=== PATIENT | female | born 1980 | race Caucasian/White ===

== ENCOUNTER → 2020-10-26 08:28 | Outpatient (BNVA) | payer OTHER, MEDICARE, SELFPAY | PROVIDERS: PCP Internal Medicine; Referring Provider Internal Medicine; Visit Provider Surgery ==

== ENCOUNTER 2020-10-31 10:25 | Day surgery (SDC) | payer OTHER, MEDICARE, SELFPAY ==
--- NOTE | 2020-10-29 12:59 | HO.ANESPROP2 ---
Documented by User: Fidelia Landry 10/29/20 13:00 HPI - Anesthesia Eval Consult details Narrative: 40yo F for Excision of Pilonidal Cyst Multiple Med Allergies PMFSH Active Problems Active Problems: All Active Problems (Updated 10/08/20 @ 10:05 by Rene Larsen MD) Pilonidal cyst (Acute) Obesity (Acute) Cyst near tailbone (Acute) Past Medical History Medical History Cyst near tailbone Obesity Obsessive compulsive disorder Overflow stress urinary incontinence in female Posttraumatic stress disorder Seizure disorder Family History Family History Father Chronic mental illness PCK (polycystic kidney disease) Hypothyroidism Post traumatic stress disorder (PTSD) Mother Hyperthyroidism Post traumatic stress disorder (PTSD) Surgical History Surgical History History of lithotripsy Social History Social History Alcohol intake: never Patient Tobacco Use Status: Former Tobacco user Tobacco use type: Cigarette Cigarettes Per Day: 3 Years Smoked: 19 Smoked in Last 30 Days: Yes Use of substances other than those prescribed or required for medical reasons: Yes Are you DNR?: No Advance Directives: No Advance Directives Information Provided: Yes Meds Allergies Allergy/AdvReac Type Severity Reaction Status Date / Time buspirone [From BuSpar] Allergy Severe Seizure Verified 10/08/20 09:58 acetaminophen [Vicodin] Allergy Unknown Unknown Verified 03/16/20 08:21 gabapentin Allergy Unknown memory loss Verified 03/16/20 08:21 hydrocodone [Vicodin] Allergy Unknown Unknown Verified 03/16/20 08:21 lactose [LACTOSE] Allergy Unknown unknown Unverified 02/02/20 17:37 tramadol AdvReac Intermediate hallucinati Verified 10/09/20 15:51 ons Home Medications Medication Instructions Recorded Confirmed Last Taken Type clonazepam 0.5 mg tablet 0.5 mg PO TID PRN 03/19/20 10/26/20 10/31/20 08:00 History lamotrigine 25 mg tablet 50 mg PO BID 03/19/20 10/26/20 10/31/20 08:00 History propranolol 20 mg tablet 20 mg PO DAILY 03/19/20 10/26/20 10/31/20 08:00 History vilazodone 40 mg tablet 40 mg PO DAILY 03/19/20 10/26/20 10/31/20 08:00 History lamotrigine 200 mg tablet 200 mg PO BID 03/28/20 10/26/20 10/31/20 08:00 History quetiapine 150 mg tablet,extended 150 mg PO DAILY 10/08/20 10/26/20 Unknown History release 24 hr Exam Exam Date and Time: October 29, 2020 1259 Assessment and Plan Assessment Anesthesia Assessment: Chart Reviewed Documented by User: Tram Lundberg 10/31/20 10:55 PMFSH Past Medical History Medical History Cyst near tailbone Obesity Obsessive compulsive disorder Overflow stress urinary incontinence in female Posttraumatic stress disorder Seizure disorder Family History Family History Father Chronic mental illness PCK (polycystic kidney disease) Hypothyroidism Post traumatic stress disorder (PTSD) Mother Hyperthyroidism Post traumatic stress disorder (PTSD) Surgical History Surgical History History of lithotripsy Social History Social History Alcohol intake: never Patient Tobacco Use Status: Former Tobacco user Tobacco use type: Cigarette Cigarettes Per Day: 3 Years Smoked: 19 Smoked in Last 30 Days: Yes Use of substances other than those prescribed or required for medical reasons: Yes Are you DNR?: No Advance Directives: No Advance Directives Information Provided: Yes Meds Allergies Allergy/AdvReac Type Severity Reaction Status Date / Time buspirone [From BuSpar] Allergy Severe Seizure Verified 10/08/20 09:58 acetaminophen [Vicodin] Allergy Unknown Unknown Verified 03/16/20 08:21 gabapentin Allergy Unknown memory loss Verified 03/16/20 08:21 hydrocodone [Vicodin] Allergy Unknown Unknown Verified 03/16/20 08:21 lactose [LACTOSE] Allergy Unknown unknown Unverified 02/02/20 17:37 tramadol AdvReac Intermediate hallucinati Verified 10/09/20 15:51 ons Home Medications Medication Instructions Recorded Confirmed Last Taken Type clonazepam 0.5 mg tablet 0.5 mg PO TID PRN 03/19/20 10/26/20 10/31/20 08:00 History lamotrigine 25 mg tablet 50 mg PO BID 03/19/20 10/26/20 10/31/20 08:00 History propranolol 20 mg tablet 20 mg PO DAILY 03/19/20 10/26/20 10/31/20 08:00 History vilazodone 40 mg tablet 40 mg PO DAILY 03/19/20 10/26/20 10/31/20 08:00 History lamotrigine 200 mg tablet 200 mg PO BID 03/28/20 10/26/20 10/31/20 08:00 History quetiapine 150 mg tablet,extended 150 mg PO DAILY 10/08/20 10/26/20 Unknown History release 24 hr Exam Airway Mallampati Class: III TM Dist: >3cm Neck ROM: Full
[2020-10-31] VITALS (7 sets, daily range): BP systolic 134–191; BP diastolic 83–109; PULSE 77–94; RESP 16–18; TEMP 36.3–36.7; O2SAT 94–99; BMI 39.4
[2020-10-31 10:49] LABS: UPreg QC Valid YES; Urine Pregnancy NEGATIVE (NEGATIVE)
[2020-10-31] MEDS: Lactated Ringers 1,000 ML 100 ML IVCONT (11:07)
--- NOTE | 2020-10-31 11:28 | MHC.SHP ---
Pre-Procedural Eval Section A The patient is an INPATIENT: No Changes since office visit: Yes Patient answered all questions; No Cold of Flu in the past 2 weeks, No New Medical Problems and No Changes in Medication The History & Physical has been completed within 30 days and I have reviewed it.: Yes Section B Chief Complaint: Pilonidal cyst Allergies: Allergies Allergy/AdvReac Type Severity Reaction Status Date / Time buspirone [From BuSpar] Allergy Severe Seizure Verified 10/08/20 09:58 acetaminophen [Vicodin] Allergy Unknown Unknown Verified 03/16/20 08:21 gabapentin Allergy Unknown memory loss Verified 03/16/20 08:21 hydrocodone [Vicodin] Allergy Unknown Unknown Verified 03/16/20 08:21 lactose [LACTOSE] Allergy Unknown unknown Verified 10/31/20 11:08 tramadol AdvReac Intermediate hallucinati Verified 10/09/20 15:51 ons Plan Diagnosis/Plan: Unchanged I have reviewed the history and physical and performed a pertinent physical examination on my patient. No changes have occurred unless specified.
--- NOTE | 2020-10-31 12:57 | P.OP_ITS ---
Operative Note Operative Note Date of Service: 10/31/20 Narrative: Preoperative diagnosis: Pilonidal cyst Postoperative diagnosis: Same Procedure: Pilonidal cystectomy Surgeon: Lui Panigaua MD Sweeper Operator Highways: No physician Anesthesia: General endotracheal Indications for procedure: 40-year-old female presenting with a persistent draining well cyst for the past 6 months with drainage noted almost daily. Patient denies significant pain, fever, or chills. Operative findings: Small pilonidal cyst located in the upper intergluteal cleft. Specimen: Pilonidal cyst Estimated blood loss: 10 mL Complications: None Procedure details: Patient was brought to the OR placed in a supine position. After administering general anesthesia she was placed in a prone position. Patient's intergluteal cleft was prepped with Betadine and draped in a sterile fashion. A surgical time-out was called the consent confirmed. Patient received preoperative antibiotics and Venodyne boots were in place. Local anesthesia consisting of 0.25% Sensorcaine was then infiltrated circumfer entially around the pilonidal cyst. A curvilinear elliptical incision was then created around the pilonidal cyst include a punctum located slightly below. The incision measured approximately 3 cm in length. Was then carried out through subcutaneous tissue around the cyst wall and down to the presacral fascia. The lesion was then excised and sent to pathology for further examination. Hemostasis was then assured using electrocautery. The wounds were irrigated thoroughly with saline solution and suctioned dry. Skin was then mobilized bilaterally. Deep subcutaneous tissue was then reapprox imated using interrupted 3-0 Polysorb sutures. Dermis was reapproximated using interrupted 3-0 Polysorb sutures. Skin was closed using interrupted 3-0 nylon sutures in a mattress formation. Sterile dressings were then applied. The patient tolerated the procedure well. Sponge, instrument, and needle counts reported as correct. The patient was transferred to PACU in stable condition.
[2020-10-31] MEDS: oxyCODONE HCl Immed Release 5 MG TABLET PO (13:50)
== END 2020-10-31 14:38 | disposition home or self-care (01) ==
PROVIDERS: Nurse Practitioner; PCP Internal Medicine; Visit Provider Surgery
PROC: (CPT 11771; principal; 2020-10-31 12:10)
DX: L05.91 Pilonidal cyst without abscess (principal); Z88.5 Allergy status to narcotic agent; Z88.8 Allergy status to other drugs, medicaments and biological substances
CPT/HCPCS: 11771; 81025; 87071; 87205; 88304; J0690; J1100; J2250; J2405; J3010

== ENCOUNTER → 2020-11-06 10:34 | Outpatient (BNVA) | payer OTHER, MEDICARE, SELFPAY | PROVIDERS: PCP Internal Medicine; Visit Provider Dietitian, Registered | DX: E66.9 Obesity, unspecified (principal); Z68.39 Body mass index [BMI] 39.0-39.9, adult | CPT/HCPCS: 97802 ==

== ENCOUNTER 2020-11-13 15:41 | Outpatient (REF) | payer OTHER, MEDICARE, SELFPAY ==
[2020-11-13 16:54] LABS: Glucose Urine UA NEG (NEG); Leukocyte Esterase Urine NEG (NEG); Nitrite Urine NEG (NEG); Specific Gravity - Urine >= 1.030 (1.005-1.025); Urine Blood NEG (NEG); Urine Ketones 5 MG/DL (NEG); Urine Protein 1+ MG/DL (NEG-TRACE)
[2020-11-13 16:55] LABS: Appearance Urine HAZY; Color Urine YELLOW
[2020-11-13 17:30] LABS: Bacteria Urine 1+ /LPF; Calcium Oxalate Crystals Urine TRACE /LPF; Mucus Urine 1+ /LPF; RBC Urine 0-2 /HPF (0); Squamous Epithelial Cell Urine TRACE /LPF; WBC Urine 0-2 /HPF (0-4)
== END 2020-11-13 15:42 | disposition home or self-care (01) ==
LOC: HO.LAB 15:41
PROVIDERS: PCP Internal Medicine; Referring Provider Internal Medicine; Visit Provider Surgery
DX: L05.91 Pilonidal cyst without abscess (principal)
CPT/HCPCS: 81001; 99212

== ENCOUNTER → 2020-12-20 15:01 | Outpatient (BNVA) | payer OTHER, MEDICARE, SELFPAY | PROVIDERS: PCP Internal Medicine; Visit Provider Surgery | DX: L05.91 Pilonidal cyst without abscess (principal); Z13.9 Encounter for screening, unspecified ==

== ENCOUNTER 2021-01-07 09:31 | Outpatient (REF) | payer OTHER, MEDICARE, SELFPAY ==
[2021-01-07 11:05] LABS: Glucose Urine UA NEG (NEG); Leukocyte Esterase Urine NEG (NEG); Nitrite Urine NEG (NEG); PH 6.5 (5.0-8.0); Specific Gravity - Urine 1.015 (1.005-1.025); Urine Blood NEG (NEG); Urine Ketones NEG (NEG); Urine Protein NEG (NEG-TRACE)
[2021-01-07 11:13] LABS: Appearance Urine CLEAR; Color Urine YELLOW
[2021-01-07 11:30] LABS: Bacteria Urine TRACE /LPF; RBC Urine 0-2 /HPF (0); Squamous Epithelial Cell Urine 1+ /LPF; WBC Urine 0-2 /HPF (0-4)
== END 2021-01-07 09:32 | disposition home or self-care (01) ==
LOC: HO.LAB 09:31
PROVIDERS: PCP Internal Medicine; Visit Provider Internal Medicine
DX: R30.0 Dysuria (principal)
CPT/HCPCS: 81001; 87086

== ENCOUNTER 2021-01-25 10:56 | Outpatient (REF) | payer OTHER, MEDICARE, SELFPAY | END 2021-01-25 10:57 | disposition home or self-care (01) | LOC: HO.LAB 10:56 | PROVIDERS: PCP Internal Medicine; Visit Provider Internal Medicine | DX: Z20.822 Contact with and (suspected) exposure to COVID-19 (principal) | CPT/HCPCS: U0003; U0005 ==

== ENCOUNTER 2021-01-29 13:51 | Outpatient (REF) | payer OTHER, MEDICARE, SELFPAY | END 2021-01-29 13:52 | disposition home or self-care (01) | LOC: HO.LAB 13:51 | PROVIDERS: PCP Internal Medicine; Visit Provider Internal Medicine | DX: Z20.822 Contact with and (suspected) exposure to COVID-19 (principal) | CPT/HCPCS: C9803; U0003; U0005 ==

== ENCOUNTER 2021-04-17 13:07 | Outpatient (REF) | payer OTHER, MEDICARE, SELFPAY ==
[2021-04-17 14:11] LABS: Appearance Urine CLEAR; Color Urine YELLOW; Glucose Urine UA NEG (NEG); Leukocyte Esterase Urine NEG (NEG); Nitrite Urine NEG (NEG); Specific Gravity - Urine 1.015 (1.005-1.025); Urine Blood NEG (NEG); Urine Ketones NEG (NEG); Urine Protein TRACE MG/DL (NEG-TRACE)
== END 2021-04-17 13:08 | disposition home or self-care (01) ==
LOC: HO.LAB 13:07
PROVIDERS: PCP Internal Medicine; Visit Provider Internal Medicine
DX: R30.0 Dysuria (principal)
CPT/HCPCS: 81003

== ENCOUNTER 2021-08-21 11:57 | Outpatient (REF) | payer OTHER, MEDICARE, SELFPAY ==
[2021-08-21 13:13] LABS: Appearance Urine HAZY; Color Urine YELLOW; Glucose Urine UA NEG (NEG); Leukocyte Esterase Urine TRACE (NEG); Nitrite Urine NEG (NEG); UACC Culture Trigger YES; Urine Blood NEG (NEG); Urine Ketones NEG (NEG); Urine Protein TRACE MG/DL (NEG-TRACE)
[2021-08-21 13:25] LABS: Bacteria Urine 2+ /LPF; Squamous Epithelial Cell Urine 2+ /LPF; WBC Urine 30-49 /HPF (0-4)
== END 2021-08-21 11:58 | disposition home or self-care (01) ==
LOC: HO.LAB 11:57
PROVIDERS: PCP Internal Medicine; Visit Provider Internal Medicine
DX: R30.0 Dysuria (principal)
CPT/HCPCS: 81001; 87086

== ENCOUNTER 2022-02-06 13:57 | Outpatient (REF) | payer OTHER, MEDICARE, SELFPAY ==
[2022-02-06 15:17] LABS: Appearance Urine Hazy; Glucose Urine UA Negative (Negative); Leukocyte Esterase Urine Trace (Negative); PH 6.5 (5.0-9.0); Specific Gravity - Urine 1.025 (1.005-1.025); UMIC TRIGGER UACC YES; Urine Blood Large (3+) (Negative); Urine Ketones Trace mg/dL (Negative); Urine Protein 300 (3+) mg/dL (Neg-Trace)
[2022-02-06 15:21] LABS: Color Urine ORANGE; Nitrite Urine Positive (Negative)
[2022-02-06 15:29] LABS: Bacteria Urine 3+ (None Seen); Hyaline Casts Urine 0-2 /LPF (0-2); RBC Urine >20 /HPF (0-2); UACC Culture Trigger YES
== END 2022-02-06 13:58 | disposition home or self-care (01) ==
LOC: HO.LAB 13:57
PROVIDERS: PCP Internal Medicine; Visit Provider Internal Medicine
DX: R30.0 Dysuria (principal)
CPT/HCPCS: 81001; 81003; 87086; 87088; 87186

== ENCOUNTER 2022-04-09 14:44 | Outpatient (REF) | payer OTHER, MEDICARE, SELFPAY ==
--- NOTE | ~2022-04-09 | US_ITS ---
EXAMINATION: US PELVIS CLINICAL INFORMATION: Encounter for other general counseling and advice on contraception. COMPARISON: None TECHNIQUE: Ultrasound of the pelvis was performed using both transabdominal and transvaginal transducers along with Doppler. Transvaginal imaging was performed due to inadequate visualization transabdominally. FINDINGS: Uterus: The uterus is retroverted and retroflexed and measures 8.0 cm in length, 4.4 cm in AP and 5.2 cm in transverse dimensions. The double wall endometrial thickness is 1.5 cm. There is an echogenic polyp within the endometrium measuring 0.9 x 0.7 x 0.8 cm. The uterus is smooth in contour and has normal myometrial echogenicity. There are several hypoechoic lesions seen. 1. Lesion in the right uterus measures 2.1 x 1.8 x 2.3 cm. 2. Lesion in the right uterus measures 0.9 x 0.9 x 1.0 cm. 3. Lesion in the right uterus measuring 1.8 x 1.4 x 1.4 cm. 4. Lesion in the left uterus measures 1.8 x 1.6 x 1.5 cm. 5. Lesion in the left uterus measures 1.9 x 1.5 x 1.6 cm. There is minimal fluid within the cervix with a small, echogenic, nonmobile polyp measuring 0.3 x 0.3 x 0.3 cm. Adnexa: Both ovaries are visualized. There is normal color flow to the adnexa. There is no ovarian torsion. There is no pelvic ascites or fluid collection. Right ovary measures 2.8 x 1.9 x 2.5 cm and volume 7.0 mL. Previously, the right ovary measured 3.2 x 1.6 x 1.6 cm. Left ovary measures 3.6 x 2.7 x 2.5 cm and volume 12.7 mL. There is a simple, anechoic cyst measuring 2.2 x 2.2 x 2.0 cm. US/US pelvic and transvaginal IMPRESSION: 1. Multiple uterine fibroids as described above. 2. Endometrial polyp measuring 0.9 cm. 3. Small cervical polyp measuring 0.3 cm. 4. Simple cyst left ovary. 5. The right ovary is unremarkable. 6. There is no free fluid in the cul-de-sac.
== END 2022-04-09 14:45 | disposition home or self-care (01) ==
LOC: HO.US 14:44
PROVIDERS: Visit Provider Advanced Practice Midwife
DX: L68.0 Hirsutism (principal); N91.2 Amenorrhea, unspecified; Z91.89 Other specified personal risk factors, not elsewhere classified
CPT/HCPCS: 76830; 76856

== ENCOUNTER → 2022-05-21 08:00 | Outpatient (BNVA) | payer OTHER, MEDICARE, SELFPAY | PROVIDERS: PCP Internal Medicine; Visit Provider Obstetrics & Gynecology | DX: Z13.89 Encounter for screening for other disorder (principal) ==

== ENCOUNTER 2022-05-30 12:17 | Day surgery (SDC) | payer OTHER, MEDICARE, SELFPAY ==
[2022-05-26 20:03] VITALS: BMI 39.4
--- NOTE | 2022-05-29 10:08 | HO.ANESPROP2 ---
Documented by User: Fidelia Landry NP 05/29/22 10:09 HPI - Anesthesia Eval Consult details Narrative: 42yo F for D&C Hysteroscopy,possible polypectomy,possible myomectomy PMFSH Active Problems Active Problems: All Active Problems (Updated 05/27/22 @ 08:37 by Annette Frederick RN) Pilonidal cyst (Acute) Dysuria (Acute) Bipolar 2 disorder, major depressive episode (Acute) Acrochordon (Acute) Actinic keratosis (Acute) Breast cancer screening by mammogram (Acute) Nephrolithiasis (Acute) Tobacco abuse (Acute) BCP ( control pills) initiation (Acute) Anovulatory amenorrhea (Acute) At risk for diabetes mellitus (Acute) Hirsutism (Acute) control counseling (Acute) Fibroids (Acute) Endometrial polyp (Acute) Abnormal uterine bleeding (Acute) Uterine myoma (Acute) Endocervical polyp (Acute) Morbid obesity (Acute) Obesity (Acute) Cyst near tailbone (Acute) Past Medical History Medical History Bipolar disorder Cyst near tailbone Morbid obesity Obesity Obsessive compulsive disorder Overflow stress urinary incontinence in female Posttraumatic stress disorder Seizure disorder Family History Family History Father Chronic mental illness PCK (polycystic kidney disease) Hypothyroidism Post traumatic stress disorder (PTSD) Substance use disorder Mother Hyperthyroidism Post traumatic stress disorder (PTSD) Breast CA, Onset Age: 40 Other Mental health disorder Surgical History Surgical History History of lithotripsy History of surgical removal of pilonidal cyst Social History Social History Housing: Apartment Are you a primary transition of care specialist to a significant other at home: No Do you presently have visiting nurse or other home services: No Alcohol intake: never Patient Tobacco Use Status: Current everyday Tobacco user Tobacco use type: Cigarette Cigarette Packs Per Day: 1 Cigarettes Per Day: 20.0 Years Smoked: 15 Smoked in Last 30 Days: Yes e-Cigarette/Vaping Use: Never Used Patient Interested in Nicotine Replacement: Yes Patient Given Instructions on How to Stop Smoking: Yes Date Education Initiated: 05/26/22 Second Hand Smoke Exposure: Yes Use of substances other than those prescribed or required for medical reasons: Yes Substance Use Frequency: Occasionally Have you been hit, kicked, punched, or otherwise hurt by someone within the past year? If so, by whom?: No [facility] Healthcare Practices: [facility] Are you DNR?: No Advance Directives: No Advance Directives Information Provided: Yes Advance Directives on File: No Recently lost weight without trying: No Eating poorly because of decreased appetite: No Nutrition Risks: No Nutritional Risk Patient : No : No Poor oral hygiene: No service: No Current occupational status: employed Cognitive needs: No Hearing needs: No Vision needs: No Meds Allergies Allergy/AdvReac Type Severity Reaction Status Date / Time acetaminophen [Vicodin] Allergy Severe Unknown Verified 05/21/22 08:13 buspirone [From BuSpar] Allergy Severe Seizure Verified 05/21/22 08:13 gabapentin Allergy Unknown memory loss Verified 05/21/22 08:13 hydrocodone [Vicodin] Allergy Unknown Unknown Verified 05/21/22 08:13 lactose [LACTOSE] Allergy Unknown unknown Verified 05/21/22 08:13 tramadol AdvReac Intermediate hallucinati Verified 05/21/22 08:13 ons Home Medications Medication Instructions Recorded Confirmed Last Taken Type melatonin 5 mg tablet 5 mg PO BEDTIME PRN Sleep 02/05/21 05/27/22 Unknown History fluticasone propionate 50 1 spray intranasal DAILY 05/21/22 Unknown History mcg/actuation nasal spray,suspension Exam Exam Date and Time: May 29, 2022 1008 Height,Weight and Vital Signs: Height 5 ft 4 in Weight 104.326 kg Assessment and Plan Assessment Anesthesia Assessment: Chart Reviewed Documented by User: Yessi Dias MD 05/30/22 13:23 [facility] Past Medical History Medical History Bipolar disorder Cyst near tailbone Morbid obesity Obesity Obsessive compulsive disorder Overflow stress urinary incontinence in female Posttraumatic stress disorder Seizure disorder Family History Family History Father Chronic mental illness PCK (polycystic kidney disease) Hypothyroidism Post traumatic stress disorder (PTSD) Substance use disorder Mother Hyperthyroidism Post traumatic stress disorder (PTSD) Breast CA, Onset Age: 40 Other Mental health disorder Surgical History Surgical History History of lithotripsy History of surgical removal of pilonidal cyst History of Problems with Anesthesia: No Social History Social History Housing: Apartment Are you a primary transition of care specialist to a significant other at home: No Do you presently have visiting nurse or other home services: No Alcohol intake: never Patient Tobacco Use Status: Current everyday Tobacco user Tobacco use type: Cigarette Cigarette Packs Per Day: 1 Cigarettes Per Day: 20.0 Years Smoked: 15 Smoked in Last 30 Days: Yes e-Cigarette/Vaping Use: Never Used Patient Interested in Nicotine Replacement: Yes Patient Given Instructions on How to Stop Smoking: Yes Date Education Initiated: 05/26/22 Second Hand Smoke Exposure: Yes Use of substances other than those prescribed or required for medical reasons: Yes Substance Use Frequency: Occasionally Have you been hit, kicked, punched, or otherwise hurt by someone within the past year? If so, by whom?: No [facility] Healthcare Practices: Mandaen Are you DNR?: No Advance Directives: No Advance Directives Information Provided: Yes Advance Directives on File: No Recently lost weight without trying: No Eating poorly because of decreased appetite: No Nutrition Risks: No Nutritional Risk Patient : No : No Poor oral hygiene: No service: No Current occupational status: employed Cognitive needs: No Hearing needs: No Vision needs: No Meds Allergies Allergy/AdvReac Type Severity Reaction Status Date / Time acetaminophen [Vicodin] Allergy Severe Unknown Verified 05/21/22 08:13 buspirone [From BuSpar] Allergy Severe Seizure Verified 05/21/22 08:13 gabapentin Allergy Unknown memory loss Verified 05/21/22 08:13 hydrocodone [Vicodin] Allergy Unknown Unknown Verified 05/21/22 08:13 lactose [LACTOSE] Allergy Unknown unknown Verified 05/21/22 08:13 tramadol AdvReac Intermediate hallucinati Verified 05/21/22 08:13 ons Home Medications Medication Instructions Recorded Confirmed Last Taken Type melatonin 5 mg tablet 5 mg PO BEDTIME PRN Sleep 02/05/21 05/27/22 Unknown History fluticasone propionate 50 1 spray intranasal DAILY 05/21/22 Unknown History mcg/actuation nasal spray,suspension Exam Airway Mallampati Class: II TM Dist: >3cm Neck ROM: Full Loose/Missing/Broken Teeth: No Heart: RRR Lungs: CTA Assessment and Plan Assessment Anesthesia Assessment: Anesthesia Plan Discussed Final Anesthetic Review History of Problems with Anesthesia: No NPO: Yes ASA Class: III Final Preanesthetic Review: Meds/Allgs Chart Reviewed, Consent Obtained/Reviewed and Anes Risks/Benef Reviewed Patient Risk: Intermediate Procedure Risk: Low Anesthetic Plan Anesthetic Plan: GA Disposition: Standard PACU
[2022-05-30] VITALS (7 sets, daily range): BP systolic 137–160; BP diastolic 62–98; PULSE 83–97; RESP 16–18; TEMP 36.1–36.5; O2SAT 95–100; BMI 39.4
[2022-05-30 12:39] LABS: UPreg QC Valid YES; Urine Pregnancy NEGATIVE (NEGATIVE)
--- NOTE | 2022-05-30 12:40 | MHC.SHP ---
Pre-Procedural Eval Section A Date of Service: 05/30/22 The patient is an INPATIENT: No Changes since office visit: No Cold of Flu in the past 2 weeks, No New Medical Problems, No Changes in Medication and No Patient answered all questions The History & Physical has been completed within 30 days and I have reviewed it.: Yes Section B Chief Complaint: Abnormal uterine and vaginal bleeding, unspecified Allergies: Allergies Allergy/AdvReac Type Severity Reaction Status Date / Time acetaminophen [Vicodin] Allergy Severe Unknown Verified 05/21/22 08:13 buspirone [From BuSpar] Allergy Severe Seizure Verified 05/21/22 08:13 gabapentin Allergy Unknown memory loss Verified 05/21/22 08:13 hydrocodone [Vicodin] Allergy Unknown Unknown Verified 05/21/22 08:13 lactose [LACTOSE] Allergy Unknown unknown Verified 05/21/22 08:13 tramadol AdvReac Intermediate hallucinati Verified 05/21/22 08:13 ons Plan Diagnosis/Plan: Unchanged I have reviewed the history and physical and performed a pertinent physical examination on my patient. No changes have occurred unless specified. Time Spent With Patient Time: Total time managing care of this patient today ____ minutes.
--- NOTE | 2022-05-30 14:53 | P.BOP_ITS ---
Brief Operative Note Date of Service: 05/30/22 Pre-op diagnosis: Uterine bleeding, endometrial polyp by ultrasound Post-op diagnosis: same ( endometrial polyp) Procedure: Hysteroscopy D&C, Polypectomy Surgeon: Percy Case MD Anesthesia: GLMA Was an In Tube Conversion Technician used for this Procedure?: No Estimated blood loss (mL): 0 Pathology: other (Endometrial Scrapping. Polyp) Condition: stable Disposition: PACU
--- NOTE | 2022-05-30 14:53 | P.OP_ITS ---
Operative Note Operative Note Date of Service: 05/30/22 Narrative: Preop Diagnosis: abnormal uterine bleeding, Endometrial polyp by US Operation: Diagnostic Hysteroscopy, Dilataion & Curettage and polypectomy Post Op Diagnosis: Endometrial Polyp QBL: Minimal Anesthesia: GLMA Surgeon: Percy Case MD Operations Leader: None Complication: None Pathology: Endometrial Scrapings, Endometrial polyp Procedure: The patient was put in the dorsal lithotomy position, scrubbed, and draped in the usual manner. A sterile speculum was inserted in the patient's vagina. The anterior lip of the cervix was grasped with a single tooth tenaculum. The cervix was dilated up to 5 mm, then the scope was inserted in the patient's uterus. Inspection revealed endometrial polyp. The Myosure Reach device was used; it was introduced through the operative channel and polypectomy done with no complications. The scope was then taken out from the uterine cavity, sharp curettings was carried on with minimal to moderate amount of tissues retrieved. At the end of the procedure, all instruments were taken out of the patient uterine and vaginal cavity. The single tooth tenaculum was removed and homeostasis was assured using pressure,. The patient tolerated the procedure well and was transferred to the PACU in a stable condition.
[2022-05-30] MEDS: oxyCODONE HCl Immed Release 5 MG TABLET PO (15:13)
[2022-05-30] MEDS: Acetaminophen 325 MG TABLET 650 MG PO (15:13)
== END 2022-05-30 15:59 | disposition home or self-care (01) ==
PROVIDERS: PCP Internal Medicine; Visit Provider Obstetrics & Gynecology
PROC: 0UDB8ZZ Extraction of Endometrium, Via Natural or Artificial Opening Endoscopic (ICD-10-PCS; CPT 58558; principal; 2022-05-30 14:20)
DX: N93.9 Abnormal uterine and vaginal bleeding, unspecified (principal); N84.0 Polyp of corpus uteri; N39.3 Stress incontinence (female) (male); N39.490 Overflow incontinence; G40.909 Epilepsy, unspecified, not intractable, without status epilepticus; F43.10 Post-traumatic stress disorder, unspecified; F42.9 Obsessive-compulsive disorder, unspecified; E66.01 Morbid (severe) obesity due to excess calories; Z68.39 Body mass index [BMI] 39.0-39.9, adult; Z79.899 Other long term (current) drug therapy; Z88.8 Allergy status to other drugs, medicaments and biological substances
CPT/HCPCS: 58558; 81025; 88305; J1100; J2250; J2405; J3010

== ENCOUNTER → 2022-06-16 14:06 | Outpatient (BNVA) | payer OTHER, MEDICARE, SELFPAY | PROVIDERS: PCP Internal Medicine; Visit Provider Obstetrics & Gynecology | DX: Z13.89 Encounter for screening for other disorder (principal) ==

== ENCOUNTER 2022-06-23 14:25 | Outpatient (REF) | payer OTHER, MEDICARE, SELFPAY ==
--- NOTE | ~2022-06-23 | XR_ITS ---
EXAMINATION: XR SHOULDER, RIGHT CLINICAL INFORMATION: Pain of 7 years' duration. COMPARISON: None TECHNIQUE: AP external rotation, Grashey, scapular Y, and axillary views of the right shoulder. FINDINGS: Bony alignment and mineralization are normal. The glenohumeral joint is intact and shows very mild peripheral osteophyte formation. The acromioclavicular and coracoclavicular intervals are normal. No fracture or dislocation is seen. A 6 mm osteophyte versus exostosis arises from the distal acromion process. There is mild cortical irregularity of the greater tuberosity of the proximal right humerus. No fracture or dislocation is seen. There is no soft tissue calcification or foreign body. No right pneumothorax is seen. XR/XR shoulder RT min 2V IMPRESSION: 1. A 6 mm osteophyte versus exostosis is seen arising from the distal right acromial process. There are findings consistent with mild right rotator cuff impingement. 2. 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
== END 2022-06-23 14:26 | disposition home or self-care (01) ==
LOC: HO.XRAY 14:25
PROVIDERS: PCP Internal Medicine; Visit Provider Internal Medicine
DX: M25.511 Pain in right shoulder (principal)
CPT/HCPCS: 73030

== ENCOUNTER → 2022-08-19 12:33 | Outpatient (BNVA) | payer OTHER, MEDICARE, SELFPAY | PROVIDERS: PCP Internal Medicine; Visit Provider Physician Assistant | DX: Z13.89 Encounter for screening for other disorder (principal) ==

== ENCOUNTER 2022-09-01 12:38 | Outpatient (REF) | payer OTHER, MEDICARE, MEDICAID, SELFPAY ==
[2022-09-01 14:21] LABS: Appearance Urine Clear; Color Urine Dark Yellow; Glucose Urine UA Negative (Negative); Leukocyte Esterase Urine Negative (Negative); Nitrite Urine Negative (Negative); PH 6.5 (5.0-9.0); Urine Blood Negative (Negative); Urine Ketones Negative (Negative); Urine Protein Trace mg/dL (Neg-Trace)
[2022-09-01 14:41] LABS: Alanine Aminotransferase 30 U/L (0-31); Albumin Level 4.9 g/dL (3.5-5.0); Alkaline Phosphatase 123 U/L (39-117); Anion Gap 15 (12-20); Aspartate Amino Transferase 27 U/L (5-31); Bilirubin Total 0.5 mg/dL (0.0-1.0); Blood Urea Nitrogen 10 mg/dL (9-16); Calcium 9.5 mg/dL (8.4-10.2); Carbon Dioxide 23 mmol/L (22-29); Chloride 106 mmol/L (96-108); Cholesterol 224 mg/dL; Estimated Glomerular Filt Rate > 60; Glucose Random 93 mg/dL (60-115); HDL Cholesterol 33 mg/dL; LDL Cholesterol Calculated 161 mg/dl; Potassium 3.9 mmol/L (3.3-5.1); Sodium 140 mmol/L (135-145); Total Protein 7.7 g/dL (6.5-8.0); Triglycerides 153 mg/dL
[2022-09-01 14:58] LABS: Free T4 (Free Thyroxine) 1.02 ng/dL (0.71-1.85); HCG Quantitative < 2 mIU/mL; TSH reflex Free T4 0.99 uIU/mL (0.32-4.0); Thyroid Stimulating Hormone 0.96 uIU/mL (0.32-4.0); Vitamin D 25-OH Total 23.3 ng/mL (>30)
[2022-09-01 15:13] LABS: Folate 9.7 ng/mL (> or = 4.0); Thyroid Stimulating Hormone 0.95 uIU/mL (0.32-4.0); Vitamin B12 647 pg/mL (200-900)
[2022-09-02 07:17] LABS: DHEA Sulfate 235 mcg/dL (15-205); Follicle Stimulating Hormone 15.5 mIU/mL
[2022-09-02 17:29] LABS: Follicle Stimulating Hormone 16.3 mIU/mL; Lutenizing Hormone 5.7 mIU/mL; Prolactin 8.8 ng/mL
== END 2022-09-01 12:39 | disposition home or self-care (01) ==
LOC: HO.HMGCLDS 12:38
PROVIDERS: Absent Provider Obstetrics & Gynecology; PCP Internal Medicine; Referring Provider Advanced Practice Midwife; Visit Provider Internal Medicine
DX: E66.01 Morbid (severe) obesity due to excess calories (principal); L68.0 Hirsutism; N91.2 Amenorrhea, unspecified; F31.81 Bipolar II disorder; R30.0 Dysuria; N20.0 Calculus of kidney; E55.9 Vitamin D deficiency, unspecified; E78.00 Pure hypercholesterolemia, unspecified; Z30.09 Encounter for other general counseling and advice on contraception; Z91.89 Other specified personal risk factors, not elsewhere classified; Z20.2 Contact with and (suspected) exposure to infections with a predominantly sexual mode of transmission
CPT/HCPCS: 36415; 80053; 80061; 81003; 82306; 82607; 82627; 82746; 83001; 83002; 83498; 84146; 84402; 84403; 84439; 84443; 84702

== ENCOUNTER → 2022-09-11 15:05 | Outpatient (BNVA) | payer OTHER, MEDICARE, MEDICAID, SELFPAY | PROVIDERS: PCP Internal Medicine; Visit Provider Obstetrics & Gynecology | DX: Z13.89 Encounter for screening for other disorder (principal) ==

== ENCOUNTER 2022-10-22 08:45 | Outpatient (REF) | payer OTHER, MEDICARE, MEDICAID, SELFPAY ==
[2022-10-22 11:11] LABS: MANUAL DIFF FLAG NO
[2022-10-22 11:19] LABS: Basophils Absolute Auto 0.1 X10*3/uL (0.0-0.2); Basophils Percent Auto 0.8 % (0-2); Eosinophils Absolute Auto 0.7 X10*3/uL (0.0-0.4); Eosinophils Percent Auto 8.3 % (0-4); Hematocrit 44.5 % (37.0-47.0); Hemoglobin 14.8 g/dl (12.0-16.0); Imm Gran Abs Auto 0.02 X10*3/uL (0.00-0.03); Imm Gran Pct Auto 0.2 % (0.0-0.4); Lymphocytes Absolute Auto 1.9 X10*3/uL (1.2-4.9); Lymphocytes Percent Auto 22.6 % (20-40); Mean Corpuscular HGB Conc 33.3 g/dl (31.0-35.0); Mean Corpuscular Volume 96.3 fL (80.0-98.0); Mean Platelet Volume 10.4 fL (9.4-12.3); Monocytes Absolute Auto 0.4 X10*3/uL (0.1-1.2); Monocytes Percent Auto 5.2 % (2-11); Neutrophils Absolute Auto 5.2 x10*3/uL (2.0-8.3); Neutrophils Percent Auto 62.9 % (45-73); Platelet Count 296 X10*3/uL (160-400); Red Blood Count 4.62 X10*6/uL (4.20-5.50); Red Cell Distribution Width 12.5 % (11.0-16.0); White Blood Count 8.2 X10*3/uL (4.8-10.8)
[2022-10-22 11:49] LABS: Estimated Average Glucose 97 mg/dL
== END 2022-10-22 08:46 | disposition home or self-care (01) ==
LOC: HO.HMGCLDS 08:45
PROVIDERS: Absent Provider Advanced Practice Midwife; PCP Internal Medicine; Visit Provider Internal Medicine
DX: E66.01 Morbid (severe) obesity due to excess calories (principal); L68.0 Hirsutism; N91.2 Amenorrhea, unspecified; F31.81 Bipolar II disorder; Z91.89 Other specified personal risk factors, not elsewhere classified
CPT/HCPCS: 36415; 83036; 85025

== ENCOUNTER 2022-12-16 11:37 | Outpatient (REF) | payer OTHER, MEDICARE, SELFPAY ==
--- NOTE | ~2022-12-16 | XR_ITS ---
EXAMINATION: XR CERVICAL SPINE CLINICAL INFORMATION: Cervical spondylosis without myelopathy COMPARISON: None available. TECHNIQUE: 3 views of cervical spine FINDINGS: Vertebral bodies are well aligned with mild narrowing cough C3-C4, C5-C6 intervertebral disc spaces Limited evaluation of C7-T1. There is no evidence of spondylolysis or listhesis, pedicles are preserved. On odontoid view revealed no abnormal findings. Soft tissues unremarkable. XR/XR cervical spine 3V IMPRESSION: Mild degenerative changes with narrowing of C3-C4, C5-C6.
--- NOTE | ~2022-12-16 | US_ITS ---
EXAMINATION: US PELVIS CLINICAL INFORMATION: months ago. COMPARISON: Pelvic ultrasound 04/09/2022. TECHNIQUE: Ultrasound of the pelvis is performed using both transabdominal and transvaginal transducers along with Doppler. Transvaginal imaging is performed due to inadequate visualization transabdominally. FINDINGS: Uterus: The uterus is retroverted and measures 7.5 x 3.4 x 5.5 cm. The double wall endometrial thickness is 4 mm. There are multiple uterine fibroids without significant change from prior. Adnexa: Both ovaries are visualized. There is normal color flow to the adnexa. There is no ovarian torsion. There is no pelvic ascites or fluid collection. Right ovary measures 2.8 x 1.8 x 2.5 cm. Volume 6.6 mL. The right ovary appears normal. Left ovary measures 4.0 x 3.0 x 2.7 cm. Volume 17.0 mL. 2.6 cm simple cyst in the left ovary which is a follicle, normal finding. No follow-up imaging is recommended. US/US pelvic and transvaginal IMPRESSION: The previously seen endometrial polyp is no longer seen. Fibroid uterus.
== END 2022-12-16 11:38 | disposition home or self-care (01) ==
LOC: HO.US 11:37
PROVIDERS: Absent Provider Nurse Practitioner Family; PCP Internal Medicine; Visit Provider Obstetrics & Gynecology
DX: D21.9 Benign neoplasm of connective and other soft tissue, unspecified (principal); M47.812 Spondylosis without myelopathy or radiculopathy, cervical region; M54.12 Radiculopathy, cervical region; M25.511 Pain in right shoulder
CPT/HCPCS: 72040; 76830; 76856

== ENCOUNTER 2022-12-16 12:52 | Outpatient (AMB) | payer OTHER, SELFPAY ==
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
[2022-12-16 13:07] VITALS: BP 159/75; PULSE 81; O2SAT 99; BMI 37.6
== END 2022-12-16 13:31 | disposition home or self-care (01) ==
PROVIDERS: PCP Internal Medicine; Visit Provider Nurse Practitioner Family
DX: M47.22 Other spondylosis with radiculopathy, cervical region (principal); M25.511 Pain in right shoulder
CPT/HCPCS: 99204

== ENCOUNTER 2022-12-18 16:00 | Outpatient (RCR) | payer OTHER, MEDICARE, SELFPAY ==
--- NOTE | 2022-12-04 16:11 | MHC.PT.EP ---
[facility] [place] Office [place] Office [place] Office [address] [phone] F: [phone] F: [phone] F: [phone] F: [phone] Physical Therapy Plan of Care Date of Evaluation: Date of Surgery: NA Diagnosis: Pain in R shoulder, R radiculopathy cervical region, Assessment: Isabelle is a 42 yo female referred to PT for Pain in R shoulder, R radiculopathy cervical region . On examination signs and symptoms suggestive of supraspinatus tendinopathy and ? AC joint/ labral involvement. Impairments include decrease R shoulder ROM and strength, TTP/Pain/increased tissue tension at upper trap/supraspinatus, pain at AC joint, pain at R inferior scapular border, and pain with some cervical ROM. Functional limitations such as inability to reach over head, difficulty reaching behind back/over head, inability to lift heavy objects, compensating using L UE, walking dog (pulling), sleeping on R side, and reaching across body. PT needed to address aforementioned impairments and functional limitations. PT to include STM, hot/cold pack, shoulder/neck strength/ROM, US, iontophoresis, postural education, pt education, and HEP. Frequency and Duration: The patient will be seen 2x a week for 5 weeks Short Term Goals: In 3 weeks... 1. Pt will be I with all HEP 2. Pt will be able to reach over head with 50% less pain Residential Goals: In 5 weeks... 1. Pt will increase R shoulder strength by 1 MMT point in order to walk dog on leash w/o letting dog pull on leash 2. Pt will increase shoulder ROM w/o pain in order to reach behind back for washing and dressing Treatment Plan: Modalities to reduce pain, spasms and effusion. Manual therapy to restore motion and function. Therapeutic exercise to improve strength and flexibility. Neuromuscular re-education for posture and balance. Therapeutic activities to return to functional activities of daily living. Electronically signed by: Yadi Roach, PT Please sign and return to therapist. Thank you for your referral.
--- NOTE | 2023-01-06 08:45 | MHC.PT.DC ---
[facility] [place] Office [place] Office [place] Office [address] Meena Kaba [address] [phone] F: [phone] F: [phone] F: [phone] F: [phone] Physical Therapy Discharge Report Diagnosis: Pain in R shoulder, R radiculopathy cervical region, Date of Surgery: NA Date of Evaluation: 12/04/22 Date of Discharge: 01/06/23 Treatments to Date: 3 Cancellations to Date: 1 No Shows to Date: 3 Discharge Status: Visit Non-compliance Discharge Summary: Pt has had 3 consecutive no show visit and is now d/c secondary to noncompliance with scheduling policy Electronically signed by: Yadi Roach PT Please sign and return to therapist. Thank you for your referral.
== END 2023-01-06 08:45 | disposition home or self-care (01) ==
LOC: HO.PT 16:00
PROVIDERS: PCP Internal Medicine; Visit Provider Nurse Practitioner Family
DX: M25.511 Pain in right shoulder (principal); M54.12 Radiculopathy, cervical region
CPT/HCPCS: 97110; 97140; 97161

== ENCOUNTER 2022-12-25 15:21 | Outpatient (AMB) | payer OTHER, SELFPAY ==
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
[2022-12-25 15:33] VITALS: BP 205/125; PULSE 86; O2SAT 97; BMI 37.8
[2022-12-25 15:34] VITALS: BP 194/112
[2022-12-25 15:53] VITALS: BP 175/104; PULSE 78; RESP 16
== END 2022-12-25 15:56 | disposition home or self-care (01) ==
PROVIDERS: PCP Internal Medicine; Visit Provider Nurse Practitioner Family
DX: M47.22 Other spondylosis with radiculopathy, cervical region (principal); M25.511 Pain in right shoulder
CPT/HCPCS: 99214

== ENCOUNTER → 2022-12-25 15:21 | Outpatient (BNVA) | payer OTHER, SELFPAY | PROVIDERS: PCP Internal Medicine; Visit Provider Nurse Practitioner Family ==

== ENCOUNTER 2023-01-22 14:43 | Outpatient (AMB) | payer OTHER, MEDICARE, MEDICAID, SELFPAY ==
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
[2023-01-22 14:54] VITALS: BP 144/86; PULSE 85; O2SAT 99; BMI 36.9
== END 2023-01-22 15:42 | disposition home or self-care (01) ==
PROVIDERS: PCP Internal Medicine; Visit Provider Internal Medicine
DX: M75.41 Impingement syndrome of right shoulder (principal); M54.2 Cervicalgia; E66.09 Other obesity due to excess calories; Z68.36 Body mass index [BMI] 36.0-36.9, adult; Z72.0 Tobacco use; E78.00 Pure hypercholesterolemia, unspecified
CPT/HCPCS: 99214

== ENCOUNTER 2023-01-27 06:05 | Outpatient (REF) | payer OTHER, SELFPAY ==
--- NOTE | ~2023-01-27 | FL_ITS ---
EXAMINATION: XR FLUOROSCOPY WITH IMAGES CLINICAL INFORMATION: Cervicalgia. COMPARISON: None available. TECHNIQUE: Fluoroscopy Supervised By: Dr. Lc Orellana. Fluoroscopy Time: 1.0 minutes. Cumulative Dose: 10.8 mGy. DAP: 2.96 Gycm2. Images: 7. FINDINGS: Images demonstrate needle placement and contrast injection adjacent to the bilateral lateral C4, C5 and C6 vertebrae. FL/FL guidance in treatment room IMPRESSION: Fluoroscopic guidance for pain management procedure.
== END 2023-01-27 06:06 | disposition home or self-care (01) ==
LOC: CF 06:05
PROVIDERS: Visit Provider Anesthesiology
DX: M54.2 Cervicalgia (principal); M54.12 Radiculopathy, cervical region; M47.812 Spondylosis without myelopathy or radiculopathy, cervical region; M25.511 Pain in right shoulder
CPT/HCPCS: 64490; 64491; J2795

== ENCOUNTER 2023-01-27 10:09 | Outpatient (AMB) | payer OTHER, SELFPAY ==
--- NOTE | 2023-01-27 10:54 | MHC.OFFVIS ---
Intake Vital Signs 01/27/23 14:28 01/27/23 14:29 Height 5 ft 4 in 5 ft 4 in Weight 215 lb 215 lb BMI 36.9 36.9 BP 130/88 130/62 Blood Pressure Location Rt brachial Lt brachial Position Sitting Sitting Respiration 16 16 Pulse 77 74 Pulse Source Pulse Oximeter Pulse Oximeter Pulse Oximetry (%) 97 97 Oxygen Delivery Method Room Air Room Air Comment pre-op post-op Intake Visit Reasons: BILAT DX C4-C5-C6 MBB/LOCAL *ATIVAN Allergies buspirone [From BuSpar] Allergy (Severe, Verified 01/27/23 14:30) Seizure gabapentin Allergy (Unknown, Verified 01/27/23 14:30) memory loss hydrocodone [Vicodin] Allergy (Unknown, Verified 01/27/23 14:30) Unknown lactose [LACTOSE] Allergy (Unknown, Verified 01/27/23 14:30) unknown tramadol Adverse Reaction (Intermediate, Verified 01/27/23 14:30) hallucinations PFSH Medical History At risk for diabetes mellitus Bipolar disorder control counseling Cyst near tailbone Obesity Obsessive compulsive disorder Overflow stress urinary incontinence in female Posttraumatic stress disorder Seizure disorder Surgical History History of lithotripsy History of surgical removal of pilonidal cyst Family History Father Chronic mental illness PCK (polycystic kidney disease) Hypothyroidism Post traumatic stress disorder (PTSD) Substance use disorder Mother Hyperthyroidism Post traumatic stress disorder (PTSD) Breast CA, Onset Age: 40 Other Mental health disorder Social History Housing: Apartment Are you a primary healthcare economics manager to a significant other at home: No Do you presently have visiting nurse or other home services: No Alcohol intake: never Patient Tobacco Use Status: Current everyday Tobacco user Tobacco use type: Cigarette Cigarette Packs Per Day: 1 Cigarettes Per Day: 20.0 Years Smoked: 15 e-Cigarette/Vaping Use: Never Used Second Hand Smoke Exposure: Yes service: No Current occupational status: employed Cognitive needs: No Hearing needs: No Vision needs: No Female Reproductive History Menstrual Age of Menarche: 11 Physical Exam Vital Signs: Last Vital Signs Pulse 74 01/27/23 14:29 Resp 16 01/27/23 14:29 BP 130/62 01/27/23 14:29 Pulse Ox 97 01/27/23 14:29 Oxygen Delivery Method Room Air 01/27/23 14:29 BMI result Body Mass Index 36.9 Assessment & Plan Assessment & Plan (1) Cervical radiculopathy: Code(s): M54.12 - Radiculopathy, cervical region (2) Cervical spondylosis: Code(s): M47.812 - Spondylosis without myelopathy or radiculopathy, cervical region (3) Shoulder pain, right: Comment: states ? fracture 2014 Code(s): M25.511 - Pain in right shoulder Plan: Bilatera C4-C4- C6 diagnostic medial branch block. ?Informed consent was explained to the patient. All questions were explained and answered.? The patient was taken inside the operating room where she was positioned prone on the operating table. Time-out was performed delineating correct site, side, the nature of the procedure, patient's allergy, preoperative antibiotic if needed.? All operating room staff was participating in OR time-out procedure. The back of the neck and upper back were prepped with ChloraPrep and draped with sterile towels.? Sterilely draped C-arm was brought over the operating field and sq picture of? C4-C5-C6 vertebrae were delineated on the screen.? Points of interest were delineated as lateral masses bilaterally of the vertebrae as above. The waste of each lateral mass was chosen as the target of the tip of the needles on AP view and lateral view was used as a safety view for the tips of the needles position.?? The projections of the point of interest to the skin were injected with the small amount of local anesthetic lidocaine 2% 1-1.5 cc.? After that 22 gauge 3 and 1/2 inch? spinal needles were driven to the point of interest in tunnel vision fashion. After needles gently contacted the bone at the point of interests the needle was injected with small amount of the contrast. The injections did not demonstrate intravascular or intrathecal spread.. After that ropivacaine 0.5%-1cc. was injected into each location of the needles..? Upon completion of the injections the needles were removed and sterile dressings were applied, the patient was a taken? outside of the operating room to recovery room where she recovered uneventfully. Plan Reviewed recent cervical spine imaging and interventional treatments for axial and radicular cervical pain with patient today. Schedule Diagnostic Bilateral C4-C5-C6 MBB with local/oral Ativan and fluoroscopy. If she has significant relief from the diagnostic blocks for her axial cervical pain, will consider either therapeutic injections, Sprint PNS or RFA depending on her preference. Expectations, risks and benefits were reviewed. Patient is aware she will be contacted to schedule this procedure. Continue cyclobenzaprine and oxycodone already prescribed by her PCP. All questions and concerns have been answered and patient agreed with the plan. Follow up after injections and sooner if needed. Orders: Orders FL guidance in treatment room Today M54.2 - Cervicalgia Coding Level of Care Code Procedure Only Diagnoses Cervical radiculopathy M54.12 Cervical spondylosis M47.812 Shoulder pain, right M25.511
[2023-01-27 14:28] VITALS: BP 130/88; PULSE 77; RESP 16; O2SAT 97; BMI 36.9
[2023-01-27 14:29] VITALS: BP 130/62; PULSE 74; RESP 16; O2SAT 97; BMI 36.9
== END 2023-01-27 11:45 | disposition home or self-care (01) ==
LOC: HO.PMCPRC 10:09
PROVIDERS: PCP Internal Medicine; Visit Provider Anesthesiology
DX: M47.22 Other spondylosis with radiculopathy, cervical region (principal); M25.511 Pain in right shoulder
CPT/HCPCS: 64490; 64491

== ENCOUNTER 2023-01-29 08:54 | Outpatient (AMB) | payer OTHER, SELFPAY ==
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
[2023-01-29 09:06] VITALS: BP 140/90; PULSE 102; RESP 16; O2SAT 96; BMI 38.6
== END 2023-01-29 09:21 | disposition home or self-care (01) ==
PROVIDERS: PCP Internal Medicine; Visit Provider Anesthesiology
DX: M47.812 Spondylosis without myelopathy or radiculopathy, cervical region (principal); M25.511 Pain in right shoulder; M54.2 Cervicalgia; G89.4 Chronic pain syndrome
CPT/HCPCS: 99214

== ENCOUNTER → 2023-01-29 08:54 | Outpatient (BNVA) | payer OTHER, SELFPAY | PROVIDERS: PCP Internal Medicine; Visit Provider Anesthesiology ==

== ENCOUNTER → 2023-03-02 08:34 | Outpatient (BNVA) | payer OTHER, SELFPAY | PROVIDERS: PCP Internal Medicine; Visit Provider Obstetrics & Gynecology ==

== ENCOUNTER 2023-03-02 08:36 | Outpatient (AMB) | payer OTHER, SELFPAY ==
--- NOTE | 2023-03-02 08:56 | MHC.OFFVIS ---
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 Required: No Allergies buspirone [From BuSpar] Allergy (Severe, Verified 03/02/23 08:57) Seizure gabapentin Allergy (Unknown, Verified 03/02/23 08:57) memory loss hydrocodone [Vicodin] Allergy (Unknown, Verified 03/02/23 08:57) Unknown lactose [LACTOSE] Allergy (Unknown, Verified 03/02/23 08:57) unknown tramadol Adverse Reaction (Intermediate, Verified 03/02/23 08:57) hallucinations Is last menstrual period known: Yes Last menstrual period: 02/08/23 Post menopausal: No HPI HPI Comments History of Present Illness Details Presenting for follow-up pelvic ultrasound with no complaints, no pelvic pressure or pain upon uterine bleeding. Ultrasound done recently showed the following: Uterus: The uterus is retroverted and measures 7.5 x 3.4 x 5.5 cm. The double wall endometrial thickness is 4 mm. There are multiple uterine fibroids without significant change from prior. Adnexa: Both ovaries are visualized. There is normal color flow to the adnexa. There is no ovarian torsion. There is no pelvic ascites or fluid collection. Right ovary measures 2.8 x 1.8 x 2.5 cm. Volume 6.6 mL. The right ovary appears normal. Left ovary measures 4.0 x 3.0 x 2.7 cm. Volume 17.0 mL. 2.6 cm simple cyst in the left ovary which is a follicle, normal finding. No follow-up imaging is recommended. [facility] Medical History Bipolar disorder control counseling At risk for diabetes mellitus Obesity Overflow stress urinary incontinence in female Posttraumatic stress disorder Seizure disorder Obsessive compulsive disorder Cyst near tailbone Surgical History History of surgical removal of pilonidal cyst History of lithotripsy Family History Father Chronic mental illness PCK (polycystic kidney disease) Hypothyroidism Post traumatic stress disorder (PTSD) Substance use disorder Mother Hyperthyroidism Post traumatic stress disorder (PTSD) Breast CA, Onset Age: 41 Other Mental health disorder Social History Housing: Apartment Are you a primary home care consultant to a significant other at home: No Do you presently have visiting nurse or other home services: No Alcohol intake: never Patient Tobacco Use Status: Current everyday Tobacco user Tobacco use type: Cigarette Cigarette Packs Per Day: 1 Cigarettes Per Day: 20.0 Years Smoked: 15 e-Cigarette/Vaping Use: Never Used Second Hand Smoke Exposure: Yes service: No Current occupational status: employed Cognitive needs: No Hearing needs: No Vision needs: No Female Reproductive History Menstrual Age of Menarche: 11 Date of last menstrual period: 02/08/23 control method: none Date of last pap smear: 06/16/18 (negative) Review of Systems Const All systems reviewed & are unremarkable except as noted in HPI and below Reports as per HPI and Reports no additional complaints GI Reports no additional complaints Reports no additional complaints Physical Exam Vital Signs: Last Vital Signs BP 132/82 03/02/23 08:57 BMI result Body Mass Index 38.6 Assessment & Plan Assessment & Plan Orders: Orders MM screening mammo BI Today Z12.31 - Encounter for screening mammogram for malignant neoplasm of breast Patient Instructions: Discussed with the patient the findings on pelvic ultrasound & the risk of myosarcoma; discussed with the patient the options of treatment including expectant management versus hysterectomy; the pros and cons, risks benefits of each approach were discussed with the patient including the fact that in cases of myosarcoma, surgical treatment can lead to early diagnosis and positively affects the prognosis; after further discussion, the patient decided to proceed with expectant management. Will repeat pelvic ultrasound periodically. Instructions given to patient to call in case any of the following occurs: pressure symptoms, abnormal uterine bleeding, pelvic pain; and to schedule a future office follow-up appointment for reassessment and to order a repeat ultrasound . All questions answered, the patient verbalized understanding and agreed with the plan . Coding Level of Care Code Est Pt Level 3 (20086)
[2023-03-02 08:57] VITALS: BP 132/82; BMI 38.6
== END 2023-03-02 09:10 | disposition home or self-care (01) ==
PROVIDERS: PCP Internal Medicine; Visit Provider Obstetrics & Gynecology
DX: D25.9 Leiomyoma of uterus, unspecified (principal); Z71.2 Person consulting for explanation of examination or test findings
CPT/HCPCS: 99213

== ENCOUNTER 2023-03-19 13:42 | Outpatient (REF) | payer OTHER, SELFPAY | END 2023-03-19 13:43 | disposition home or self-care (01) | LOC: HO.MAMMO 13:42 | PROVIDERS: PCP Internal Medicine; Visit Provider Obstetrics & Gynecology | DX: Z12.31 Encounter for screening mammogram for malignant neoplasm of breast (principal) | CPT/HCPCS: 77063; 77067 ==

== ENCOUNTER → 2023-03-19 13:45 | Outpatient (BNV) | payer OTHER, SELFPAY | PROVIDERS: PCP Internal Medicine; Visit Provider Radiology Diagnostic Radiology | DX: Z12.31 Encounter for screening mammogram for malignant neoplasm of breast (principal) | CPT/HCPCS: 77063; 77067 ==

== ENCOUNTER → 2023-03-30 08:30 | Outpatient (BNV) | payer OTHER, SELFPAY | PROVIDERS: Visit Provider Psychiatry & Neurology Psychiatry | DX: F43.12 Post-traumatic stress disorder, chronic (principal); F31.81 Bipolar II disorder; F11.21 Opioid dependence, in remission | CPT/HCPCS: 90792; 99213; 99214 ==

== ENCOUNTER 2023-04-02 12:52 | Outpatient (AMB) | payer OTHER, SELFPAY ==
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
[2023-04-02 12:59] VITALS: BP 128/76; PULSE 98; O2SAT 97
== END 2023-04-02 13:45 | disposition home or self-care (01) ==
PROVIDERS: Visit Provider Nurse Practitioner Family
DX: F11.21 Opioid dependence, in remission (principal)
CPT/HCPCS: 99204

== ENCOUNTER → 2023-04-02 12:52 | Outpatient (BNVA) | payer OTHER, SELFPAY | PROVIDERS: Visit Provider Nurse Practitioner Psychiatric/Mental Health ==

== ENCOUNTER 2023-04-08 13:59 | Outpatient (AMB) | payer OTHER, SELFPAY ==
--- NOTE | 2023-04-08 13:59 | MHC.OFFVIS ---
Intake Vital Signs 04/08/23 14:04 BP 128/74 Blood Pressure Location Lt radial Position Sitting Pulse 93 Pulse Source Pulse Oximeter Pulse Oximetry (%) 98 Oxygen Delivery Method Room Air Intake Visit Reasons: mat visit Intake Note: the patient presents for a mat visit Apparel Cutter Required: No Allergies buspirone [From BuSpar] Allergy (Severe, Verified 04/08/23 14:05) Seizure gabapentin Allergy (Unknown, Verified 04/08/23 14:05) memory loss hydrocodone [Vicodin] Allergy (Unknown, Verified 04/08/23 14:05) Anaphylaxis lactose [LACTOSE] Allergy (Unknown, Verified 04/08/23 14:05) unknown tramadol Adverse Reaction (Intermediate, Verified 04/08/23 14:05) hallucinations Do you need a note to return to daycare/school/sports/work: No HPI mat visit HPI Details Pt presents for MAT visit. She has been taking 2mg of suboxone BID and reports that this dose has been working well for her. Denies any cravings reporting the suboxone settles her . No concerns for side effects at this time. She reports this last week has gone well, she is finishing up partial next week on the . Future and goal oriented, excited to have found something that has helped her to decrease cravings. 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 [facility] Medical History (Updated 04/02/23 @ 09:43 by Sara Rand RN) History of hypercholesterolemia History of nephrolithiasis Hypertension Bipolar disorder control counseling At risk for diabetes mellitus Obesity Overflow stress urinary incontinence in female Posttraumatic stress disorder Seizure disorder Obsessive compulsive disorder Cyst near tailbone Surgical History History of surgical removal of pilonidal cyst History of lithotripsy Family History Father Chronic mental illness PCK (polycystic kidney disease) Hypothyroidism Post traumatic stress disorder (PTSD) Substance use disorder Mother Hyperthyroidism Post traumatic stress disorder (PTSD) Breast CA, Onset Age: 40 Other Mental health disorder Household Members: Other Household Members Other:: Her dog Housing: Apartment Are you a primary patient care director to a significant other at home: No Do you presently have visiting nurse or other home services: No Alcohol intake: never Patient Tobacco Use Status: Current everyday Tobacco user Tobacco use type: Cigarette Cigarette Packs Per Day: 1 Cigarettes Per Day: 20 Years Smoked: 15 e-Cigarette/Vaping Use: Never Used Second Hand Smoke Exposure: Yes service: No Current occupational status: employed Cognitive needs: No Hearing needs: No Vision needs: No Female Reproductive History Menstrual Age of Menarche: 11 Review of Systems Const Reports as per HPI Physical Exam Vital Signs: Last Vital Signs Pulse 93 04/08/23 14:04 BP 128/74 04/08/23 14:04 Pulse Ox 98 04/08/23 14:04 Oxygen Delivery Method Room Air 04/08/23 14:04 Const General: cooperative and healthy appearing Resp Effort & Inspection: normal respiratory effort Psych Appearance: grossly normal and well kempt Mental Status: mental status grossly normal Speech and movement: Normal speech and movement present Affect: normal affect Attitude: cooperative Insight: Good insight present (Psych) Judgement: Good judgement present (Psych) Assessment & Plan Assessment & Plan (1) Opioid use disorder, moderate, in early remission, dependence: Code(s): F11.21 - Opioid dependence, in remission Plan: Continue suboxone at 2mg BID Recovery support discussed. Follow up in one week. Medications: New buprenorphine-naloxone 2-0.5 mg (Suboxone) place 1 strip/tab under (each) side of tongue 1 film buccal BID 14 ea 0RF Coding Level of Care Code Est Pt Level 3 (63566) Diagnoses Opioid use disorder, moderate, in early remission, dependence F11.21
[2023-04-08 14:04] VITALS: BP 128/74; PULSE 93; O2SAT 98
== END 2023-04-08 14:25 | disposition home or self-care (01) ==
PROVIDERS: Visit Provider Nurse Practitioner Family
DX: F11.21 Opioid dependence, in remission (principal)
CPT/HCPCS: 99213

== ENCOUNTER → 2023-04-08 13:59 | Outpatient (BNVA) | payer OTHER, SELFPAY | PROVIDERS: Visit Provider Nurse Practitioner Family ==

== ENCOUNTER 2023-04-14 09:30 | Outpatient (RCR) | payer OTHER, SELFPAY ==
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
[2023-03-30 11:52] VITALS: BMI 38.3
[2023-03-30 12:53] VITALS: BP 150/74; PULSE 76; TEMP 36.8
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
[2023-04-01 06:52] LABS: Amphetamine Screen Urine Not Detected (Not Detect); Barbiturates, Urine Not Detected (Not Detect); Benzodiazepines Screen Urine Not Detected (Not Detect); Cannabinoid Screen Urine Not Detected (Not Detect); Cocaine Screen Urine Not Detected (Not Detect); Fentanyl, urine Not Detected (Not Detect); Opiate Screen Urine Not Detected (Not Detect); Phencyclidine Screen Urine Not Detected (Not Detect)
[2023-04-02 11:45] VITALS: BP 128/78; PULSE 96
--- NOTE | 2023-04-02 12:15 | PC.NURSE ---
Patient has an appointment with [facility] located at [facility], [address] [place] [address], [facility]. Go to the 4th floor [address]. Appointment on 04/02/23 at 1:00 pm for MAT.
--- NOTE | 2023-04-02 17:43 | HO.PHP ---
The client's case was reviewed and opened in treatment team.
--- NOTE | 2023-04-03 08:30 | PC.NURSE ---
Sherrill called the program and spoke with staff stating she was not coming in today as she is not feeling well as she vomited after taking the new medication Suboxone. I called Sherrill and she stated [facility] and started new medication Suboxone at 5pm yesterday as instructed. She stated she vomited one time this morning. I advised [facility]. She stated she would and has the number to call. She stated she vomited one time. Denied any safety concerns. Plans on coming to the program on Thursday. Dr Toby barry.
--- NOTE | 2023-04-06 20:48 | P.PNPSP_ITS ---
Subjective Subjective Date of Service: 04/06/23 Reason For Visit: PTSD,bipolar Interim History: Isabelle reports having a difficult weekend. She was out from the program on Thursday due to severe N/V from buprenorphine, was started at 8 mg which she notes was too high a dose. She is now taking 2 mg BID and says this has been going better. She was sad and lonely over the weekend, which was pronounced by not feeling well, and having no one around to support her or care for her. [place] very isolated. She has been in a relationship with someone she has known for 5 years. He is aware of her prior substance abuse history, but says he is unaware of her recent relapse. She has yet to inform him about recent events, says she is embarrassed by the relapse, but says she plans on letting him know at some point, just that they are still getting to know each other. She continues on the ABilify since we last spoke with plan to switch her off the Abilify and onto a different mood stabilizer given concerns for TD which she had previously developed on Abilify at 5 mg. Abilify 2 mg is not enough to control her anxiety, PTSD symptoms and mood dysregulation. She was on and off tearful throughout the entire encounter. She has had previous trials of Rexulti (which also caused some possible aekethesia, as well as Seroquel (wt gain) and Latuda intolerable. Weight gain concerning w ZYprexa, and EPS with Geodon given her propensity toward TD. She is not interested in lithium, as this medication scares her and is not open to starting this, would be less helpful than SGA for PTSD. Will start risperidone at low dose of 0.25 mg and increase to bid dosing to help with mood stabilization, agitation, anxiety. Medication Compliance: Yes Side effects from medications: Yes (as noted above) Attending Groups: Yes Mental Status Exam Mental Status Exam Narrative: Alert, oriented, in no acute distress. Casually dressed. Polite, overly apologetic. Stilted communication style but otherwise cooperative and forthcoming. Eye contact good. Speech normal, without dysarthria, latency or pressured speech. Mood anxious, affect anxious, labile. Thought process linear, coherent.. No evidence of thought disorder. Future-oriented. Thought content relevant to stressors. No paranoid or delusional content illicited. No SI or HI on inquiry. No evidence of perceptual disturbance. Cognition grossly intact. Sensorium clear. Insight fair. judgment fair/good. Diagnostics Vital Signs (24Hr): BMI result Body Mass Index 38.3 Assessment & Plan Assessment & Plan (1) Bipolar 2 disorder, major depressive episode: Status: Acute Code(s): F31.81 - Bipolar II disorder (2) Opioid use disorder, moderate, in early remission, dependence: Status: Acute Code(s): F11.21 - Opioid dependence, in remission (3) Post-traumatic stress disorder, chronic: Status: Acute Code(s): F43.12 - Post-traumatic stress disorder, chronic Plan discontinue Abilify 2 mg start risperidone 0.25 mg this evening if tolerated will start 0.25 mg BID tomorrow with plan to further titrate up to 1 mg/d in split dosing over the course of the week (0.25/0.75 vs 0.5 bid), possibly further for effects will follow up tomorrow before break continue to monitor Patient educated on: diagnosis, medication risk/benefits and substance abuse Informed Consent: understands Reason for contiued partial hosp. stay Substantial Risk for: inability to function, rapid decompensation and med/psych decompensation Certification I certify that partial hospital treatment is medically necessary due to the symptoms and problems resulting from the patient's mental illness and the failure to treat the patient at the partial hospital level of care would likely result in the patient requiring inpatient psychiatric care which could not be prevented at a less intensive level of care. Total time managing care of this patient today __30__ minutes. Discharge Plan Discharge Attending provider: Deb Luis Additional Instructions: [facility] located at [facility], [address] [place] [address]. Go to the 4th floor [address]. Appointment on 04/02/23 at 1:00 pm. Medications: New risperidone 0.25 mg tablet 0.25 - 0.5 mg PO BID Qty: 30 0RF Continued lamotrigine 200 mg tablet 200 mg PO BID 90 Days Qty: 180 0RF lamotrigine 25 mg tablet 50 mg PO BID 90 Days Qty: 360 0RF vilazodone 40 mg tablet 40 mg PO DAILY 90 Days Qty: 90 0RF nicotine 21 mg/24 hr patch 24 hour 1 patch transdermal DAILY Qty: 28 0RF nicotine 14 mg/24 hr patch 24 hour 1 patch transdermal DAILY Qty: 28 0RF melatonin 5 mg tablet 5 mg PO BEDTIME PRN (Reason: Sleep) propranolol 20 mg tablet 20 mg PO BID 90 Days Qty: 180 0RF magnesium 200 mg tablet 400 mg PO BEDTIME prazosin 1 mg capsule 3 mg PO BEDTIME lidocaine 5 % adhesive patch,medicated 1 patch topical DAILY Qty: 30 3RF Discontinued ondansetron 8 mg tablet,disintegrating 8 mg PO Q12H PRN (Reason: nausea and vomiting) Qty: 14 0RF nabumetone 500 mg tablet 500 mg PO BID Qty: 20 0RF cyclobenzaprine 10 mg tablet 10 mg PO TID PRN (Reason: muscle spasm) 30 Days Qty: 60 0RF oxycodone-acetaminophen [Percocet] 5-325 mg tablet 1 tab PO DAILY PRN (Reason: pain) Qty: 15 0RF Rx Instructions: Partial Fill upon patient request. No Action aripiprazole 2 mg tablet 2 mg PO QPM buprenorphine-naloxone [Suboxone] 8-2 mg film 1 film buccal DAILY Qty: 14 0RF naloxone [Narcan] 4 mg/actuation spray,non-aerosol 4 mg intranasal Q2M PRN (Reason: opioid overdose) Qty: 1 0RF Rx Instructions: spray 1 dose into ONE nostril; alternate nostrils w each dose until help arrives Stand Alone Forms: Patient Portal Discharge page Telehealth Telehealth Location of provider rendering services: other (private practice) Location of patient: other ([facility]) Patient Identification confirmed using: Name, : Yes Telehealth method: video Patient verbally consented to treatment: Yes Minutes spent on Phone/Video with Pt.: 30
--- NOTE | 2023-04-07 21:30 | HO.PHPPROGNO ---
Subjective Subjective Date of Service: 04/07/23 Reason For Visit: PTSD,bipolar Interim History: Patient seen for follow-up today. We had started her on risperidone 0.25 mg BID yesterday. She reports sleeping much better, and is feeling calmer, more rested, less depressed, less labile. Mood is okay, better today, anxiety is still noticeable. Denies any thoughts of giving up on life. No thoughts of harming self or others. She appears brighter and well-groomed. She notes that the medication makes her feel relaxed after taking it, not necessarily sedated and is okay to take during the day. Patient continues to do well with Suboxone 2 mg BID, is adequately dosed now, not experiencing any cravings or agitation. No further issues with N/V as she had been experiencing over the weekend when she had started on a higher dose, follow-up appointment tomorrow. She is on Klonopin 0.75 mg BID prn which she relies on regularly. We discussed trying to adjust risperidone dose to try to take in lieu of clonazepam as a way to taper down on benzodiazepine. Patient is in agreement. Will increase evening dose of risperidone to 0.5 mg, continue risperidone 0.25 mg, and may take an additional 0.25 mg risperidone PRN agitation. Medication Compliance: Yes Side effects from medications: No Attending Groups: Yes Review of Systems Acute medical concerns: No Mental Status Exam Mental Status Exam Narrative: Alert, oriented, in no acute distress. Casually dressed, grooming intact, improved. Calmer today, polite, overly apologetic, but cooperative and forthcoming. Eye contact good. Speech normal, without dysarthria, latency or pressured speech. Mood anxious, affect anxious, labile. Thought process linear, coherent. No evidence of thought disorder. Future-oriented. Thought content relevant to stressors. No paranoid or delusional content elicited. No SI or HI on inquiry. No evidence of perceptual disturbance. Cognition grossly intact. Sensorium clear. Insight fair. Judgment fair/good. Diagnostics Vital Signs (24Hr): BMI result Body Mass Index 38.3 Assessment & Plan Assessment & Plan (1) Bipolar 2 disorder, major depressive episode: Status: Acute Code(s): F31.81 - Bipolar II disorder (2) Post-traumatic stress disorder, chronic: Status: Acute Code(s): F43.12 - Post-traumatic stress disorder, chronic (3) Opioid use disorder, moderate, in early remission, dependence: Status: Acute Code(s): F11.21 - Opioid dependence, in remission Plan increase risperidone to 0.25 mg in AM and 0.5 mg in PM may take risperidone 0.25 mg as PRN agitation, sleep will try tapering dose of clonazepam to 0.5 mg from BID to QHS (using PRN risperidone in lieu of daytime risperidone continue in PHP continue to follow-up as per protocol Patient educated on: diagnosis, medication risk/benefits, substance abuse and therapeutic strategies Informed Consent: understands Reason for contiued partial hosp. stay Substantial Risk for: inability to function, rapid decompensation and med/psych decompensation Certification I certify that partial hospital treatment is medically necessary due to the symptoms and problems resulting from the patient's mental illness and the failure to treat the patient at the partial hospital level of care would likely result in the patient requiring inpatient psychiatric care which could not be prevented at a less intensive level of care. Total time managing care of this patient today __30__ minutes. Discharge Plan Discharge Attending provider: Deb Luis Additional Instructions: [facility] Care Center located at [facility], [address] [place] [address]. Go to the 4th floor [address]. Appointment on 04/02/23 at 1:00 pm. Medications: New risperidone 0.25 mg tablet 0.25 - 0.5 mg PO BID Qty: 30 0RF Continued lamotrigine 200 mg tablet 200 mg PO BID 90 Days Qty: 180 0RF lamotrigine 25 mg tablet 50 mg PO BID 90 Days Qty: 360 0RF vilazodone 40 mg tablet 40 mg PO DAILY 90 Days Qty: 90 0RF nicotine 21 mg/24 hr patch 24 hour 1 patch transdermal DAILY Qty: 28 0RF nicotine 14 mg/24 hr patch 24 hour 1 patch transdermal DAILY Qty: 28 0RF melatonin 5 mg tablet 5 mg PO BEDTIME PRN (Reason: Sleep) propranolol 20 mg tablet 20 mg PO BID 90 Days Qty: 180 0RF magnesium 200 mg tablet 400 mg PO BEDTIME prazosin 1 mg capsule 3 mg PO BEDTIME lidocaine 5 % adhesive patch,medicated 1 patch topical DAILY Qty: 30 3RF Discontinued ondansetron 8 mg tablet,disintegrating 8 mg PO Q12H PRN (Reason: nausea and vomiting) Qty: 14 0RF nabumetone 500 mg tablet 500 mg PO BID Qty: 20 0RF cyclobenzaprine 10 mg tablet 10 mg PO TID PRN (Reason: muscle spasm) 30 Days Qty: 60 0RF oxycodone-acetaminophen [Percocet] 5-325 mg tablet 1 tab PO DAILY PRN (Reason: pain) Qty: 15 0RF Rx Instructions: Partial Fill upon patient request. No Action aripiprazole 2 mg tablet 2 mg PO QPM buprenorphine-naloxone [Suboxone] 2-0.5 mg film 1 film buccal BID Qty: 14 0RF Rx Instructions: place 1 strip/tab under (each) side of tongue buprenorphine-naloxone [Suboxone] 8-2 mg film 1 film buccal DAILY Qty: 14 0RF naloxone [Narcan] 4 mg/actuation spray,non-aerosol 4 mg intranasal Q2M PRN (Reason: opioid overdose) Qty: 1 0RF Rx Instructions: spray 1 dose into ONE nostril; alternate nostrils w each dose until help arrives Stand Alone Forms: Patient Portal Discharge page
--- NOTE | 2023-04-08 10:36 | HO.PHP ---
[facility] staff met with Isabelle to follow up with her regarding the paperwork for the referral for [employer] to see if she was able to complete. Isabelle noted she didn't complete and noted she has it at home. [facility] staff explored if she would like a new one so she can place the referral. Isabelle expressed that she would and will complete it during the lunch period.
--- NOTE | 2023-04-13 15:20 | HO.PHP ---
[facility] contacted and a message was left regarding referral for outpatient med provider services. Awaiting a return call.
--- NOTE | 2023-04-13 20:32 | P.PNPSP_ITS ---
Subjective Subjective Date of Service: 04/13/23 Reason For Visit: PTSD,bipolar Interim History: ?Doing pretty good?. Patient seen for follow-up today. No acute issues or concerns. Patient reports experiencing some nausea and dry mouth. Nausea is still occurring soon after she takes Suboxone. Was much worse after taking 8 mg (Fri), with forceful vomitting, but even 2 mg is somewhat problematic. She held off taking the risperidone for an hour or 2 afterward to clarify the cause of naus ea. She feels her medications are helping: Suboxone has cut down on cravings, Risperdal has lead to improvements with her mood and anxiety. Anxiety persists in regards to the adverse effects (nausea, dry mouth) but otherwise she is managing. Sleep disrupted due to the nausea, but when nausea is not present she sleeps well. Depression is much better, denies any hopelessness or SI. No lability or tearfulness. Denies any urges or cravings for alcohol. Denies any AVH or other symptoms of psychosis or herson. Requesting refill on clonazepam. I encourage her to start utilizing PRN risperidone in lieu of clonazepam. Mental Status Exam Mental Status Exam Narrative: Alert, oriented, in no acute distress. Casually dressed, groomed. Calm, polite, cooperative and forthcoming. Intention tremor, bilat. R>L (R dominant). Eye contact good. Speech normal, without dysarthria, latency or pressured speech. Mood better euthymic, affect less anxious, brighter, no tearfulness or lability. No evidence of thought disorder. Thought content relevant to stressors. Future-oriented. No SI or HI on inquiry. No paranoid or delusional content elicited. No evidence of perceptual disturbance. Cognition grossly intact. Sensorium clear. Insight fair/good. Judgment good. Diagnostics Vital Signs (24Hr): BMI result Body Mass Index 38.3 Assessment & Plan Assessment & Plan (1) Post-traumatic stress disorder, chronic: Status: Acute Code(s): F43.12 - Post-traumatic stress disorder, chronic (2) Bipolar 2 disorder, major depressive episode: Status: Acute Code(s): F31.81 - Bipolar II disorder (3) Opioid use disorder, moderate, in early remission, dependence: Status: Acute Code(s): F11.21 - Opioid dependence, in remission Plan I suggest taking 1/2 film of buprenorphine tonight (and then adding on 1/4 film if needed) to see if 1 mg or 1.5 mg is more appropriate dose (rather than 2 mg at a time). If tolerated, repeat lower dose in AM, then patient can follow up with [facility] and report findings. (1 mg BID vs 1.5 mg BID vs 1 mg TID etc) continue risperidone at 0.25 mg qAM and may increase night to 0.5 mg qHS, continue 0.25 mg PRN Anticipate discharge tomorrow Patient educated on: diagnosis, medication risk/benefits and substance abuse Reason for contiued partial hosp. stay Substantial Risk for: med/psych decompensation Certification I certify that partial hospital treatment is medically necessary due to the symptoms and problems resulting from the patient's mental illness and the failure to treat the patient at the partial hospital level of care would likely result in the patient requiring inpatient psychiatric care which could not be prevented at a less intensive level of care. Total time managing care of this patient today __30__ minutes. Discharge Plan Discharge Attending provider: Deb Luis Additional Instructions: [facility] Care Center located at [facility], [address] [place] [address]. Go to the 4th floor [address]. Appointment on 04/02/23 at 1:00 pm. Medications: New clonazepam 0.5 mg tablet 0.5 mg PO DAILY PRN (Reason: anxiety) Qty: 14 0RF nicotine [Nicoderm CQ] 7 mg/24 hr patch 24 hour 1 patch transdermal Q24H Qty: 14 0RF Rx Instructions: apply patch to arm daily in AM; remove patch daily in evening prazosin 2 mg capsule 2 mg PO BEDTIME Qty: 14 0RF prazosin 1 mg capsule 1 mg PO BID Qty: 28 0RF Continued lamotrigine 200 mg tablet 200 mg PO BID 90 Days Qty: 180 0RF lamotrigine 25 mg tablet 50 mg PO BID 90 Days Qty: 360 0RF vilazodone 40 mg tablet 40 mg PO DAILY 90 Days Qty: 90 0RF nicotine 21 mg/24 hr patch 24 hour 1 patch transdermal DAILY Qty: 28 0RF nicotine 14 mg/24 hr patch 24 hour 1 patch transdermal DAILY Qty: 28 0RF risperidone 0.25 mg tablet 0.25 - 0.5 mg PO BID Qty: 60 0RF melatonin 5 mg tablet 5 mg PO BEDTIME PRN (Reason: Sleep) magnesium 200 mg tablet 400 mg PO BEDTIME lidocaine 5 % adhesive patch,medicated 1 patch topical DAILY Qty: 30 3RF naloxone [Narcan] 4 mg/actuation spray,non-aerosol 4 mg intranasal Q2M PRN (Reason: opioid overdose) Qty: 1 0RF Rx Instructions: spray 1 dose into ONE nostril; alternate nostrils w each dose until help arrives Discontinued ondansetron 8 mg tablet,disintegrating 8 mg PO Q12H PRN (Reason: nausea and vomiting) Qty: 14 0RF nabumetone 500 mg tablet 500 mg PO BID Qty: 20 0RF cyclobenzaprine 10 mg tablet 10 mg PO TID PRN (Reason: muscle spasm) 30 Days Qty: 60 0RF oxycodone-acetaminophen [Percocet] 5-325 mg tablet 1 tab PO DAILY PRN (Reason: pain) Qty: 15 0RF Rx Instructions: Partial Fill upon patient request. aripiprazole 2 mg tablet 2 mg PO QPM propranolol 20 mg tablet 20 mg PO BID 90 Days Qty: 180 0RF prazosin 1 mg capsule 3 mg PO BEDTIME buprenorphine-naloxone [Suboxone] 8-2 mg film 1 film buccal DAILY Qty: 14 0RF No Action buprenorphine-naloxone [Suboxone] 2-0.5 mg film 1 film buccal BID Qty: 14 0RF Rx Instructions: place 1 strip/tab under (each) side of tongue Stand Alone Forms: Patient Portal Discharge page Patient Education: Bipolar Disorder (DC), Opioid Use Disorder (DC) Telehealth Telehealth Location of provider rendering services: other (private office) Location of patient: other ([facility]) Patient Identification confirmed using: Name, : Yes Telehealth method: video Patient verbally consented to treatment: Yes
--- NOTE | 2023-04-14 15:54 | HO.PHP ---
[facility] staff member assisted Isabelle in placing a referral for Med Management through [facility], in which she was provided with her next appointment time of April 29, 2023 at 3 PM. Isabelle was grateful for the support and being able to access a med provider.
--- NOTE | 2023-04-14 20:17 | HO.PHPPROGNO ---
Subjective Subjective Date of Service: 04/14/23 Reason For Visit: PTSD,bipolar Interim History: Patient seen for follow-up today. We had discussed yesterday about taking on ly 1/2 film of buprenorphine to see if the medication was causing her nausea/vomitting. She notes in fact she did not even need to bump up an additional 1/4, as 1/2 was adequate. This morning she continues on 1/2 film and feels this is the cirrect dose. No further issues with N/V. She has an appointment with [facility] today and is pleased this got sorted out ahead of time so she can discuss this with the clinician about remaining at Suboxone 2mg /1 mg BID. She had experienced some palpitations on the 21 mg/24 hr patch. She has not used it since then. She reports smoking at almost 1 ppd, may be more like 2 - 1 ppd and is still interested in quitting. SHe is agreeable to starting with the 14 mg/24 hour qd patch for 2 weeks, and then lowering to 7 mg/24 hr patches qd. She reports her SI has gotten a lot better. She currently denies any thoughts, and when they do occur they are transient, passive thoughts, vague with no intention, and has been utilizing skills she has learned in groups. She feels she is getting better at handling things . Since the nausea resolved, her anxiety is also a lot better. Sleeping has improved. She is between 1-2 mg of prazosin at night, and 1 mg prazosin during the day and will continue there. She is okay with continuing at 2 mg as this has been tolerated and we will refill scripts for 1 mg and 2 mg. She didnt take prazosin this AM because she was sorting out the nausea, however she can feel the difference and plans to return to taking tomorrow. She has found the addition of risperidone very helpful. She feels it has stabilized her mood and treated anxious and obsessional thoughts and overall feel good. Sleep, appetite are intact. Med compliant. Denies any AE. No acute issues or concerns at this time. Medication Compliance: Yes Side effects from medications: No Attending Groups: Yes Review of Systems Acute medical concerns: No Medical Review of Systems: changed Review of Systems: N/V resolved Mental Status Exam Mental Status Exam Narrative: Alert, oriented, in no acute distress. Casually dressed, groomed. Calm, polite, cooperative and forthcoming. Eye contact good. Speech normal, without dysarthria, latency or pressured speech. Mood less anxious, euthymic, affect full range, reactive, mood congruent, no tearfulness or lability. No evidence of thought disorder. Thought content relevant to stressors. Future-oriented. No SI or HI on inquiry. No paranoid or delusional content elicited. No evidence of perceptual disturbance. Cognition grossly intact. Sensorium clear. Insight fair/good. Judgment good. Diagnostics Vital Signs (24Hr): BMI result Body Mass Index 38.3 Assessment & Plan Assessment & Plan (1) Post-traumatic stress disorder, chronic: Status: Acute Code(s): F43.12 - Post-traumatic stress disorder, chronic (2) Bipolar 2 disorder, major depressive episode: Status: Acute Code(s): F31.81 - Bipolar II disorder (3) Opioid use disorder, moderate, in early remission, dependence: Status: Acute Code(s): F11.21 - Opioid dependence, in remission Plan Discharge from [facility] continue on current medication regime pending appointments as per dispo planning Therapy appointment with Ghislaine Weber on 04/17 at 4pm Psych provider appointment with Ruma Lantigua at [facility] on 04/29 at 3pm I will send 14 days of medication refills to pharmacy Patient educated on: diagnosis, medication risk/benefits and substance abuse Informed Consent: understands Reason for contiued partial hosp. stay Substantial Risk for: stable for discharge Certification I certify that partial hospital treatment is medically necessary due to the symptoms and problems resulting from the patient's mental illness and the failure to treat the patient at the partial hospital level of care would likely result in the patient requiring inpatient psychiatric care which could not be prevented at a less intensive level of care. Total time managing care of this patient today __30__ minutes. Discharge Plan Discharge Attending provider: Deb Luis Additional Instructions: [facility] located at [facility], [facility], [address] [place] [address], [facility]. Go to the 4th floor [address]. Appointment on 04/02/23 at 1:00 pm. Medications: New clonazepam 0.5 mg tablet 0.5 mg PO DAILY PRN (Reason: anxiety) Qty: 14 0RF nicotine [Nicoderm CQ] 7 mg/24 hr patch 24 hour 1 patch transdermal Q24H Qty: 14 0RF Rx Instructions: apply patch to arm daily in AM; remove patch daily in evening prazosin 2 mg capsule 2 mg PO BEDTIME Qty: 14 0RF prazosin 1 mg capsule 1 mg PO BID Qty: 28 0RF Continued lamotrigine 200 mg tablet 200 mg PO BID 90 Days Qty: 180 0RF lamotrigine 25 mg tablet 50 mg PO BID 90 Days Qty: 360 0RF vilazodone 40 mg tablet 40 mg PO DAILY 90 Days Qty: 90 0RF nicotine 21 mg/24 hr patch 24 hour 1 patch transdermal DAILY Qty: 28 0RF nicotine 14 mg/24 hr patch 24 hour 1 patch transdermal DAILY Qty: 28 0RF risperidone 0.25 mg tablet 0.25 - 0.5 mg PO BID Qty: 60 0RF melatonin 5 mg tablet 5 mg PO BEDTIME PRN (Reason: Sleep) magnesium 200 mg tablet 400 mg PO BEDTIME lidocaine 5 % adhesive patch,medicated 1 patch topical DAILY Qty: 30 3RF naloxone [Narcan] 4 mg/actuation spray,non-aerosol 4 mg intranasal Q2M PRN (Reason: opioid overdose) Qty: 1 0RF Rx Instructions: spray 1 dose into ONE nostril; alternate nostrils w each dose until help arrives Discontinued ondansetron 8 mg tablet,disintegrating 8 mg PO Q12H PRN (Reason: nausea and vomiting) Qty: 14 0RF nabumetone 500 mg tablet 500 mg PO BID Qty: 20 0RF cyclobenzaprine 10 mg tablet 10 mg PO TID PRN (Reason: muscle spasm) 30 Days Qty: 60 0RF oxycodone-acetaminophen [Percocet] 5-325 mg tablet 1 tab PO DAILY PRN (Reason: pain) Qty: 15 0RF Rx Instructions: Partial Fill upon patient request. aripiprazole 2 mg tablet 2 mg PO QPM propranolol 20 mg tablet 20 mg PO BID 90 Days Qty: 180 0RF prazosin 1 mg capsule 3 mg PO BEDTIME buprenorphine-naloxone [Suboxone] 8-2 mg film 1 film buccal DAILY Qty: 14 0RF No Action buprenorphine-naloxone [Suboxone] 2-0.5 mg film 1 film buccal BID Qty: 14 0RF Rx Instructions: place 1 strip/tab under (each) side of tongue ondansetron 4 mg tablet,disintegrating 4 mg PO Q8H PRN (Reason: nausea and vomiting) Qty: 30 0RF Stand Alone Forms: Patient Portal Discharge page Patient Education: Bipolar Disorder (DC), Opioid Use Disorder (DC)
== END 2023-04-14 23:59 | disposition home or self-care (01) ==
LOC: HO.PHPA 09:30
PROVIDERS: Visit Provider Psychiatry & Neurology Psychiatry
DX: F31.81 Bipolar II disorder (principal); F43.12 Post-traumatic stress disorder, chronic; F11.20 Opioid dependence, uncomplicated; Z79.899 Other long term (current) drug therapy
CPT/HCPCS: 80307; 90791; 90853

== ENCOUNTER 2023-04-14 15:01 | Outpatient (AMB) | payer OTHER, MEDICARE, SELFPAY ==
--- NOTE | 2023-04-14 15:05 | A.OFFVIS_ITS ---
Intake Vital Signs 04/14/23 15:09 BP 124/80 Blood Pressure Location Lt radial Position Sitting Pulse 84 Pulse Source Pulse Oximeter Pulse Oximetry (%) 97 Oxygen Delivery Method Room Air Intake Visit Reasons: mat visit Intake Note: the patient presents for a mat visit Backfiller Required: No Allergies buspirone [From BuSpar] Allergy (Severe, Verified 04/14/23 15:11) Seizure gabapentin Allergy (Unknown, Verified 04/14/23 15:11) memory loss hydrocodone [Vicodin] Allergy (Unknown, Verified 04/14/23 15:11) Anaphylaxis lactose [LACTOSE] Allergy (Unknown, Verified 04/14/23 15:11) unknown tramadol Adverse Reaction (Intermediate, Verified 04/14/23 15:11) hallucinations Do you need a note to return to daycare/school/sports/work: No HPI mat visit HPI Details Pt presents for treatment and follow up for OUD She reports that the 2mg suboxone has been making her feel nauseated, so she has been taking 1/2 a film She reports this has been working well for her in regards to side effects- but she is experiencing cravings mid day. Dose adjusted to 1 mg qid and will re-assess on next visit. Denies any other concerns, today was last day of partial and she goes back to work tomorrow. [facility] Medical History (Updated 04/02/23 @ 09:43 by Sara Rand RN) History of hypercholesterolemia History of nephrolithiasis Hypertension Bipolar disorder control counseling At risk for diabetes mellitus Obesity Overflow stress urinary incontinence in female Posttraumatic stress disorder Seizure disorder Obsessive compulsive disorder Cyst near tailbone Surgical History History of surgical removal of pilonidal cyst History of lithotripsy Family History Father Chronic mental illness PCK (polycystic kidney disease) Hypothyroidism Post traumatic stress disorder (PTSD) Substance use disorder Mother Hyperthyroidism Post traumatic stress disorder (PTSD) Breast CA, Onset Age: 40 Other Mental health disorder Social History Household Members: Other Household Members Other:: Her dog Housing: Apartment Are you a primary patient care provider to a significant other at home: No Do you presently have visiting nurse or other home services: No Alcohol intake: never Patient Tobacco Use Status: Current everyday Tobacco user Tobacco use type: Cigarette Cigarette Packs Per Day: 1 Cigarettes Per Day: 20 Years Smoked: 15 e-Cigarette/Vaping Use: Never Used Second Hand Smoke Exposure: Yes service: No Current occupational status: employed Cognitive needs: No Hearing needs: No Vision needs: No Female Reproductive History Menstrual Age of Menarche: 11 Review of Systems Const Reports as per HPI Physical Exam Vital Signs: Last Vital Signs Pulse 84 04/14/23 15:09 BP 124/80 04/14/23 15:09 Pulse Ox 97 04/14/23 15:09 Oxygen Delivery Method Room Air 04/14/23 15:09 Const General: cooperative, healthy appearing and no acute distress Resp Effort & Inspection: normal respiratory effort Skin General skin exam: no rashes or lesions noted Psych Appearance: grossly normal Mental Status: mental status grossly normal Speech and movement: Normal speech and movement present Thought content: Normal thought content present Insight: Good insight present (Psych) Judgement: Good judgement present (Psych) Assessment & Plan Assessment & Plan (1) Opioid use disorder, moderate, in early remission, dependence: Code(s): F11.21 - Opioid dependence, in remission Plan: Dose adjusted to 1mg qid with the intention to eliminate cravings and provide consistent pain relief. Will reassess next visit. Follow up in 1 week Medications: Refilled buprenorphine-naloxone 2-0.5 mg (Suboxone) place 1 strip/tab under (each) side of tongue 1 film buccal BID 14 ea 0RF Coding Level of Care Code Est Pt Level 3 (69899) Diagnoses Opioid use disorder, moderate, in early remission, dependence F11.21
[2023-04-14 15:09] VITALS: BP 124/80; PULSE 84; O2SAT 97
== END 2023-04-14 16:08 | disposition home or self-care (01) ==
PROVIDERS: Visit Provider Nurse Practitioner Family
DX: F11.21 Opioid dependence, in remission (principal)
CPT/HCPCS: 99213

== ENCOUNTER → 2023-04-14 15:01 | Outpatient (BNVA) | payer OTHER, MEDICARE, SELFPAY | PROVIDERS: Visit Provider Nurse Practitioner Family ==

== ENCOUNTER 2023-04-21 15:41 | Outpatient (AMB) | payer OTHER, MEDICARE, SELFPAY ==
--- NOTE | 2023-04-21 15:42 | MHC.AM.SUB ---
Intake Vital Signs 04/21/23 15:46 BP 126/72 Blood Pressure Location Lt radial Position Sitting Pulse 89 Pulse Source Pulse Oximeter Pulse Oximetry (%) 97 Oxygen Delivery Method Room Air Intake Visit Reasons: mat visit Intake Note: the patient presents for a mar visit Global Mobility Specialist Required: No Allergies buspirone [From BuSpar] Allergy (Severe, Verified 04/21/23 15:47) Seizure gabapentin Allergy (Unknown, Verified 04/21/23 15:47) memory loss hydrocodone [Vicodin] Allergy (Unknown, Verified 04/21/23 15:47) Anaphylaxis lactose [LACTOSE] Allergy (Unknown, Verified 04/21/23 15:47) unknown tramadol Adverse Reaction (Intermediate, Verified 04/21/23 15:47) hallucinations Do you need a note to return to daycare/school/sports/work: No HPI mat visit HPI Details Patient presents for follow up She has returned to work this week and says she got a warm welcome back Has been taking her films at 1mg qid Reports some residual nausea when taking her films She reports no cravings and says the suboxone has been helpful for her pain [facility] Medical History (Updated 04/02/23 @ 09:43 by Sara Rand RN) History of hypercholesterolemia History of nephrolithiasis Hypertension Bipolar disorder control counseling At risk for diabetes mellitus Obesity Overflow stress urinary incontinence in female Posttraumatic stress disorder Seizure disorder Obsessive compulsive disorder Cyst near tailbone Surgical History History of surgical removal of pilonidal cyst History of lithotripsy Family History Father Chronic mental illness PCK (polycystic kidney disease) Hypothyroidism Post traumatic stress disorder (PTSD) Substance use disorder Mother Hyperthyroidism Post traumatic stress disorder (PTSD) Breast CA, Onset Age: 40 Other Mental health disorder Social History Household Members: Other Household Members Other:: Her dog Housing: Apartment Are you a primary clinical manager home care to a significant other at home: No Do you presently have visiting nurse or other home services: No Alcohol intake: never Patient Tobacco Use Status: Current everyday Tobacco user Tobacco use type: Cigarette Cigarette Packs Per Day: 1 Cigarettes Per Day: 20 Years Smoked: 15 e-Cigarette/Vaping Use: Never Used Second Hand Smoke Exposure: Yes service: No Current occupational status: employed Cognitive needs: No Hearing needs: No Vision needs: No Female Reproductive History Menstrual Age of Menarche: 11 Review of Systems Const Reports as per HPI Physical Exam Vital Signs: Last Vital Signs Pulse 89 04/21/23 15:46 BP 126/72 04/21/23 15:46 Pulse Ox 97 04/21/23 15:46 Oxygen Delivery Method Room Air 04/21/23 15:46 Const General: cooperative and healthy appearing Resp Effort & Inspection: normal respiratory effort Skin General skin exam: no rashes or lesions noted Psych Appearance: grossly normal Mental Status: mental status grossly normal Affect: normal affect Attitude: cooperative Assessment & Plan Assessment & Plan (1) Opioid use disorder, moderate, in early remission, dependence: Code(s): F11.21 - Opioid dependence, in remission Plan: Continue suboxone at current dose RX for zofran sent to pharmacy, advised pt to try taking suboxone after she's eaten Follow up 2 weeks Medications: New ondansetron 4 mg PO Q8H PRN 30 tabs 0RF nausea and vomiting Refilled buprenorphine-naloxone 2-0.5 mg (Suboxone) place 1 strip/tab under (each) side of tongue 1 film buccal BID 14 ea 0RF Coding Level of Care Code Est Pt Level 3 (69492) Diagnoses Opioid use disorder, moderate, in early remission, dependence F11.21
[2023-04-21 15:46] VITALS: BP 126/72; PULSE 89; O2SAT 97
== END 2023-04-21 15:59 | disposition home or self-care (01) ==
PROVIDERS: Visit Provider Nurse Practitioner Family
DX: F11.21 Opioid dependence, in remission (principal)
CPT/HCPCS: 99213

== ENCOUNTER → 2023-04-21 15:41 | Outpatient (BNVA) | payer OTHER, MEDICARE, SELFPAY | PROVIDERS: Visit Provider Nurse Practitioner Family ==

== ENCOUNTER 2023-04-28 16:06 | Outpatient (AMB) | payer OTHER, MEDICARE, SELFPAY ==
--- NOTE | 2023-04-28 16:09 | MHC.AM.SUB ---
Intake Vital Signs 04/28/23 16:13 BP 132/84 Blood Pressure Location Lt radial Position Sitting Pulse 80 Pulse Source Pulse Oximeter Pulse Oximetry (%) 96 Oxygen Delivery Method Room Air Intake Visit Reasons: mat visit Intake Note: The patient presents for am at visit Automatic Coin Machine Mechanic Required: No Allergies buspirone [From BuSpar] Allergy (Severe, Verified 04/28/23 16:14) Seizure gabapentin Allergy (Unknown, Verified 04/28/23 16:14) memory loss hydrocodone [Vicodin] Allergy (Unknown, Verified 04/28/23 16:14) Anaphylaxis lactose [LACTOSE] Allergy (Unknown, Verified 04/28/23 16:14) unknown tramadol Adverse Reaction (Intermediate, Verified 04/28/23 16:14) hallucinations Do you need a note to return to daycare/school/sports/work: No HPI mat visit HPI Details Pt presents for MAT visit Reports she is especially tired from work today She feels very good about her dose at this time, feels as though it has been continuing to do well to keep the cravings away She has still been feeling intermittent nausea that she attributes to her risperdone Reports work is going well, happy she can now leave her dog home alone without her destroying belongings Would like to continue being seen weekly for now for continued recovery support [facility] Medical History (Updated 04/02/23 @ 09:43 by Sara Rand RN) History of hypercholesterolemia History of nephrolithiasis Hypertension Bipolar disorder control counseling At risk for diabetes mellitus Obesity Overflow stress urinary incontinence in female Posttraumatic stress disorder Seizure disorder Obsessive compulsive disorder Cyst near tailbone Surgical History History of surgical removal of pilonidal cyst History of lithotripsy Family History Father Chronic mental illness PCK (polycystic kidney disease) Hypothyroidism Post traumatic stress disorder (PTSD) Substance use disorder Mother Hyperthyroidism Post traumatic stress disorder (PTSD) Breast CA, Onset Age: 40 Other Mental health disorder Social History Household Members: Other Household Members Other:: Her dog Housing: Apartment Are you a primary care team coordinator scheduler to a significant other at home: No Do you presently have visiting nurse or other home services: No Alcohol intake: never Patient Tobacco Use Status: Current everyday Tobacco user Tobacco use type: Cigarette Cigarette Packs Per Day: 1 Cigarettes Per Day: 20 Years Smoked: 15 e-Cigarette/Vaping Use: Never Used Second Hand Smoke Exposure: Yes service: No Current occupational status: employed Cognitive needs: No Hearing needs: No Vision needs: No Female Reproductive History Menstrual Age of Menarche: 11 Review of Systems Const Reports as per HPI GI Denies abdominal pain, Denies constipation, Denies diarrhea and Reports nausea Physical Exam Vital Signs: Last Vital Signs Pulse 80 04/28/23 16:13 BP 132/84 04/28/23 16:13 Pulse Ox 96 04/28/23 16:13 Oxygen Delivery Method Room Air 04/28/23 16:13 Const General: cooperative and no acute distress Resp Effort & Inspection: normal respiratory effort Skin General skin exam: no rashes or lesions noted Psych Appearance: grossly normal Mental Status: mental status grossly normal Speech and movement: Normal speech and movement present Affect: normal affect Attitude: cooperative Assessment & Plan Assessment & Plan (1) Opioid use disorder, moderate, in early remission, dependence: Code(s): F11.21 - Opioid dependence, in remission Plan: -Continue suboxone current dose -Encouraged pt to keep a journal to track her nausea -Reminded her to call [facility] with questions/concerns, or should she need to be seen sooner than scheduled Medications: Refilled buprenorphine-naloxone 2-0.5 mg (Suboxone) place 1 strip/tab under (each) side of tongue 1 film buccal BID 14 ea 0RF Coding Level of Care Code Est Pt Level 3 (07319) Diagnoses Opioid use disorder, moderate, in early remission, dependence F11.21
[2023-04-28 16:13] VITALS: BP 132/84; PULSE 80; O2SAT 96
== END 2023-04-28 16:37 | disposition home or self-care (01) ==
PROVIDERS: Visit Provider Nurse Practitioner Family
DX: F11.21 Opioid dependence, in remission (principal)
CPT/HCPCS: 99213

== ENCOUNTER → 2023-04-28 16:06 | Outpatient (BNVA) | payer OTHER, MEDICARE, SELFPAY | PROVIDERS: Visit Provider Nurse Practitioner Family ==

== ENCOUNTER 2023-05-05 16:20 | Outpatient (AMB) | payer OTHER, MEDICARE, SELFPAY ==
--- NOTE | 2023-05-05 16:22 | A.OFFVIS_ITS ---
Intake Vital Signs 05/05/23 16:27 BP 128/76 Blood Pressure Location Lt radial Position Sitting Pulse 90 Pulse Source Pulse Oximeter Pulse Oximetry (%) 96 Oxygen Delivery Method Room Air Intake Visit Reasons: mat visit Intake Note: the patient presents for a mat visit Home Builder Required: No Allergies buspirone [From BuSpar] Allergy (Severe, Verified 05/05/23 16:28) Seizure gabapentin Allergy (Unknown, Verified 05/05/23 16:28) memory loss hydrocodone [Vicodin] Allergy (Unknown, Verified 05/05/23 16:28) Anaphylaxis lactose [LACTOSE] Allergy (Unknown, Verified 05/05/23 16:28) unknown tramadol Adverse Reaction (Intermediate, Verified 05/05/23 16:28) hallucinations Do you need a note to return to daycare/school/sports/work: No HPI mat visit HPI Details Patient presents today for OUD treatment and followup She currently is taking suboxone 1mg qid and is finding this effective, reports she has had no cravings. She reports she has started eating something 15 mins prior to taking her suboxone and has found this has significantly decreased her nausea. She is pleased about this. She reports recovery is going well, has no concerns related to recovery or side effects. [facility] Medical History (Updated 04/02/23 @ 09:43 by Sara Rand RN) History of hypercholesterolemia History of nephrolithiasis Hypertension Bipolar disorder control counseling At risk for diabetes mellitus Obesity Overflow stress urinary incontinence in female Posttraumatic stress disorder Seizure disorder Obsessive compulsive disorder Cyst near tailbone Surgical History History of surgical removal of pilonidal cyst History of lithotripsy Family History Father Chronic mental illness PCK (polycystic kidney disease) Hypothyroidism Post traumatic stress disorder (PTSD) Substance use disorder Mother Hyperthyroidism Post traumatic stress disorder (PTSD) Breast CA, Onset Age: 40 Other Mental health disorder Social History Household Members: Other Household Members Other:: Her dog Housing: Apartment Are you a primary palliative care physician to a significant other at home: No Do you presently have visiting nurse or other home services: No Alcohol intake: never Patient Tobacco Use Status: Current everyday Tobacco user Tobacco use type: Cigarette Cigarette Packs Per Day: 1 Cigarettes Per Day: 20 Years Smoked: 15 e-Cigarette/Vaping Use: Never Used Second Hand Smoke Exposure: Yes service: No Current occupational status: employed Cognitive needs: No Hearing needs: No Vision needs: No Female Reproductive History Menstrual Age of Menarche: 11 Review of Systems Const Reports as per HPI GI Denies nausea Physical Exam Vital Signs: Last Vital Signs Pulse 90 05/05/23 16:27 BP 128/76 05/05/23 16:27 Pulse Ox 96 05/05/23 16:27 Oxygen Delivery Method Room Air 05/05/23 16:27 Const General: cooperative and healthy appearing Resp Effort & Inspection: normal respiratory effort and able to speak in complete sentences Skin General skin exam: no rashes or lesions noted Psych Appearance: grossly normal Speech and movement: Normal speech and movement present Affect: normal affect Attitude: cooperative Assessment & Plan Assessment & Plan (1) Opioid use disorder, moderate, in early remission, dependence: Code(s): F11.21 - Opioid dependence, in remission Plan: -Continue suboxone at current dose -Follow up 2 weeks Medications: Refilled buprenorphine-naloxone 2-0.5 mg (Suboxone) place 1 strip/tab under (each) side of tongue 1 film buccal BID 14 ea 0RF Coding Level of Care Code Est Pt Level 3 (64428) Diagnoses Opioid use disorder, moderate, in early remission, dependence F11.21
[2023-05-05 16:27] VITALS: BP 128/76; PULSE 90; O2SAT 96
== END 2023-05-05 16:44 | disposition home or self-care (01) ==
PROVIDERS: Visit Provider Nurse Practitioner Family
DX: F11.21 Opioid dependence, in remission (principal)
CPT/HCPCS: 99213

== ENCOUNTER → 2023-05-05 16:20 | Outpatient (BNVA) | payer OTHER, MEDICARE, SELFPAY | PROVIDERS: Visit Provider Nurse Practitioner Family ==

== ENCOUNTER 2023-05-19 15:59 | Outpatient (AMB) | payer OTHER, MEDICARE, SELFPAY ==
--- NOTE | 2023-05-19 16:01 | A.OFFVISCC_ITS ---
Intake Vital Signs 05/19/23 16:05 BP 150/80 H Blood Pressure Location Lt brachial Position Sitting Respiration 19 Pulse 73 Pulse Source Pulse Oximeter Pulse Oximetry (%) 95 Oxygen Delivery Method Room Air Intake Visit Reasons: mat visit Allergies buspirone [From BuSpar] Allergy (Severe, Verified 05/05/23 16:28) Seizure gabapentin Allergy (Unknown, Verified 05/05/23 16:28) memory loss hydrocodone [Vicodin] Allergy (Unknown, Verified 05/05/23 16:28) Anaphylaxis lactose [LACTOSE] Allergy (Unknown, Verified 05/05/23 16:28) unknown tramadol Adverse Reaction (Intermediate, Verified 05/05/23 16:28) hallucinations HPI mat visit HPI Details Patient presents for OUD treatment and follow up She reports last few weeks have gone well She was unable to take her morning dose this morning before work-states she did not have time, she reports that 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 She states she started to feel cravings to use, but took her suboxone and felt better. T/w encouraged her to try and keep to a regular schedule to avoid future occurrences. She denies concerns related to side effects. [facility] Medical History (Updated 04/02/23 @ 09:43 by Sara Rand RN) History of hypercholesterolemia History of nephrolithiasis Hypertension Bipolar disorder control counseling At risk for diabetes mellitus Obesity Overflow stress urinary incontinence in female Posttraumatic stress disorder Seizure disorder Obsessive compulsive disorder Cyst near tailbone Surgical History History of surgical removal of pilonidal cyst History of lithotripsy Family History Father Chronic mental illness PCK (polycystic kidney disease) Hypothyroidism Post traumatic stress disorder (PTSD) Substance use disorder Mother Hyperthyroidism Post traumatic stress disorder (PTSD) Breast CA, Onset Age: 40 Other Mental health disorder Social History Household Members: Other Household Members Other:: Her dog Housing: Apartment Are you a primary day care supervisor to a significant other at home: No Do you presently have visiting nurse or other home services: No Alcohol intake: never Patient Tobacco Use Status: Current everyday Tobacco user Tobacco use type: Cigarette Cigarette Packs Per Day: 1 Cigarettes Per Day: 20 Years Smoked: 15 e-Cigarette/Vaping Use: Never Used Second Hand Smoke Exposure: Yes service: No Current occupational status: employed Cognitive needs: No Hearing needs: No Vision needs: No Female Reproductive History Menstrual Age of Menarche: 11 Review of Systems Const Reports as per HPI and Reports no additional complaints Physical Exam Vital Signs: Last Vital Signs Pulse 73 05/19/23 16:05 Resp 19 05/19/23 16:05 BP 150/80 H 05/19/23 16:05 Pulse Ox 95 05/19/23 16:05 Oxygen Delivery Method Room Air 05/19/23 16:05 Const General: cooperative, comfortable and no acute distress Resp Effort & Inspection: normal respiratory effort Psych Appearance: grossly normal and well kempt Mental Status: mental status grossly normal Speech and movement: Normal speech and movement present Assessment & Plan Assessment & Plan (1) Opioid use disorder, moderate, in early remission, dependence: Code(s): F11.21 - Opioid dependence, in remission Plan: -Continue suboxone at current dose -Harm reduction discussion -Follow up 2 weeks Medications: Refilled buprenorphine-naloxone 2-0.5 mg (Suboxone) place 1 strip/tab under (each) side of tongue 1 film buccal BID 30 ea 0RF Coding Level of Care Code Est Pt Level 3 (32487) Diagnoses Opioid use disorder, moderate, in early remission, dependence F11.21
[2023-05-19 16:05] VITALS: BP 150/80; PULSE 73; RESP 19; O2SAT 95
== END 2023-05-19 16:21 | disposition home or self-care (01) ==
PROVIDERS: Visit Provider Nurse Practitioner Family
DX: F11.21 Opioid dependence, in remission (principal)
CPT/HCPCS: 99213

== ENCOUNTER → 2023-05-19 15:59 | Outpatient (BNVA) | payer OTHER, MEDICARE, SELFPAY | PROVIDERS: Visit Provider Nurse Practitioner Family ==

== ENCOUNTER 2023-07-07 14:45 | Outpatient (AMB) | payer OTHER, MEDICARE, SELFPAY ==
[2023-07-07 15:15] VITALS: BP 134/82; PULSE 78; O2SAT 99
--- NOTE | 2023-07-07 15:15 | A.OFFVISCC_ITS ---
Intake Vital Signs 07/07/23 15:15 BP 134/82 Blood Pressure Location Lt radial Position Sitting Pulse 78 Pulse Source Pulse Oximeter Pulse Oximetry (%) 99 Oxygen Delivery Method Room Air Intake Visit Reasons: MAT Visit Intake Note: the patient presents for a mat visit Wrapper Sheeter Required: No Allergies buspirone [From BuSpar] Allergy (Severe, Verified 07/07/23 15:16) Seizure gabapentin Allergy (Unknown, Verified 07/07/23 15:16) memory loss hydrocodone [Vicodin] Allergy (Unknown, Verified 07/07/23 15:16) Anaphylaxis lactose [LACTOSE] Allergy (Unknown, Verified 07/07/23 15:16) unknown tramadol Adverse Reaction (Intermediate, Verified 07/07/23 15:16) hallucinations Do you need a note to return to daycare/school/sports/work: No HPI MAT Visit HPI Details Patient presents for MAT visit She has missed the last few appointments Reports she was in a depressive state due to being overwhelmed with work She expressed she is also experiencing some challenges in her dating life She reports she has been tapering off clonazepam, PCP no longer comfortable continuing it. She had an appointment a few weeks ago with a psych prescriber that she felt mistreated by. She reports that she was made to feel like a criminal and left the appointment in tears She reports she has not relapsed, and has been taking her suboxone as prescribed Denies cravings or thoughts of using PFSH Medical History (Updated 04/02/23 @ 09:43 by Sara Rand RN) History of hypercholesterolemia History of nephrolithiasis Hypertension Bipolar disorder control counseling At risk for diabetes mellitus Obesity Overflow stress urinary incontinence in female Posttraumatic stress disorder Seizure disorder Obsessive compulsive disorder Cyst near tailbone Surgical History History of surgical removal of pilonidal cyst History of lithotripsy Family History Father Chronic mental illness PCK (polycystic kidney disease) Hypothyroidism Post traumatic stress disorder (PTSD) Substance use disorder Mother Hyperthyroidism Post traumatic stress disorder (PTSD) Breast CA, Onset Age: 40 Other Mental health disorder Social History Household Members: Other Household Members Other:: Her dog Housing: Apartment Are you a primary animal care supervisor to a significant other at home: No Do you presently have visiting nurse or other home services: No Alcohol intake: never Patient Tobacco Use Status: Current everyday Tobacco user Tobacco use type: Cigarette Cigarette Packs Per Day: 1 Cigarettes Per Day: 20 Years Smoked: 15 e-Cigarette/Vaping Use: Never Used Second Hand Smoke Exposure: Yes service: No Current occupational status: employed Cognitive needs: No Hearing needs: No Vision needs: No Female Reproductive History Menstrual Age of Menarche: 11 Review of Systems Const Reports as per HPI Physical Exam Vital Signs: Last Vital Signs Pulse 78 07/07/23 15:15 BP 134/82 07/07/23 15:15 Pulse Ox 99 07/07/23 15:15 Oxygen Delivery Method Room Air 07/07/23 15:15 Const General: cooperative and no acute distress Resp Effort & Inspection: normal respiratory effort and able to speak in complete sentences Psych Appearance: grossly normal and well kempt Mental Status: mental status grossly normal Speech and movement: Normal speech and movement present Affect: Sad affect present Attitude: cooperative Thought process: Normal thought process present Thought content: Normal thought content present Assessment & Plan Assessment & Plan (1) Opioid use disorder, moderate, in early remission, dependence: Code(s): F11.21 - Opioid dependence, in remission Plan: -Continue suboxone 2mg bid -Encouraged patient to call or reach out via the portal if she finds herself in a depressive episode again -Relapse prevention discussed -Processed feelings with pt -Follow up 1 week Medications: Refilled buprenorphine-naloxone 2-0.5 mg (Suboxone) 1 film buccal BID 14 ea 0RF Coding Level of Care Code Est Pt Level 3 (99427) Diagnoses Opioid use disorder, moderate, in early remission, dependence F11.21
== END 2023-07-07 15:53 | disposition home or self-care (01) ==
PROVIDERS: Visit Provider Nurse Practitioner Family
DX: F11.21 Opioid dependence, in remission (principal)
CPT/HCPCS: 99213

== ENCOUNTER → 2023-07-07 14:45 | Outpatient (BNVA) | payer OTHER, MEDICARE, SELFPAY | PROVIDERS: Visit Provider Nurse Practitioner Family ==

== ENCOUNTER 2023-07-16 16:38 | Outpatient (AMB) | payer OTHER, MEDICARE, SELFPAY ==
--- NOTE | 2023-07-16 16:40 | MHC.AM.SUB ---
Intake Vital Signs 07/16/23 16:44 BP 128/84 Blood Pressure Location Lt radial Position Sitting Pulse 73 Pulse Source Pulse Oximeter Pulse Oximetry (%) 97 Oxygen Delivery Method Room Air Intake Visit Reasons: MAT Visit Spray Gun Operator Required: No Allergies buspirone [From BuSpar] Allergy (Severe, Verified 07/16/23 16:44) Seizure gabapentin Allergy (Unknown, Verified 07/16/23 16:44) memory loss hydrocodone [Vicodin] Allergy (Unknown, Verified 07/16/23 16:44) Anaphylaxis lactose [LACTOSE] Allergy (Unknown, Verified 07/16/23 16:44) unknown tramadol Adverse Reaction (Intermediate, Verified 07/16/23 16:44) hallucinations HPI MAT Visit HPI Details Patient presents for MAT visit Reports improvement in her depressive symptoms she had been experiencing, bright affect She has begun dating again after many years, and is feeling happy about this, future oriented She denies concerns related to recovery at this time, no cravings, or withdrawal symptoms Tolerating suboxone dose 2mg BID PFSH Medical History (Updated 04/02/23 @ 09:43 by Sara Rand RN) History of hypercholesterolemia History of nephrolithiasis Hypertension Bipolar disorder control counseling At risk for diabetes mellitus Obesity Overflow stress urinary incontinence in female Posttraumatic stress disorder Seizure disorder Obsessive compulsive disorder Cyst near tailbone Surgical History History of surgical removal of pilonidal cyst History of lithotripsy Family History Father Chronic mental illness PCK (polycystic kidney disease) Hypothyroidism Post traumatic stress disorder (PTSD) Substance use disorder Mother Hyperthyroidism Post traumatic stress disorder (PTSD) Breast CA, Onset Age: 40 Other Mental health disorder Social History Household Members: Other Household Members Other:: Her dog Housing: Apartment Are you a primary healthcare network pricing consultant to a significant other at home: No Do you presently have visiting nurse or other home services: No Alcohol intake: never Patient Tobacco Use Status: Current everyday Tobacco user Tobacco use type: Cigarette Cigarette Packs Per Day: 1 Cigarettes Per Day: 20 Years Smoked: 15 e-Cigarette/Vaping Use: Never Used Second Hand Smoke Exposure: Yes service: No Current occupational status: employed Cognitive needs: No Hearing needs: No Vision needs: No Female Reproductive History Menstrual Age of Menarche: 11 Review of Systems Const Reports as per HPI Physical Exam Vital Signs: Last Vital Signs Pulse 73 07/16/23 16:44 BP 128/84 07/16/23 16:44 Pulse Ox 97 07/16/23 16:44 Oxygen Delivery Method Room Air 07/16/23 16:44 Const General: cooperative Resp Effort & Inspection: normal respiratory effort Skin General skin exam: no rashes or lesions noted Psych Appearance: grossly normal Mental Status: mental status grossly normal Speech and movement: Normal speech and movement present Affect: normal affect Attitude: cooperative Thought process: Normal thought process present Assessment & Plan Assessment & Plan (1) Opioid use disorder, moderate, in early remission, dependence: Code(s): F11.21 - Opioid dependence, in remission Plan: -Mass pat reviewed -Continue suboxone at current dose -Follow up 1 week Orders: Orders Complete Blood Count Auto Diff 07/16/23 F11.21 - Opioid dependence, in remission Comprehensive Met. Panel 07/16/23 F11.21 - Opioid dependence, in remission Coding Level of Care Code Est Pt Level 3 (79738) Diagnoses Opioid use disorder, moderate, in early remission, dependence F11.21
[2023-07-16 16:44] VITALS: BP 128/84; PULSE 73; O2SAT 97
== END 2023-07-16 17:19 | disposition home or self-care (01) ==
PROVIDERS: Visit Provider Nurse Practitioner Family
DX: F11.21 Opioid dependence, in remission (principal)
CPT/HCPCS: 99213

== ENCOUNTER → 2023-07-16 16:38 | Outpatient (BNVA) | payer OTHER, MEDICARE, SELFPAY | PROVIDERS: Visit Provider Nurse Practitioner Family ==

== ENCOUNTER 2023-07-23 15:50 | Outpatient (AMB) | payer OTHER, MEDICARE, SELFPAY ==
--- NOTE | 2023-07-23 15:53 | MHC.AM.SUB ---
Intake Vital Signs 07/23/23 16:03 BP 134/70 Blood Pressure Location Lt radial Position Sitting Pulse 70 Pulse Source Pulse Oximeter Pulse Oximetry (%) 97 Oxygen Delivery Method Room Air Intake Visit Reasons: mat visit Intake Note: The patient presents for a mat visit Test Fixture Assembler Required: No Allergies buspirone [From BuSpar] Allergy (Severe, Verified 07/23/23 16:04) Seizure gabapentin Allergy (Unknown, Verified 07/23/23 16:04) memory loss hydrocodone [Vicodin] Allergy (Unknown, Verified 07/23/23 16:04) Anaphylaxis lactose [LACTOSE] Allergy (Unknown, Verified 07/23/23 16:04) unknown tramadol Adverse Reaction (Intermediate, Verified 07/23/23 16:04) hallucinations Do you need a note to return to daycare/school/sports/work: No HPI mat visit HPI Details Patient presents for MAT appointment Reports her week has overall gone well Upset about a statement a coworker made regarding her suboxone In a new relationship she is excited about Concerned she may be heading into a manic episode No concerns for recovery or related to her suboxone dose, she is still taking 2mg BID PFSH Medical History (Updated 04/02/23 @ 09:43 by Sara Rand RN) History of hypercholesterolemia History of nephrolithiasis Hypertension Bipolar disorder control counseling At risk for diabetes mellitus Obesity Overflow stress urinary incontinence in female Posttraumatic stress disorder Seizure disorder Obsessive compulsive disorder Cyst near tailbone Surgical History History of surgical removal of pilonidal cyst History of lithotripsy Family History Father Chronic mental illness PCK (polycystic kidney disease) Hypothyroidism Post traumatic stress disorder (PTSD) Substance use disorder Mother Hyperthyroidism Post traumatic stress disorder (PTSD) Breast CA, Onset Age: 40 Other Mental health disorder Social History Household Members: Other Household Members Other:: Her dog Housing: Apartment Are you a primary healthcare or medical to a significant other at home: No Do you presently have visiting nurse or other home services: No Alcohol intake: never Patient Tobacco Use Status: Current everyday Tobacco user Tobacco use type: Cigarette Cigarette Packs Per Day: 1 Cigarettes Per Day: 20 Years Smoked: 15 e-Cigarette/Vaping Use: Never Used Second Hand Smoke Exposure: Yes service: No Current occupational status: employed Cognitive needs: No Hearing needs: No Vision needs: No Female Reproductive History Menstrual Age of Menarche: 11 Review of Systems Const Reports as per HPI Psych Denies irritability, Denies homicidal ideation and Denies suicidal ideation Physical Exam Vital Signs: Last Vital Signs Pulse 70 07/23/23 16:03 BP 134/70 07/23/23 16:03 Pulse Ox 97 07/23/23 16:03 Oxygen Delivery Method Room Air 07/23/23 16:03 Const General: cooperative and no acute distress Resp Effort & Inspection: normal respiratory effort Psych Appearance: grossly normal Mental Status: mental status grossly normal Speech and movement: Pressured speech present Affect: Ecstatic affect present Attitude: cooperative Thought content: suicidality and no homicidality Insight: Good insight present (Psych) Judgement: Good judgement present (Psych) Results AMB 14 Panel Urine Drug Screen Urine Marijuana (THC) Negative Last Edit by Dinorah Pickett CMA on 07/23/23 16:07 Urine Cocaine Negative Last Edit by Dinorah Pickett CMA on 07/23/23 16:07 Urine Morphine Negative Last Edit by Dinorah Pickett CMA on 07/23/23 16:07 Urine Methamphetamine Negative Last Edit by Dinorah Pickett CMA on 07/23/23 16:07 Urine Amphetamine Negative Last Edit by Dinorah Pickett CMA on 07/23/23 16:07 Urine Benzodiazepine Negative Last Edit by Dinorah Pickett CMA on 07/23/23 16:07 Urine Barbiturates Negative Last Edit by Dinorah Pickett CMA on 07/23/23 16:07 Urine Methadone Negative Last Edit by Dinorah Pickett CMA on 07/23/23 16:07 Urine Buprenorphine Positive Last Edit by Dinorah Pickett CMA on 07/23/23 16:07 Urine Tricyclic Antidepressant Negative Last Edit by Dinorah Pickett CMA on 07/23/23 16:07 Urine MDMA Negative Last Edit by Dinorah Pickett CMA on 07/23/23 16:07 Urine Oxycodone Negative Last Edit by Dinorah Pickett CMA on 07/23/23 16:07 Urine Phencyclidine Negative Last Edit by Dinorah Pickett CMA on 07/23/23 16:07 Urine Propoxyphene Negative Last Edit by Dinorah Pickett CMA on 07/23/23 16:07 Results Reviewed Results Reviewed: Laboratory Last Values POC Urine Buprenorphine Positive 07/23/23 16:04 POC Urine Morphine Negative 07/23/23 16:04 POC Urine Oxycodone Negative 07/23/23 16:04 POC Urine Methadone Negative 07/23/23 16:04 POC Urine Propoxyphene Negative 07/23/23 16:04 POC Urine Barbiturates Negative 07/23/23 16:04 POC U Tricyclic Antidpr Negative 07/23/23 16:04 POC Urine PCP Negative 07/23/23 16:04 POC Ur Amphetamines Negative 07/23/23 16:04 POC Ur Methamphetamine Negative 07/23/23 16:04 POC Urine MDMA Negative 07/23/23 16:04 POC Ur Benzodiazepine Negative 07/23/23 16:04 POC Urine Cocaine Negative 07/23/23 16:04 POC Ur Marijuana (THC) Negative 07/23/23 16:04 Assessment & Plan Assessment & Plan (1) Opioid use disorder, moderate, in early remission, dependence: Code(s): F11.21 - Opioid dependence, in remission Plan: -Mass pat reviewed -Continue suboxone at current dose -Follow up 1 week (2) Bipolar 2 disorder, major depressive episode: Code(s): F31.81 - Bipolar II disorder Plan: -Reviewed with her to present to the emergency dept if she transitions to a manic episode -Provided her with information to reach out to [facility] -Encouraged her to reach out to [facility] to try and get connected with a psych prescriber. She reports PCP is reluctantly managing her meds at this time Orders: Orders AMB 14 Panel Urine Drug Screen Today Z51.81 - Encounter for therapeutic drug level monitoring Medications: Refilled buprenorphine-naloxone 2-0.5 mg (Suboxone) 1 film buccal BID 14 ea 0RF Coding Level of Care Code Est Pt Level 3 (48414) Diagnoses Opioid use disorder, moderate, in early remission, dependence F11.21 Bipolar 2 disorder, major depressive episode F31.81
--- NOTE | 2023-07-23 15:54 | MHC.AM.SUB ---
Intake Vital Signs 07/23/23 16:03 BP 134/70 Blood Pressure Location Lt radial Position Sitting Pulse 70 Pulse Source Pulse Oximeter Pulse Oximetry (%) 97 Oxygen Delivery Method Room Air Intake Visit Reasons: mat visit Intake Note: the patient presents for a mat visit Instructional Technology Facilitator Required: No Allergies buspirone [From BuSpar] Allergy (Severe, Verified 07/23/23 16:04) Seizure gabapentin Allergy (Unknown, Verified 07/23/23 16:04) memory loss hydrocodone [Vicodin] Allergy (Unknown, Verified 07/23/23 16:04) Anaphylaxis lactose [LACTOSE] Allergy (Unknown, Verified 07/23/23 16:04) unknown tramadol Adverse Reaction (Intermediate, Verified 07/23/23 16:04) hallucinations Do you need a note to return to daycare/school/sports/work: No [facility] Medical History (Updated 04/02/23 @ 09:43 by Sara Rand RN) History of hypercholesterolemia History of nephrolithiasis Hypertension Bipolar disorder control counseling At risk for diabetes mellitus Obesity Overflow stress urinary incontinence in female Posttraumatic stress disorder Seizure disorder Obsessive compulsive disorder Cyst near tailbone Surgical History History of surgical removal of pilonidal cyst History of lithotripsy Family History Father Chronic mental illness PCK (polycystic kidney disease) Hypothyroidism Post traumatic stress disorder (PTSD) Substance use disorder Mother Hyperthyroidism Post traumatic stress disorder (PTSD) Breast CA, Onset Age: 40 Other Mental health disorder Social History Household Members: Other Household Members Other:: Her dog Housing: Apartment Are you a primary direct care supervisor to a significant other at home: No Do you presently have visiting nurse or other home services: No Alcohol intake: never Patient Tobacco Use Status: Current everyday Tobacco user Tobacco use type: Cigarette Cigarette Packs Per Day: 1 Cigarettes Per Day: 20 Years Smoked: 15 e-Cigarette/Vaping Use: Never Used Second Hand Smoke Exposure: Yes service: No Current occupational status: employed Cognitive needs: No Hearing needs: No Vision needs: No Female Reproductive History Menstrual Age of Menarche: 11 Results AMB 14 Panel Urine Drug Screen Urine Marijuana (THC) Negative Last Edit by Dinorah Pickett CMA on 07/23/23 16:07 Urine Cocaine Negative Last Edit by Dionrah Pickett CMA on 07/23/23 16:07 Urine Morphine Negative Last Edit by Dinorah Pickett CMA on 07/23/23 16:07 Urine Methamphetamine Negative Last Edit by Dinorah Pickett CMA on 07/23/23 16:07 Urine Amphetamine Negative Last Edit by Dinorah Pickett CMA on 07/23/23 16:07 Urine Benzodiazepine Negative Last Edit by Dinorah Pickett CMA on 07/23/23 16:07 Urine Barbiturates Negative Last Edit by Dinorah Pickett CMA on 07/23/23 16:07 Urine Methadone Negative Last Edit by Dinorah Pickett CMA on 07/23/23 16:07 Urine Buprenorphine Positive Last Edit by Dinorah Pickett CMA on 07/23/23 16:07 Urine Tricyclic Antidepressant Negative Last Edit by Dinorah Pickett CMA on 07/23/23 16:07 Urine MDMA Negative Last Edit by Dinorah Pickett CMA on 07/23/23 16:07 Urine Oxycodone Negative Last Edit by Dinorah Pickett CMA on 07/23/23 16:07 Urine Phencyclidine Negative Last Edit by Dinorah Pickett CMA on 07/23/23 16:07 Urine Propoxyphene Negative Last Edit by Dinorah Pickett CMA on 07/23/23 16:07 Assessment & Plan Assessment & Plan Orders: Orders AMB 14 Panel Urine Drug Screen Today Z51.81 - Encounter for therapeutic drug level monitoring Coding
[2023-07-23 16:03] VITALS: BP 134/70; PULSE 70; O2SAT 97
== END 2023-07-23 16:28 | disposition home or self-care (01) ==
PROVIDERS: Visit Provider Nurse Practitioner Family
DX: F11.21 Opioid dependence, in remission (principal); F31.81 Bipolar II disorder; Z51.81 Encounter for therapeutic drug level monitoring
CPT/HCPCS: 99213

== ENCOUNTER → 2023-07-23 15:50 | Outpatient (BNVA) | payer OTHER, MEDICARE, SELFPAY | PROVIDERS: Visit Provider Nurse Practitioner Family | DX: F11.20 Opioid dependence, uncomplicated (principal); F31.81 Bipolar II disorder | CPT/HCPCS: 80305 ==

== ENCOUNTER 2023-07-27 14:41 | Outpatient (AMB) | payer OTHER, SELFPAY ==
[2023-07-27 14:46] VITALS: BP 128/70; PULSE 74; O2SAT 96
--- NOTE | 2023-07-27 14:46 | A.OFFVISCC_ITS ---
Intake Vital Signs 07/27/23 14:46 BP 128/70 Blood Pressure Location Lt radial Position Sitting Pulse 74 Pulse Source Pulse Oximeter Pulse Oximetry (%) 96 Oxygen Delivery Method Room Air Intake Visit Reasons: Medication Review Intake Note: the patient is here for a mat visit Client Services Administrator Required: No Allergies buspirone [From BuSpar] Allergy (Severe, Verified 07/29/23 15:56) Seizure gabapentin Allergy (Unknown, Verified 07/29/23 15:56) memory loss hydrocodone [Vicodin] Allergy (Unknown, Verified 07/29/23 15:56) Anaphylaxis lactose [LACTOSE] Allergy (Unknown, Verified 07/29/23 15:56) unknown tramadol Adverse Reaction (Intermediate, Verified 07/29/23 15:56) hallucinations Do you need a note to return to daycare/school/sports/work: No HPI Medication Review HPI Details Patient presents for follow up--seen here at [facility] for OUD Chart reviewed extrensively, including notes from recent admission to [facility]. While at [facility] some medications were adjusted and she was referred to a prescriber at discharge. Attempted to connect with psychiatric provider, and had a negative experience at her first appt. She felt provider was judgemental, mentioning that she looked her up and that she was not going to prescribe any of her medications because she had no clinical information on her. PCP has been prescribing medications in the mean time She has been trying to find a new provider, however many places are requiring she see therapist there and she already has a strong therapeutic rapport with her therapist. Previously taking Klonopin 0.5mg TID Down to 0.5mg QD-taking. She reports that she is cutting that dose in half and taking it BID to help cover her through the day. She feels the decrease was too much too fast and she is still experiencing panic Dose decrease occurred in March. When asked how this has been impacting her life, she reports that she is frequently missing work and feels anxious to go anywhere . Risperidone has been helpful Prazosin has been helpful with night terrors, but even a reduced dose makes her tired if she takes it during the day. Patient is very soft spoken and apologetic. This marketing writer discussed limitations with medication management here at [facility]. [facility] Medical History (Updated 04/02/23 @ 09:43 by Sara Rand RN) History of hypercholesterolemia History of nephrolithiasis Hypertension Bipolar disorder control counseling At risk for diabetes mellitus Obesity Overflow stress urinary incontinence in female Posttraumatic stress disorder Seizure disorder Obsessive compulsive disorder Cyst near tailbone Surgical History History of surgical removal of pilonidal cyst History of lithotripsy Family History Father Chronic mental illness PCK (polycystic kidney disease) Hypothyroidism Post traumatic stress disorder (PTSD) Substance use disorder Mother Hyperthyroidism Post traumatic stress disorder (PTSD) Breast CA, Onset Age: 40 Other Mental health disorder Social History Household Members: Other Household Members Other:: Her dog Housing: Apartment Are you a primary insurance healthcare representative to a significant other at home: No Do you presently have visiting nurse or other home services: No Alcohol intake: never Patient Tobacco Use Status: Current everyday Tobacco user Tobacco use type: Cigarette Cigarette Packs Per Day: 1 Cigarettes Per Day: 20 Years Smoked: 15 e-Cigarette/Vaping Use: Never Used Second Hand Smoke Exposure: Yes service: No Current occupational status: employed Cognitive needs: No Hearing needs: No Vision needs: No Female Reproductive History Menstrual Age of Menarche: 11 Review of Systems Const Reports as per HPI Physical Exam Vital Signs: Last Vital Signs Pulse 74 07/27/23 14:46 BP 128/70 07/27/23 14:46 Pulse Ox 96 07/27/23 14:46 Oxygen Delivery Method Room Air 07/27/23 14:46 Const General: cooperative, healthy appearing and well groomed Psych Appearance: well kempt Speech and movement: Clear speech present (soft spoken) Affect: normal affect Thought process: Normal thought process present Thought content: Normal thought content present (worry) Assessment & Plan Assessment & Plan (1) Post-traumatic stress disorder, chronic: Code(s): F43.12 - Post-traumatic stress disorder, chronic Plan: * discussed with ALIZA Duarte CONTAINER COORDINATOR. Patient would likely benefit from ongoing, regular psychiatric management and this is not possible in this setting * case to be presented to [facility] and psychiatric bridge program Coding Level of Care Code Est Pt Level 4 (65567) Diagnoses Post-traumatic stress disorder, chronic F43.12
== END 2023-07-27 16:10 | disposition home or self-care (01) ==
PROVIDERS: Visit Provider Nurse Practitioner Psychiatric/Mental Health
DX: F11.90 Opioid use, unspecified, uncomplicated (principal); F43.12 Post-traumatic stress disorder, chronic
CPT/HCPCS: 99214

== ENCOUNTER → 2023-07-27 14:41 | Outpatient (BNVA) | payer OTHER, MEDICARE, SELFPAY | PROVIDERS: Visit Provider Nurse Practitioner Psychiatric/Mental Health ==

== ENCOUNTER 2023-07-29 15:41 | Outpatient (AMB) | payer OTHER, SELFPAY ==
--- NOTE | 2023-07-29 15:49 | MHC.AM.IAPNC ---
IAP Other Agencies/Support IAP Other Agencies/Support Other Agencies/Community Supports/Resources Supporting IAP: [] None Reported [] No Change Agency Name [] Contact and Title [] Services Currently Provided [] Release Signed [] Yes [] No Agency Name [] Contact and Title [] Services Currently Provided [] Release Signed [] Yes [] No Agency Name [] Contact and Title [] Services Currently Provided [] Release Signed [] Yes [] No Agency Name [] Contact and Title [] Services Currently Provided [] Release Signed [] Yes [] No
--- NOTE | 2023-07-29 15:50 | A.OFFVISCC_ITS ---
Intake Vital Signs 07/29/23 15:54 BP 116/82 Blood Pressure Location Lt radial Position Sitting Pulse 73 Pulse Source Pulse Oximeter Pulse Oximetry (%) 96 Oxygen Delivery Method Room Air Intake Visit Reasons: mat visit Intake Note: the patient presents for a mat visit Lumber Tying Machine Operator Required: No Allergies buspirone [From BuSpar] Allergy (Severe, Verified 07/29/23 15:56) Seizure gabapentin Allergy (Unknown, Verified 07/29/23 15:56) memory loss hydrocodone [Vicodin] Allergy (Unknown, Verified 07/29/23 15:56) Anaphylaxis lactose [LACTOSE] Allergy (Unknown, Verified 07/29/23 15:56) unknown tramadol Adverse Reaction (Intermediate, Verified 07/29/23 15:56) hallucinations Do you need a note to return to daycare/school/sports/work: No HPI mat visit HPI Details Patient presents for MAT appointment Reports her cravings have been minimal this week Doing well at work, interpersonal issue she was having with a co-worker was resolved Upon review of [facility], she should be out of films, last fill was 07/09/23 for 7 days worth of films When t/w asked her she immediately became tearful stating she has been taking her films, and concerned she may have been disassociating She reports having dissociative episodes in the past prior to manic episodes Feels safe at this time, just worried [facility] Medical History (Updated 04/02/23 @ 09:43 by Sara Rand RN) History of hypercholesterolemia History of nephrolithiasis Hypertension Bipolar disorder control counseling At risk for diabetes mellitus Obesity Overflow stress urinary incontinence in female Posttraumatic stress disorder Seizure disorder Obsessive compulsive disorder Cyst near tailbone Surgical History History of surgical removal of pilonidal cyst History of lithotripsy Family History Father Chronic mental illness PCK (polycystic kidney disease) Hypothyroidism Post traumatic stress disorder (PTSD) Substance use disorder Mother Hyperthyroidism Post traumatic stress disorder (PTSD) Breast CA, Onset Age: 40 Other Mental health disorder Social History Household Members: Other Household Members Other:: Her dog Housing: Apartment Are you a primary zoo caretaker to a significant other at home: No Do you presently have visiting nurse or other home services: No Alcohol intake: never Patient Tobacco Use Status: Current everyday Tobacco user Tobacco use type: Cigarette Cigarette Packs Per Day: 1 Cigarettes Per Day: 20 Years Smoked: 15 e-Cigarette/Vaping Use: Never Used Second Hand Smoke Exposure: Yes service: No Current occupational status: employed Cognitive needs: No Hearing needs: No Vision needs: No Female Reproductive History Menstrual Age of Menarche: 11 Review of Systems Eyes Reports as per HPI Physical Exam Vital Signs: Last Vital Signs Pulse 73 07/29/23 15:54 BP 116/82 07/29/23 15:54 Pulse Ox 96 07/29/23 15:54 Oxygen Delivery Method Room Air 07/29/23 15:54 Const General: cooperative and well developed Resp Effort & Inspection: normal respiratory effort and able to speak in complete sentences Auscultation: clear to auscultation bilaterally Psych Appearance: grossly normal and well kempt Mental Status: mental status grossly normal Speech and movement: Normal speech and movement present Affect: normal affect Attitude: cooperative Thought content: suicidality and no homicidality Assessment & Plan Assessment & Plan (1) Opioid use disorder, moderate, in early remission, dependence: Code(s): F11.21 - Opioid dependence, in remission Plan: -Mass pat reviewed -Pt to call her therapist immediately after appointment -Discussed with her potential referral to bridge clinic for psychiatric medication management -Follow up 1 week Coding Level of Care Code Est Pt Level 3 (14343) Diagnoses Opioid use disorder, moderate, in early remission, dependence F11.21
[2023-07-29 15:54] VITALS: BP 116/82; PULSE 73; O2SAT 96
== END 2023-07-29 16:24 | disposition home or self-care (01) ==
PROVIDERS: Visit Provider Nurse Practitioner Family
DX: F11.21 Opioid dependence, in remission (principal)
CPT/HCPCS: 99213

== ENCOUNTER → 2023-07-29 15:41 | Outpatient (BNVA) | payer OTHER, MEDICARE, SELFPAY | PROVIDERS: Visit Provider Nurse Practitioner Family | DX: Z51.81 Encounter for therapeutic drug level monitoring (principal) ==

== ENCOUNTER 2023-08-04 15:32 | Outpatient (AMB) | payer OTHER, SELFPAY ==
--- NOTE | 2023-08-04 15:34 | A.OFFVISCC_ITS ---
Intake Vital Signs 08/04/23 15:38 BP 140/90 H Blood Pressure Location Lt radial Position Sitting Pulse 82 Pulse Source Pulse Oximeter Pulse Oximetry (%) 96 Oxygen Delivery Method Room Air Intake Visit Reasons: mat visit Intake Note: The patient presents for a mat visit Allergies buspirone [From BuSpar] Allergy (Severe, Verified 08/04/23 15:42) Seizure gabapentin Allergy (Unknown, Verified 08/04/23 15:42) memory loss hydrocodone [Vicodin] Allergy (Unknown, Verified 08/04/23 15:42) Anaphylaxis lactose [LACTOSE] Allergy (Unknown, Verified 08/04/23 15:42) unknown tramadol Adverse Reaction (Intermediate, Verified 08/04/23 15:42) hallucinations Do you need a note to return to daycare/school/sports/work: No HPI mat visit HPI Details Pt presents for MAT visit Reports she called her therapist last week to discuss losing time She was told by her therapist she should be around others for the next few days so she stayed at her mothers for the weekend, reports she was able to obtain and catch up on much needed sleep She has been taking her suboxone 1mg qid and reports this continues to work well for her, no cravings at this time Reports she is on the waiting list for outpatient psychiatrist [facility] Medical History (Updated 04/02/23 @ 09:43 by Sara Rand RN) History of hypercholesterolemia History of nephrolithiasis Hypertension Bipolar disorder control counseling At risk for diabetes mellitus Obesity Overflow stress urinary incontinence in female Posttraumatic stress disorder Seizure disorder Obsessive compulsive disorder Cyst near tailbone Surgical History History of surgical removal of pilonidal cyst History of lithotripsy Family History Father Chronic mental illness PCK (polycystic kidney disease) Hypothyroidism Post traumatic stress disorder (PTSD) Substance use disorder Mother Hyperthyroidism Post traumatic stress disorder (PTSD) Breast CA, Onset Age: 40 Other Mental health disorder Social History Household Members: Other Household Members Other:: Her dog Housing: Apartment Are you a primary career transition specialist to a significant other at home: No Do you presently have visiting nurse or other home services: No Alcohol intake: never Patient Tobacco Use Status: Current everyday Tobacco user Tobacco use type: Cigarette Cigarette Packs Per Day: 1 Cigarettes Per Day: 20 Years Smoked: 15 e-Cigarette/Vaping Use: Never Used Second Hand Smoke Exposure: Yes service: No Current occupational status: employed Cognitive needs: No Hearing needs: No Vision needs: No Female Reproductive History Menstrual Age of Menarche: 11 Review of Systems Const Reports as per HPI Physical Exam Vital Signs: Last Vital Signs Pulse 82 08/04/23 15:38 BP 140/90 H 08/04/23 15:38 Pulse Ox 96 08/04/23 15:38 Oxygen Delivery Method Room Air 08/04/23 15:38 Const General: cooperative and comfortable Resp Effort & Inspection: normal respiratory effort and able to speak in complete sentences Psych Appearance: grossly normal and well kempt Mental Status: mental status grossly normal Speech and movement: Normal speech and movement present Affect: Labile affect present Attitude: cooperative Thought content: Normal thought content present, suicidality and no homicidality Insight: Good insight present (Psych) Assessment & Plan Assessment & Plan (1) Opioid use disorder, moderate, in early remission, dependence: Code(s): F11.21 - Opioid dependence, in remission Plan: -Discussed with her the bridge clinic for psychiatric medication management -Reviewed with her to call clinic when she needs a refill -Follow up 1 week Coding Level of Care Code Est Pt Level 3 (56023) Diagnoses Opioid use disorder, moderate, in early remission, dependence F11.21
[2023-08-04 15:38] VITALS: BP 140/90; PULSE 82; O2SAT 96
== END 2023-08-04 16:02 | disposition home or self-care (01) ==
PROVIDERS: Visit Provider Nurse Practitioner Family
DX: F11.21 Opioid dependence, in remission (principal)
CPT/HCPCS: 99213

== ENCOUNTER → 2023-08-04 15:32 | Outpatient (BNVA) | payer OTHER, MEDICARE, SELFPAY | PROVIDERS: Visit Provider Nurse Practitioner Family | DX: Z51.81 Encounter for therapeutic drug level monitoring (principal) ==

== ENCOUNTER 2023-08-11 14:13 | Outpatient (AMB) | payer OTHER, SELFPAY ==
--- NOTE | 2023-08-11 14:17 | A.OFFVISCC_ITS ---
Intake Vital Signs 08/11/23 14:26 BP 128/78 Blood Pressure Location Lt radial Position Sitting Pulse 93 Pulse Source Pulse Oximeter Pulse Oximetry (%) 97 Oxygen Delivery Method Room Air Intake Visit Reasons: MAT Intake Note: The patient is here for a mat visit Harvest Supervisor Required: No Allergies buspirone [From BuSpar] Allergy (Severe, Verified 08/11/23 14:18) Seizure gabapentin Allergy (Unknown, Verified 08/11/23 14:18) memory loss hydrocodone [Vicodin] Allergy (Unknown, Verified 08/11/23 14:18) Anaphylaxis lactose [LACTOSE] Allergy (Unknown, Verified 08/11/23 14:18) gi issues tramadol Adverse Reaction (Intermediate, Verified 08/11/23 14:18) hallucinations Do you need a note to return to daycare/school/sports/work: No HPI MAT HPI Details Patient presents for MAT visit Started partial hospitalization yesterday, expressing happiness and relief to be in care with them Reporting she is in a better headspace than she was on the previous few visits, less tearful Expressed she is on leave from work and is trying to catch up on sleep Has no concerns for recovery, is proud she has not resorted to using to deal with recent manic episode and subsequent crash Has been taking suboxone 1mg qid and is tolerating this well [facility] Medical History (Updated 08/11/23 @ 08:11 by Deb Luis MD) History of concussion History of hypercholesterolemia History of nephrolithiasis Hypertension Bipolar disorder control counseling At risk for diabetes mellitus Obesity Overflow stress urinary incontinence in female Posttraumatic stress disorder Seizure disorder Obsessive compulsive disorder Cyst near tailbone Surgical History History of surgical removal of pilonidal cyst History of lithotripsy Family History Father Chronic mental illness PCK (polycystic kidney disease) Hypothyroidism Post traumatic stress disorder (PTSD) Substance use disorder Mother Hyperthyroidism Post traumatic stress disorder (PTSD) Breast CA, Onset Age: 40 Other Mental health disorder Social History Household Members: Other Household Members Other:: My dog Housing: Apartment Are you a primary resident care assistant to a significant other at home: No Do you presently have visiting nurse or other home services: No Alcohol intake: never Patient Tobacco Use Status: Current everyday Tobacco user Tobacco use type: Cigarette Cigarette Packs Per Day: 1 Cigarettes Per Day: 20 Years Smoked: 15 e-Cigarette/Vaping Use: Never Used Second Hand Smoke Exposure: Yes service: No Current occupational status: employed Cognitive needs: No Hearing needs: No Vision needs: No Female Reproductive History Menstrual Age of Menarche: 11 Review of Systems Const Reports as per HPI Physical Exam Vital Signs: Last Vital Signs Pulse 93 08/11/23 14:26 BP 128/78 08/11/23 14:26 Pulse Ox 97 08/11/23 14:26 Oxygen Delivery Method Room Air 08/11/23 14:26 Const General: cooperative and no acute distress Resp Effort & Inspection: normal respiratory effort Psych Appearance: grossly normal Mental Status: mental status grossly normal Speech and movement: Normal speech and movement present Affect: normal affect Attitude: cooperative Thought content: suicidality and no homicidality Insight: Good insight present (Psych) Judgement: Good judgement present (Psych) Results AMB 14 Panel Urine Drug Screen Urine Marijuana (THC) Negative Last Edit by Dinorah Pickett CMA on 08/11/23 14:28 Urine Cocaine Negative Last Edit by Dinorah Pickett CMA on 08/11/23 14:28 Urine Morphine Negative Last Edit by Dinorah Pickett CMA on 08/11/23 14:28 Urine Methamphetamine Negative Last Edit by Dinorah Pickett CMA on 08/11/23 14:28 Urine Amphetamine Negative Last Edit by Dinorah Pickett CMA on 08/11/23 14:2 8 Urine Benzodiazepine Negative Last Edit by Dinorah Pickett CMA on 08/11/23 14:28 Urine Barbiturates Negative Last Edit by Dinorah Pickett CMA on 08/11/23 14: 28 Urine Methadone Negative Last Edit by Dinorah Pickett CMA on 08/11/23 14:28 Urine Buprenorphine Positive Last Edit by Dinorah Pickett CMA on 08/11/23 14 :28 Urine Tricyclic Antidepressant Negative Last Edit by Dinorah Pickett CMA on 08/11/23 14:28 Urine MDMA Negative Last Edit by Dinorah Pickett CMA on 08/11/23 14:28 Urine Oxycodone Negative Last Edit by Dinorah Pickett CMA on 08/11/23 14:28 Urine Phencyclidine Negative Last Edit by Dinorah Pickett CMA on 08/11/23 14 :28 Urine Propoxyphene Negative Last Edit by Dinorah Pickett CMA on 08/11/23 14: 28 Results Reviewed Results Reviewed: Laboratory Last Values POC Urine Buprenorphine Positive 08/11/23 14:18 POC Urine Morphine Negative 08/11/23 14:18 POC Urine Oxycodone Negative 08/11/23 14:18 POC Urine Methadone Negative 08/11/23 14:18 POC Urine Propoxyphene Negative 08/11/23 14:18 POC Urine Barbiturates Negative 08/11/23 14:18 POC U Tricyclic Antidpr Negative 08/11/23 14:18 POC Urine PCP Negative 08/11/23 14:18 POC Ur Amphetamines Negative 08/11/23 14:18 POC Ur Methamphetamine Negative 08/11/23 14:18 POC Urine MDMA Negative 08/11/23 14:18 POC Ur Benzodiazepine Negative 08/11/23 14:18 POC Urine Cocaine Negative 08/11/23 14:18 POC Ur Marijuana (THC) Negative 08/11/23 14:18 Assessment & Plan Assessment & Plan (1) Opioid use disorder, moderate, in early remission, dependence: Code(s): F11.21 - Opioid dependence, in remission Plan: -Mass pat reviewed -Continue suboxone at current dose -Follow up 1 week- sooner if necessary Orders: Orders AMB 14 Panel Urine Drug Screen Today Z51.81 - Encounter for therapeutic drug level monitoring Medications: Refilled buprenorphine-naloxone 2-0.5 mg (Suboxone) 1 film buccal BID 14 ea 0RF Coding Level of Care Code Est Pt Level 3 (08985) Diagnoses Opioid use disorder, moderate, in early remission, dependence F11.21
[2023-08-11 14:26] VITALS: BP 128/78; PULSE 93; O2SAT 97
== END 2023-08-11 14:49 | disposition home or self-care (01) ==
PROVIDERS: Visit Provider Nurse Practitioner Family
DX: F11.21 Opioid dependence, in remission (principal); Z51.81 Encounter for therapeutic drug level monitoring
CPT/HCPCS: 99213

== ENCOUNTER → 2023-08-11 14:13 | Outpatient (BNVA) | payer OTHER, MEDICARE, SELFPAY | PROVIDERS: Visit Provider Nurse Practitioner Family | DX: F11.20 Opioid dependence, uncomplicated (principal) | CPT/HCPCS: 80305 ==

== ENCOUNTER 2023-08-17 14:23 | Outpatient (AMB) | payer OTHER, SELFPAY ==
--- NOTE | 2023-08-17 14:24 | MHC.AM.SUB ---
Intake Vital Signs 08/17/23 14:30 BP 134/78 Blood Pressure Location Lt radial Position Sitting Pulse 78 Pulse Source Pulse Oximeter Pulse Oximetry (%) 97 Oxygen Delivery Method Room Air Intake Visit Reasons: MAT Intake Note: The patient is here for a mat visit Security Incident Response Specialist Required: No Allergies buspirone [From BuSpar] Allergy (Severe, Verified 08/17/23 14:31) Seizure gabapentin Allergy (Unknown, Verified 08/17/23 14:31) memory loss hydrocodone [Vicodin] Allergy (Unknown, Verified 08/17/23 14:31) Anaphylaxis lactose [LACTOSE] Allergy (Unknown, Verified 08/17/23 14:31) gi issues tramadol Adverse Reaction (Intermediate, Verified 08/17/23 14:31) hallucinations Do you need a note to return to daycare/school/sports/work: No HPI MAT HPI Details Patient presents for MAT visit She reports the last week has been difficult as she has been processing her new diagnosis of Bipolar 1 She feels as though the herson has subsided and has felt tired SHe has had some med changes in partial she reports seem so far to be helpful She presents today with some mild diaphoresis because she did not take her half of film after partial She has no concerns for reovery, states cravings only occur when it is nearing time for next film which she alleviates by taking her film [facility] Medical History (Updated 08/17/23 @ 23:35 by Deb Luis MD) History of concussion History of hypercholesterolemia History of nephrolithiasis Hypertension Bipolar disorder control counseling At risk for diabetes mellitus Obesity Overflow stress urinary incontinence in female Posttraumatic stress disorder Seizure disorder Obsessive compulsive disorder Cyst near tailbone Surgical History History of surgical removal of pilonidal cyst History of lithotripsy Family History Father Chronic mental illness PCK (polycystic kidney disease) Hypothyroidism Post traumatic stress disorder (PTSD) Substance use disorder Mother Hyperthyroidism Post traumatic stress disorder (PTSD) Breast CA, Onset Age: 40 Other Mental health disorder Social History Household Members: Other Household Members Other:: My dog Housing: Apartment Are you a primary resident caregiver to a significant other at home: No Do you presently have visiting nurse or other home services: No Alcohol intake: never Patient Tobacco Use Status: Current everyday Tobacco user Tobacco use type: Cigarette Cigarette Packs Per Day: 1 Cigarettes Per Day: 20 Years Smoked: 15 e-Cigarette/Vaping Use: Never Used Patient Interested in Nicotine Replacement: Yes (Patient has Nicotine Patch.) Patient Given Instructions on How to Stop Smoking: No Second Hand Smoke Exposure: Yes Do you have thoughts of harming others: None service: No Current occupational status: employed Cognitive needs: No Hearing needs: No Vision needs: No Female Reproductive History Menstrual Age of Menarche: 11 Review of Systems Const Reports as per HPI Physical Exam Vital Signs: Last Vital Signs Pulse 78 08/17/23 14:30 BP 134/78 08/17/23 14:30 Pulse Ox 97 08/17/23 14:30 Oxygen Delivery Method Room Air 08/17/23 14:30 Const General: cooperative, no acute distress and diaphoretic (mildly) Resp Effort & Inspection: normal respiratory effort Psych Appearance: grossly normal Mental Status: mental status grossly normal Speech and movement: Normal speech and movement present Affect: Labile affect present Attitude: cooperative Assessment & Plan Assessment & Plan (1) Opioid use disorder, moderate, in early remission, dependence: Code(s): F11.21 - Opioid dependence, in remission Plan: -Discussed with patient changing from taking 1/2 film (1mg) qid to taking the 2mg BID to eliminate some of the peak and trough effects of the medication -Mass pat reviewed -Suggested patient keep a calendar to help her stay grounded -Follow up 1 week Medications: Refilled buprenorphine-naloxone 2-0.5 mg (Suboxone) 1 film buccal BID 14 ea 0RF Coding Level of Care Code Est Pt Level 3 (98067) Diagnoses Opioid use disorder, moderate, in early remission, dependence F11.21
[2023-08-17 14:30] VITALS: BP 134/78; PULSE 78; O2SAT 97
== END 2023-08-17 14:56 | disposition home or self-care (01) ==
PROVIDERS: Visit Provider Nurse Practitioner Family
DX: F11.21 Opioid dependence, in remission (principal)
CPT/HCPCS: 99213

== ENCOUNTER → 2023-08-17 14:23 | Outpatient (BNVA) | payer OTHER, MEDICARE, SELFPAY | PROVIDERS: Visit Provider Nurse Practitioner Family | DX: Z51.81 Encounter for therapeutic drug level monitoring (principal) ==

== ENCOUNTER 2023-08-24 14:17 | Outpatient (AMB) | payer OTHER, MEDICARE, SELFPAY ==
--- NOTE | 2023-08-24 14:19 | MHC.AM.SUB ---
Intake Intake Visit Reasons: MAT Allergies buspirone [From BuSpar] Allergy (Severe, Verified 08/25/23 11:38) Seizure gabapentin Allergy (Unknown, Verified 08/25/23 11:38) memory loss hydrocodone [Vicodin] Allergy (Unknown, Verified 08/25/23 11:38) Anaphylaxis lactose [LACTOSE] Allergy (Unknown, Verified 08/25/23 11:38) gi issues tramadol Adverse Reaction (Intermediate, Verified 08/25/23 11:38) hallucinations HPI MAT HPI Details Pt presents for MAT visit Reports partial is going well for her and she has been processing a lot of feelings States she has had good effect from med changes and that she is also currently in a hypomanic episode She apprears euphoric, mood appears elevated She states the meds have helped with the scary thoughts Has no cravings to use, states it has been a big improvement for her taking her 2mg BID instead of 1mg qid States the med lasts longer, and she has been able to tolerate it well Says she is working on quitting smoking cigarettes HPI Comments History of Present Illness Details Patient presents for MAT visit [facility] Medical History (Updated 08/25/23 @ 14:16 by Rene Larsen MD) History of concussion History of hypercholesterolemia History of nephrolithiasis Hypertension Bipolar disorder control counseling At risk for diabetes mellitus Obesity Overflow stress urinary incontinence in female Posttraumatic stress disorder Seizure disorder Obsessive compulsive disorder Cyst near tailbone Surgical History History of surgical removal of pilonidal cyst History of lithotripsy Family History Father Chronic mental illness PCK (polycystic kidney disease) Hypothyroidism Post traumatic stress disorder (PTSD) Substance use disorder Mother Hyperthyroidism Post traumatic stress disorder (PTSD) Breast CA, Onset Age: 41 Other Mental health disorder Social History Household Members: Other Household Members Other:: My dog Housing: Apartment Are you a primary caregiver services home to a significant other at home: No Do you presently have visiting nurse or other home services: No Alcohol intake: never Patient Tobacco Use Status: Current everyday Tobacco user Tobacco use type: Cigarette Cigarette Packs Per Day: 1 Cigarettes Per Day: 20 Years Smoked: 15 e-Cigarette/Vaping Use: Never Used Patient Interested in Nicotine Replacement: Yes (Patient has Nicotine Patch.) Patient Given Instructions on How to Stop Smoking: No Second Hand Smoke Exposure: Yes Do you have thoughts of harming others: None service: No Current occupational status: employed Cognitive needs: No Hearing needs: No Vision needs: No Female Reproductive History Menstrual Age of Menarche: 11 Review of Systems Const Reports as per HPI Physical Exam Const General: cooperative and no acute distress Resp Effort & Inspection: normal respiratory effort and able to speak in complete sentences Psych Appearance: grossly normal Mental Status: mental status grossly normal Speech and movement: Pressured speech present Affect: Ecstatic affect present Attitude: cooperative Thought process: Perseverating thought process present Assessment & Plan Assessment & Plan (1) Opioid use disorder, moderate, in early remission, dependence: Code(s): F11.21 - Opioid dependence, in remission Plan: -Mass pat reviewed -Suboxone refilled at 2mg BID x 1 week -Sent for script for NRT inhaler -Follow up 1 week Medications: New nicotine 1 inh inhalation Q4-6H PRN 168 ea 0RF nicotine cravings Refilled buprenorphine-naloxone 2-0.5 mg (Suboxone) 1 film buccal BID 14 ea 0RF Coding Level of Care Code Est Pt Level 3 (93163) Diagnoses Opioid use disorder, moderate, in early remission, dependence F11.21
== END 2023-08-24 14:57 | disposition home or self-care (01) ==
PROVIDERS: Visit Provider Nurse Practitioner Family
DX: F11.21 Opioid dependence, in remission (principal)
CPT/HCPCS: 99213

== ENCOUNTER → 2023-08-24 14:17 | Outpatient (BNVA) | payer OTHER, MEDICARE, SELFPAY | PROVIDERS: Visit Provider Nurse Practitioner Family | DX: Z51.81 Encounter for therapeutic drug level monitoring (principal) ==

== ENCOUNTER 2023-08-31 13:15 | Outpatient (RCR) | payer OTHER, MEDICARE, SELFPAY ==
[2023-08-10 13:21] VITALS: BMI 32.6
[2023-08-10 14:25] VITALS: BP 165/113; PULSE 70; TEMP 36.9
--- NOTE | 2023-08-10 14:28 | PC.ADMIT ---
Patient is a 43 year old single female who was referred to [facility] by [facility] where she receives MAT for history of opiate use. Patient has history of Bipolar disorder and reports she had a manic episode for about 3 weeks where she reports, I went from feeling amazing for three weeks, everything felt glorious, everything was amazing, taste was amazing, and last week I hit the ground emotionally . Feeling depressed currently. Patient stated staff at the [facility] was telling her she was talking too fast and was too euphoric. I never experienced a high like that . Patient reports 4-5 days without sleep during that time. Patient reports losing sense of time stating, Threes weeks went by where I lost time. I only remember little things . Patient reports she was hyper-sexual however did not have sexual relations with others. Reports not hyper-sexual currently. She currently is taking a BLAYNE from work. She stated, I couldn't function at work . She has been working for [employer] in [employer] for the past 5.5 years going on 6 years and enjoys her job. Patient is alert and oriented x4. Calm and cooperative. Presented with depressed mood and anxious affect. Reports passive suicidal thoughts however reports she has no plan or intention of killing herself. She is here to get help to improve her mood. She was given a copy of her safety plan if needed and I reviewed the plan with her. She reports during the manic episode she does not remember if she was taking her medications as prescribed. She reports she is currently taking her medications as prescribed however ran out of Prazosin 3 days ago. Patient also reports history of HTN. BP 165/[address] Luis is aware. [ End ]
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
[2023-08-13 13:08] VITALS: BP 140/110; PULSE 67
--- NOTE | 2023-08-13 15:28 | HO.PHP ---
Pt's case has been opened and reviewed in teams.
[2023-08-13 16:16] LABS: Amphetamine Screen Urine Not Detected (Not Detect); Barbiturates, Urine Not Detected (Not Detect); Benzodiazepines Screen Urine Not Detected (Not Detect); Cannabinoid Screen Urine Not Detected (Not Detect); Cocaine Screen Urine Not Detected (Not Detect); Fentanyl, urine Not Detected (Not Detect); Opiate Screen Urine Not Detected (Not Detect); Phencyclidine Screen Urine Not Detected (Not Detect)
[2023-08-14 12:22] VITALS: BP 164/96; PULSE 68
--- NOTE | 2023-08-14 12:24 | PC.NURSE ---
Patient is hypertensive. BP 164-[address] Luis is aware. Patient stated her PCP is watching her blood pressures. Reports history of high blood pressures. She reports she has an appointment with her PCP on 08/25/23. Plan is to give her a copy of her blood pressure readings while in PHP and give her a copy to give to her PCP to review.
--- NOTE | 2023-08-14 23:36 | P.PNPSP_ITS ---
Subjective Subjective Date of Service: 08/14/23 Reason For Visit: depression Interim History: Patient opened up about her recent manic experiences, she was initially reluctant as she has been afraid to talk about it, especially in groups, for fear of judgment and it being too exposing and too much for other people to handle. She assures me she is taking more precautions, and has been taking it slower now that she isnt manic. She feels fortunate no harm befell her and relays being very aware about the risks of engaging in this SM lifestyle, which she says offers some beneficial aspects including relief from always having to do the right, always under judgment . . She states is all new to her and says it has been helpful to open up about the experience and says she will try talking about it with her therapist next week. She reports the herson is slowing down a bit . EVerything tasted better, things were great when she was manic, but admits after about 3 weeks of the euphoria, dark thought started to creep in for a week with worsening SI though without any plan or intent she was however experiencing it very intensiely on daily basis and says this was very scary, and enough to never want to be manic again or risk crashing down from there . The Zyprexa has been helping, but is noted to have continued at only 1/2 tablet (=2.5 mg) and didnt realize she was supposed to titrate up to one whole 5 mg tablet in interim. She agrees to do so tonight. Given the extreme nature of symptoms she detailed, will also add on an additional 2.5 mg in AM and she may drip the risperidone in the AM to accommodate. Currently denies any SI, no SI, AH, VH. Medication Compliance: Yes Side effects from medications: No Attending Groups: Yes Review of Systems Acute medical concerns: No Mental Status Exam Mental Status Exam Narrative: Alert, oriented, in no acute distress. Casually dressed. Polite, overly apologetic. Stilted communication style but otherwise cooperative and forthcoming. Eye contact good. Speech normal, without dysarthria, latency or pre ssured speech. Mood anxious, affect anxious, labile. Thought process linear, coherent.. No evidence of thought disorder. Thought content relevant to stressors. No paranoid or delusional content elicited. No SI or HI on inquiry. No evidence of perceptual disturbance. Cognition grossly intact. Sensorium clear. Insight fair. judgment fair/good. Diagnostics Vital Signs (24Hr): Vital Signs - 24 hr 08/14/23 12:22 Pulse Rate 68 Blood Pressure 164/96 H BMI result Body Mass Index 32.6 Labs Labs: Laboratory Results - last 48 hr 08/10/23 13:50 Urine Opiates Screen Not Detected Urine Fentanyl Screen Not Detected Ur Barbiturates Screen Not Detected Ur Phencyclidine Scrn Not Detected Ur Amphetamines Screen Not Detected U Benzodiazepines Scrn Not Detected Urine Cocaine Screen Not Detected U Marijuana (THC) Screen Not Detected Assessment & Plan Assessment & Plan (1) Bipolar I disorder, current or most recent episode manic, in partial remission with mixed features: Status: Acute Code(s): F31.73 - Bipolar disorder, in partial remission, most recent episode manic (2) Post-traumatic stress disorder, chronic: Status: Acute Code(s): F43.12 - Post-traumatic stress disorder, chronic (3) Opioid use disorder, moderate, in early remission, dependence: Status: Acute Code(s): F11.21 - Opioid dependence, in remission Plan increase evening dose of olanzapine to 5 mg QHS start olanzapine 2.5 mg QAM and 2.5 mg qd PRN agitation/herson hold risperidone 0.25 mg qd in AM, continue risperidone 0.25 mg qd in evening start topiramate 25 mg BID continue lamotrigine 250 mg BID continue Viibrid 40 mg qd continue prazosin 1 mg BID continue Suboxone 2 mg- 0.5 mg BID continue to monitor Patient educated on: diagnosis, medication risk/benefits and substance abuse Informed Consent: understands Reason for contiued partial hosp. stay Substantial Risk for: inability to function, rapid decompensation and med/psych decompensation Certification I certify that partial hospital treatment is medically necessary due to the symptoms and problems resulting from the patient's mental illness and the failure to treat the patient at the partial hospital level of care would likely result in the patient requiring inpatient psychiatric care which could not be prevented at a less intensive level of care. Total time managing care of this patient today __30__ minutes. Discharge Plan Discharge Attending provider: Deb Luis Medications: New olanzapine 5 mg tablet 2.5 - 5 mg PO BEDTIME Qty: 20 0RF topiramate 25 mg tablet 25 mg PO BID Qty: 30 0RF metformin 500 mg tablet 250 mg PO BID Qty: 30 0RF Continued lamotrigine 200 mg tablet 200 mg PO BID 90 Days Qty: 180 0RF lamotrigine 25 mg tablet 50 mg PO BID 90 Days Qty: 360 0RF vilazodone 40 mg tablet 40 mg PO DAILY 90 Days Qty: 90 0RF nicotine 21 mg/24 hr patch 24 hour 1 patch transdermal DAILY Qty: 28 0RF nicotine 14 mg/24 hr patch 24 hour 1 patch transdermal DAILY Qty: 28 0RF risperidone 0.25 mg tablet 0.25 - 0.5 mg PO BID Qty: 60 4RF buprenorphine-naloxone [Suboxone] 2-0.5 mg film 1 film buccal BID Qty: 14 0RF naloxone [Narcan] 4 mg/actuation spray,non-aerosol 4 mg intranasal Q2M PRN (Reason: opioid overdose) Qty: 1 0RF Rx Instructions: spray 1 dose into ONE nostril; alternate nostrils w each dose until help arrives Changed clonazepam 0.5 mg tablet 0.5 mg PO TID PRN (Reason: anxiety) Qty: 42 0RF prazosin 1 mg capsule 1 mg PO BID PRN (Reason: as directed) Qty: 28 0RF Stand Alone Forms: Patient Portal Discharge page
--- NOTE | 2023-08-17 23:06 | P.PNPSP_ITS ---
Subjective Subjective Date of Service: 08/17/23 Reason For Visit: depression Interim History: Doing better . Has tolerated the increase in Zyprexa to 5 mg qhs since Thursday. She does note a little tingling in her fingertips, but I suspect that may be related to the topiramate that she also just started on at 25 mg BID. I suggest she could back down off the AM topiramate for a few days and then try increasing the dose again, but she feels it is already starting to resolve and feels inc lined to continue at the present dose. She has also held the AM risperidone and has implemented a 2.5 mg Zyprexa in hamzah AM, although seemed a little less certain if she did this yesterday, or just started on this AM change today. She is pleased to report that she has not had any SI thoughts today that's good . She reports also sleeping great. Appetite and energy are intact. Patient also noted smoking less, feeling less compelled to smoke particularly the first portion of the day - patient pre-contemplative but hoping Topemax continues to be helpful Medication Compliance: Yes Side effects from medications: Yes (as noted) Attending Groups: Yes Review of Systems Acute medical concerns: No Mental Status Exam Mental Status Exam Narrative: Alert, oriented, in no acute distress. Calm, cooperative, engaged. No psychomotor agitation or neurovegetative retardation. Eye contact maintained. Mood better less anxious, less depressed, affect variable, brighter, mood congruent, no lability or tearfulness noted. Speech normal. Thought process linear, coherent. Thought content related to stressors, denies any helplessness, hopelessness or SI.? No aggressive ideation or HI. No paranoia or delusional content elicited. No evidence of psychosis. Insight and judgment fair but adequate. Diagnostics Vital Signs (24Hr): BMI result Body Mass Index 32.6 Assessment & Plan Assessment & Plan (1) Bipolar I disorder, current or most recent episode manic, in partial remission with mixed features: Status: Acute Code(s): F31.73 - Bipolar disorder, in partial remission, most recent episode manic (2) Post-traumatic stress disorder, chronic: Status: Acute Code(s): F43.12 - Post-traumatic stress disorder, chronic (3) Opioid use disorder, moderate, in early remission, dependence: Status: Acute Code(s): F11.21 - Opioid dependence, in remission (4) Nicotine dependence: Status: Acute Code(s): F17.200 - Nicotine dependence, unspecified, uncomplicated Plan continue olanzapine 2.5 mg qAM continue olanzapine 5 mg qHS encouraged to utilize 2.5 mg qd PRN agitation, herson continue topiramate 25 mg BID continue metformin 250 mg BID continue risperidone 0.25 mg qhs (will plan to discontinue) continue Lamictal 225 mg BID continue vilazodone 40 mg daily continue clonazepam 0.5 mg TID PRN continue prazosin BID prn continue Suboxone 4-2 mg/day discussed smoking cessation, patient pre-contemplative but hoping Topemax continues to be helpful pending lab orders UDS, EKG as indicated continue to monitor Patient educated on: diagnosis and medication risk/benefits Informed Consent: understands Reason for contiued partial hosp. stay Substantial Risk for: rapid decompensation and med/psych decompensation Certification I certify that partial hospital treatment is medically necessary due to the symptoms and problems resulting from the patient's mental illness and the failure to treat the patient at the partial hospital level of care would likely result in the patient requiring inpatient psychiatric care which could not be prevented at a less intensive level of care. Total time managing care of this patient today __30__ minutes. Discharge Plan Discharge Attending provider: Deb Luis Medications: New olanzapine 5 mg tablet 2.5 - 5 mg PO BEDTIME Qty: 20 0RF topiramate 25 mg tablet 25 mg PO BID Qty: 30 0RF metformin 500 mg tablet 250 mg PO BID Qty: 30 0RF Continued lamotrigine 200 mg tablet 200 mg PO BID 90 Days Qty: 180 0RF lamotrigine 25 mg tablet 50 mg PO BID 90 Days Qty: 360 0RF vilazodone 40 mg tablet 40 mg PO DAILY 90 Days Qty: 90 0RF nicotine 21 mg/24 hr patch 24 hour 1 patch transdermal DAILY Qty: 28 0RF nicotine 14 mg/24 hr patch 24 hour 1 patch transdermal DAILY Qty: 28 0RF risperidone 0.25 mg tablet 0.25 - 0.5 mg PO BID Qty: 60 4RF naloxone [Narcan] 4 mg/actuation spray,non-aerosol 4 mg intranasal Q2M PRN (Reason: opioid overdose) Qty: 1 0RF Rx Instructions: spray 1 dose into ONE nostril; alternate nostrils w each dose until help arrives Changed clonazepam 0.5 mg tablet 0.5 mg PO TID PRN (Reason: anxiety) Qty: 42 0RF prazosin 1 mg capsule 1 mg PO BID PRN (Reason: as directed) Qty: 28 0RF No Action buprenorphine-naloxone [Suboxone] 2-0.5 mg film 1 film buccal BID Qty: 14 0RF Stand Alone Forms: Patient Portal Discharge page
--- NOTE | 2023-08-19 16:48 | HO.PHP ---
at roughly 1:30pm health technical writer and pt met to complete a release of information for [facility] and to complete the online referral for med provider services. The referral was submitted. Pt shared with health technical writer how she continues to struggle with intense fluctuating moods and difficulty remembering parts of her days when overcome with emotions. Pt stated she spoke with her therapist about it yesterday and will request to speak with the provider tomorrow. Pt reports she also has fluctuating sleep but slept better last night.
[2023-08-20 09:13] VITALS: BP 156/92; PULSE 88
--- NOTE | 2023-08-21 17:04 | PM.EVENT ---
Event Note Date of Service: 08/23/23 Event Note: Spoke with patient by phone. She had called out of program today and did not attend. She tells me she was feeling really depressed and got overwhelmed . Has not been giving her self enough space or enough of a break Havent been able to ground herself. Had trouble sleeping last night, mood still quite labile, feeling emotionally unstable, high anxiety. Getting confused and losing track of time. I was saying it was March the other day and says she also didnt realize it is Thursday. SHe may be dissociating. She has been starting therapy twice a week, which also she says is helpful but also triggering, and is spending time on social media. She has been missing doses of medication and we problem solve ways to improve consistency Time Spent With Patient Time: Total time managing care of this patient today __20__ minutes.
--- NOTE | 2023-08-25 21:01 | P.PNPSP_ITS ---
Subjective Subjective Date of Service: 08/25/23 Reason For Visit: depression Interim History: Overall some improvements in mood, though change has been slow with Zyprexa at 15 mg/d total. Has been having periods of the day where talking faster and trying to do too many things at once. She notes that her mother (who's a nurse) has been keeeping an eye on her although her mom says she can be a handful with all the activity and talking. She is still get started on carbamazepine 2 days ago and already notices after an hour I'm calming down . Feels the carbamazepine is more noticable so far than the Zyprexa in terms of stability. Is currently just on starting dose 200 mg in afternoon. Side effects of dry mouth, not that bad denies any other SE. Would like to continue to titrate dose. She also got a pill organizer like we discussed earlier in the week and says this helps with keeping her meds organzied and with compliance. She denies any SI, HI, AH, VH. Medication Compliance: Yes Side effects from medications: No Attending Groups: Yes Review of Systems Acute medical concerns: No Mental Status Exam Mental Status Exam Narrative: Alert, oriented, in no acute distress. Calm, cooperative, engaged. No psychomotor agitation or neurovegetative retardation. Eye contact maintained. Mood better less anxious, less depressed, affect variable, brighter, mood congruent, no lability or tearfulness noted. Speech normal. Thought process linear, coherent. Thought content related to stressors, denies any helplessness, hopelessness or SI.? No aggressive ideation or HI. No paranoia or delusional content elicited. No evidence of psychosis. Insight and judgment fair but adequate. Diagnostics Vital Signs (24Hr): BMI result Body Mass Index 32.6 Assessment & Plan Assessment & Plan (1) Bipolar I disorder, current or most recent episode manic, in partial remission with mixed features: Status: Acute Code(s): F31.73 - Bipolar disorder, in partial remission, most recent episode manic (2) Post-traumatic stress disorder, chronic: Status: Acute Code(s): F43.12 - Post-traumatic stress disorder, chronic (3) Opioid use disorder, moderate, in early remission, dependence: Status: Acute Code(s): F11.21 - Opioid dependence, in remission (4) Nicotine dependence: Status: Acute Code(s): F17.200 - Nicotine dependence, unspecified, uncomplicated Plan increase Tegretol XR to 400 mg/day (split 200 mg BID for 2 days then increase to 200mg/ 400 mg) continue olanzapine 5 mg qd (split 2.5 mg qAM, 2.5 q midday) continue olanzapine 10 mg qHS (not utilizing olanzapine 2.5 mg qd PRN agitation, herson) continue Viibryd 30 mg qd continue topiramate 25 mg BID continue metformin 250 mg BID continue risperidone 0.25 mg qhs (will plan to discontinue) continue Lamictal 225 mg BID continue vilazodone 40 mg daily continue clonazepam 0.5 mg TID PRN continue prazosin BID prn continue Suboxone 4-2 mg/day discussed smoking cessation, patient pre-contemplative but hoping Topemax continues to be helpful pending lab orders UDS, EKG as indicated continue to monitor Patient educated on: diagnosis, medication risk/benefits, substance abuse and therapeutic strategies Informed Consent: understands Reason for contiued partial hosp. stay Substantial Risk for: harm to self, inability to function, rapid decompensation and med/psych decompensation Certification I certify that partial hospital treatment is medically necessary due to the symptoms and problems resulting from the patient's mental illness and the failure to treat the patient at the partial hospital level of care would likely result in the patient requiring inpatient psychiatric care which could not be prevented at a less intensive level of care. Total time managing care of this patient today __30__ minutes. Discharge Plan Discharge Attending provider: Deb Luis Medications: New topiramate 25 mg tablet 25 mg PO BID Qty: 30 0RF metformin 500 mg tablet 250 mg PO BID Qty: 30 0RF olanzapine 10 mg tablet 10 mg PO BEDTIME 14 Days Qty: 14 0RF olanzapine 5 mg tablet 5 mg PO BID 14 Days Qty: 28 0RF Rx Instructions: 1 tablet po daily in AM; 1 tablet po daily PRN agitation, insomnia carbamazepine [Tegretol XR] 200 mg tablet extended release 12 hr 200 mg PO BID Qty: 20 0RF vilazodone 20 mg tablet 30 mg PO DAILY 30 Days Qty: 45 0RF Rx Instructions: must administer with a meal/food carbamazepine 400 mg tablet extended release 12 hr 400 mg PO .QHS 14 Days Qty: 14 0RF Continued lamotrigine 200 mg tablet 200 mg PO BID 90 Days Qty: 180 0RF lamotrigine 25 mg tablet 50 mg PO BID 90 Days Qty: 360 0RF vilazodone 40 mg tablet 40 mg PO DAILY 90 Days Qty: 90 0RF nicotine 21 mg/24 hr patch 24 hour 1 patch transdermal DAILY Qty: 28 0RF nicotine 14 mg/24 hr patch 24 hour 1 patch transdermal DAILY Qty: 28 0RF naloxone [Narcan] 4 mg/actuation spray,non-aerosol 4 mg intranasal Q2M PRN (Reason: opioid overdose) Qty: 1 0RF Rx Instructions: spray 1 dose into ONE nostril; alternate nostrils w each dose until help arrives Changed clonazepam 0.5 mg tablet 0.5 mg PO TID PRN (Reason: anxiety) Qty: 42 0RF prazosin 1 mg capsule 1 mg PO BID PRN (Reason: as directed) Qty: 28 0RF Discontinued risperidone 0.25 mg tablet 0.25 - 0.5 mg PO BID Qty: 60 4RF No Action lisinopril 5 mg tablet 5 mg PO DAILY Qty: 30 3RF nicotine 10 mg cartridge 1 inh inhalation Q4-6H PRN (Reason: nicotine cravings) Qty: 168 0RF buprenorphine-naloxone [Suboxone] 2-0.5 mg film 1 film buccal BID Qty: 14 0RF Stand Alone Forms: Patient Portal Discharge page Patient Education: Bipolar Disorder (DC) Print Language: Croatian
[2023-08-26 09:19] VITALS: BP 159/106; PULSE 101
--- NOTE | 2023-08-26 14:47 | HO.PHP ---
At roughly 12:00 pt left group and was brought to newspaper writer by support group manager Breanne for support. Pt reported she was triggered in group by 2 peers who pt stated laughed at her when she shared her plans for later which were to go for a walk with her friend and her dog. Isabelle said she asked them why they laughed and said she felt they did not make it clear why. Pt was tearful and adamant they were intentionally laughing at her so felt she can not go back into group today. With support from newspaper writer and with prompts to reason the situation, pt acknowledged there could be another reason why she they laughed and she agreed she would not leave for the day but will eat her lunch outside, take her medications then see how she feels at the start of the 1:00 group. At 1:00, Pt reported to staff that she felt better and spoke with her peers and resolved the matter. During the group, pt was brighter, attentive and socially engaged with peers.
--- NOTE | 2023-08-27 16:21 | HO.PHP ---
At roughly 12:00 typewriter tester met with pt to call [facility] to check on status of referral. They replied that they are not accepting referrals for Med providers at this time. Quality Control Clerk and pt attempted 2 more locations, [facility] in [place] who also responded saying they do not have Med provider services, and [facility] in [place], but they do not accept [employer] insurance. Pt Asked to take a break, will return with a completed referral packet for [facility] to submit via fax tomorrow. Pt is scheduled for discharge tomorrow. Pt reassured that [facility] staff will continue to help her locate a med provider and [facility] med provider will make sure she has medications until she finds one. Pt appreciative and also contributing in the search for a med provider. Pt works at [employer] and with [employer] so does not want services through either of them and pt's insurance is not accepted in many places.
--- NOTE | 2023-08-28 11:31 | HO.PHP ---
Isabelle explored with the clinician if she can help contact the comprehensive care program to see if they will help with being enrolled in there bridge program. [facility] staff member assisted with contacting the [facility]. The admin noted that she will ask Carmen and return the clinician's call. [facility] staff member was receptive. [facility] staff member also contacted Isabelle's insurance company requesting a list of providers that are in network for med management and OP therapy. Sweetie voiced that she will fax the forms over at the end of the business day. [facility] staff member was receptive.
--- NOTE | 2023-08-28 21:47 | HO.PHPPROGNO ---
Subjective Subjective Date of Service: 08/28/23 Reason For Visit: depression Interim History: Patient seen for follow-up, anticipating discharge at the end of program today.? I'm a little excitable but it's okay, it's better She is taking Tegretol XR at 200 mg in am and 400 mg at night. SHe nights that she really likes the medication. My mom says I'm doing better she says it is perfect for the nighttime. I am sleeping, Marsha never slept so well, and I am still able to get up in the morning with no problem . Getting 8 hours of sleep, going to bed at 9pm and up at 5:30am. Fells rested. We reviewed her recent vitals with elevated BPs, she says she still hasn't started the lisinopril is going to pick it up, start on it today and follow up with her PCP. No other acute issues or concerns. Medication compliant, medications well-tolerated. Denies any adverse effects.? Mood is stable.? Denies any hopelessness or SI. Denies thoughts of harming self or others at this time. Denies any aggressive ideation or HI. Denies any paranoia or AH or VH. Sleep, appetite, energy more steady. Mental Status Exam Mental Status Exam Narrative: Alert, oriented, in no acute distress. Calm, cooperative, engaged. No psychomotor agitation or neurovegetative retardation. Eye contact maintained. Mood better less anxious, less depressed, affect variable, brighter, mood congruent, no lability or tearfulness noted. Speech normal. Thought process linear, coherent. Thought content related to stressors, denies any helplessness, hopelessness or SI.? No aggressive ideation or HI. No paranoia or delusional content elicited. No evidence of psychosis. Insight and judgment fair but adequate. Diagnostics Vital Signs (24Hr): BMI result Body Mass Index 32.6 Assessment & Plan Assessment & Plan (1) Bipolar I disorder, current or most recent episode manic, in partial remission with mixed features: Status: Acute Code(s): F31.73 - Bipolar disorder, in partial remission, most recent episode manic (2) Post-traumatic stress disorder, chronic: Status: Acute Code(s): F43.12 - Post-traumatic stress disorder, chronic (3) Opioid use disorder, moderate, in early remission, dependence: Status: Acute Code(s): F11.21 - Opioid dependence, in remission (4) Nicotine dependence: Status: Acute Code(s): F17.200 - Nicotine dependence, unspecified, uncomplicated Plan continue Tegretol XR 600 mg/day (split 200mg in AM/ 400 mg in PM) continue olanzapine 5 mg qd (split 2.5 mg qAM, 2.5 q midday) Discharge from [facility] continue olanzapine 10 mg qHS continue Viibryd at 20 mg qd continue topiramate 25 mg BID continue metformin 250 mg BID continue risperidone 0.25 mg qhs (will plan to discontinue) continue Lamictal 225 mg BID continue clonazepam 0.5 mg TID PRN continue prazosin BID prn continue Suboxone 4-2 mg/day Refills sent to pharmacy Will defer further medication management to outpatient provider *Safety plan reviewed *Discharge Diagnoses reviewed with patient, as well as treatment course, discharge plan (including medication regime, medication management, potential side effects) as well as treatment rationale were also revisited *If patient wishes, they are welcome to have their outpatient provider reach out to me for any further questions or clarification as pertains to this patient?s clinical care/treatment during their stay at [facility] (contact information provided to patient) Certification I certify that partial hospital treatment is medically necessary due to the symptoms and problems resulting from the patient's mental illness and the failure to treat the patient at the partial hospital level of care would likely result in the patient requiring inpatient psychiatric care which could not be prevented at a less intensive level of care. Total time managing care of this patient today ____ minutes. Discharge Plan Discharge Attending provider: Deb Luis Medications: New olanzapine 5 mg tablet See Rx Instructions .ROUTE .COMPLEX Qty: 60 0RF Rx Instructions: take 1/2 tablet twice daily (in AM and lunch) and one tablet daily PRN agitation, insomnia Continued lamotrigine 200 mg tablet 200 mg PO BID 90 Days Qty: 180 0RF lamotrigine 25 mg tablet 50 mg PO BID 90 Days Qty: 360 0RF nicotine 21 mg/24 hr patch 24 hour 1 patch transdermal DAILY Qty: 28 0RF nicotine 14 mg/24 hr patch 24 hour 1 patch transdermal DAILY Qty: 28 0RF lisinopril 5 mg tablet 5 mg PO DAILY Qty: 30 3RF nicotine 10 mg cartridge 1 inh inhalation Q4-6H PRN (Reason: nicotine cravings) Qty: 168 0RF naloxone [Narcan] 4 mg/actuation spray,non-aerosol 4 mg intranasal Q2M PRN (Reason: opioid overdose) Qty: 1 0RF Rx Instructions: spray 1 dose into ONE nostril; alternate nostrils w each dose until help arrives Changed clonazepam 0.5 mg tablet 0.5 mg PO TID PRN (Reason: anxiety) Qty: 42 0RF vilazodone 20 mg tablet 20 mg PO DAILY Qty: 30 0RF Rx Instructions: must administer with a meal/food prazosin 1 mg capsule 1 mg PO BID PRN (Reason: as directed) Qty: 30 0RF Discontinued vilazodone 40 mg tablet 40 mg PO DAILY 90 Days Qty: 90 0RF risperidone 0.25 mg tablet 0.25 - 0.5 mg PO BID Qty: 60 4RF No Action buprenorphine-naloxone 2-0.5 mg film 1 film buccal BID Qty: 60 0RF Rx Instructions: place 1 strip/tab under (each) side of tongue metformin 500 mg tablet 250 mg PO BID Qty: 30 0RF olanzapine 10 mg tablet 10 mg PO BEDTIME Qty: 30 0RF carbamazepine [Tegretol XR] 200 mg tablet extended release 12 hr 200 mg PO QAM Qty: 30 0RF carbamazepine 400 mg tablet extended release 12 hr 400 mg PO .QHS Qty: 30 0RF topiramate 25 mg tablet 25 mg PO BID 90 Days Qty: 180 0RF docusate sodium 50 mg capsule 50 mg PO BID Qty: 60 0RF Stand Alone Forms: Patient Portal Discharge page Patient Education: Bipolar Disorder (DC) Print Language: Malay
--- NOTE | 2023-09-04 14:25 | HO.PHP ---
[facility] staff member received a phone call from [facility] stating that they need my discharge summary not a list of the medication. [facility] staff member informed Michael from [facility] that my discharge summaries are typically not provided and would need to see if she is able to send that information. Octaviolynette was receptive and noted that they need more information if we are going to have her enroll in the program. [facility] staff member was receptive. [facility] staff member followed up with the Government Relations Analyst, who suggested I review with Isabelle and explore if she is okay with me providing that information. [facility] staff member was receptive and reviewed the discharge paperwork with Isabelle, in which she was in agreement to everything written and agreed that I could provide it to [facility] because she does not want to miss her appointment. [facility] staff member was receptive. [facility] staff member faxed over her discharge summary to [facility].
== END 2023-08-31 23:59 | disposition home or self-care (01) ==
LOC: HO.PHPA 13:15
PROVIDERS: Visit Provider Psychiatry & Neurology Psychiatry
DX: F31.73 Bipolar disorder, in partial remission, most recent episode manic (principal); F43.12 Post-traumatic stress disorder, chronic; G89.4 Chronic pain syndrome; F11.21 Opioid dependence, in remission; Z79.899 Other long term (current) drug therapy
CPT/HCPCS: 80307; 90791; 90853

== ENCOUNTER 2023-09-03 14:29 | Outpatient (AMB) | payer OTHER, SELFPAY ==
[2023-09-03 14:31] VITALS: BP 114/70; PULSE 89; O2SAT 98
--- NOTE | 2023-09-03 14:31 | A.OFFVISCC_ITS ---
Vital Signs 09/03/23 14:31 BP 114/70 Blood Pressure Location Lt brachial Position Sitting Pulse 89 Pulse Source Pulse Oximeter Pulse Oximetry (%) 98 Oxygen Delivery Method Room Air Intake Visit Reasons: MAT Allergies buspirone [From BuSpar] Allergy (Severe, Verified 09/03/23 14:34) Seizure gabapentin Allergy (Unknown, Verified 09/03/23 14:34) memory loss hydrocodone [Vicodin] Allergy (Unknown, Verified 09/03/23 14:34) Anaphylaxis lactose [LACTOSE] Allergy (Unknown, Verified 09/03/23 14:34) gi issues tramadol Adverse Reaction (Intermediate, Verified 09/03/23 14:34) hallucinations HPI HPI MAT: Details: Patient presents for MAT appointment States her last day of partial was on this past Thursday (08/27) States she has had some med changes that she believes are assisting her with coping with her emotions She has been set up by PHP with a psych prescriber and therapist specializing in Bipolar which she is very happy about Has been taking her suboxone 2mg BID and tolerating well Denies cravings HPI Comments Details: Patient presents for MAT visit [facility] Medical History (Updated 08/25/23 @ 14:16 by Rene Larsen MD) History of concussion History of hypercholesterolemia History of nephrolithiasis Hypertension Bipolar disorder control counseling At risk for diabetes mellitus Obesity Overflow stress urinary incontinence in female Posttraumatic stress disorder Seizure disorder Obsessive compulsive disorder Cyst near tailbone Surgical History History of surgical removal of pilonidal cyst History of lithotripsy Family History Father Chronic mental illness PCK (polycystic kidney disease) Hypothyroidism Post traumatic stress disorder (PTSD) Substance use disorder Mother Hyperthyroidism Post traumatic stress disorder (PTSD) Breast CA, Onset Age: 40 Other Mental health disorder Social History Household Members: Other Household Members Other:: My dog Housing: Apartment Are you a primary aged or disabled care worker to a significant other at home: No Do you presently have visiting nurse or other home services: No Alcohol intake: never Comment: Discharge date is August 28, 2023 Patient Tobacco Use Status: Current everyday Tobacco user Tobacco use type: Cigarette Cigarette Packs Per Day: 1 Cigarettes Per Day: 20 Years Smoked: 15 e-Cigarette/Vaping Use: Never Used Second Hand Smoke Exposure: Yes service: No Current occupational status: employed Cognitive needs: No Hearing needs: No Vision needs: No Female Reproductive History Menstrual Age of Menarche: 11 Review of Systems Const Reports as per HPI Physical Exam Const General: cooperative and no acute distress Resp Effort & Inspection: normal respiratory effort and able to speak in complete sentences Psych Appearance: grossly normal Mental Status: mental status grossly normal Speech and movement: Normal speech and movement present Affect: normal affect Attitude: cooperative Thought process: Normal thought process present Assessment & Plan Assessment & Plan (1) Opioid use disorder, moderate, in early remission, dependence: Code(s): F11.21 - Opioid dependence, in remission Category: Medical Plan: -Sunday pat reviewed -Next refill is for full month, she has been on leave and finding it difficult to pay for it weekly -Follow up 1 week Medications: New buprenorphine-naloxone 2-[address] 1 strip/tab under (each) side of tongue 1 film buccal BID 60 ea 0RF
== END 2023-09-03 14:56 | disposition home or self-care (01) ==
PROVIDERS: Visit Provider Nurse Practitioner Family
DX: F11.21 Opioid dependence, in remission (principal)
CPT/HCPCS: 99213

== ENCOUNTER → 2023-09-03 14:29 | Outpatient (BNVA) | payer OTHER, MEDICARE, SELFPAY | PROVIDERS: Visit Provider Nurse Practitioner Family | DX: Z51.81 Encounter for therapeutic drug level monitoring (principal) ==

== ENCOUNTER 2023-09-08 14:55 | Outpatient (AMB) | payer OTHER, SELFPAY ==
--- NOTE | 2023-09-08 14:59 | A.OFFVISCC_ITS ---
Vital Signs 09/08/23 15:05 BP 130/70 Blood Pressure Location Rt radial Position Sitting Respiration 22 H Pulse 98 Pulse Source Pulse Oximeter Pulse Oximetry (%) 98 Intake Visit Reasons: MAT Allergies buspirone [From BuSpar] Allergy (Severe, Verified 09/03/23 14:34) Seizure gabapentin Allergy (Unknown, Verified 09/03/23 14:34) memory loss hydrocodone [Vicodin] Allergy (Unknown, Verified 09/03/23 14:34) Anaphylaxis lactose [LACTOSE] Allergy (Unknown, Verified 09/03/23 14:34) gi issues tramadol Adverse Reaction (Intermediate, Verified 09/03/23 14:34) hallucinations HPI HPI MAT: Details: Patient presents for MAT appointment States she is doing good today Goes back to work next Has been tolerating suboxone 2mg BID well- no withdrawal symptoms or cravings Has intake with [facility] this week HPI Comments Details: Patient presents for MAT visit [facility] Medical History (Updated 08/25/23 @ 14:16 by Rene Larsen MD) History of concussion History of hypercholesterolemia History of nephrolithiasis Hypertension Bipolar disorder control counseling At risk for diabetes mellitus Obesity Overflow stress urinary incontinence in female Posttraumatic stress disorder Seizure disorder Obsessive compulsive disorder Cyst near tailbone Surgical History History of surgical removal of pilonidal cyst History of lithotripsy Family History Father Chronic mental illness PCK (polycystic kidney disease) Hypothyroidism Post traumatic stress disorder (PTSD) Substance use disorder Mother Hyperthyroidism Post traumatic stress disorder (PTSD) Breast CA, Onset Age: 40 Other Mental health disorder Social History Household Members: Other Household Members Other:: My dog Housing: Apartment Are you a primary care director rn to a significant other at home: No Do you presently have visiting nurse or other home services: No Alcohol intake: never Comment: Discharge date is August 28, 2023 Patient Tobacco Use Status: Current everyday Tobacco user Tobacco use type: Cigarette Cigarette Packs Per Day: 1 Cigarettes Per Day: 20 Years Smoked: 15 e-Cigarette/Vaping Use: Never Used Second Hand Smoke Exposure: Yes service: No Current occupational status: employed Cognitive needs: No Hearing needs: No Vision needs: No Female Reproductive History Menstrual Age of Menarche: 11 Review of Systems Const Reports as per HPI Physical Exam Vital Signs: Last Vital Signs Pulse 98 09/08/23 15:05 Resp 22 H 09/08/23 15:05 BP 130/70 09/08/23 15:05 Pulse Ox 98 09/08/23 15:05 Const General: cooperative and no acute distress Resp Effort & Inspection: normal respiratory effort and able to speak in complete sentences Psych Appearance: grossly normal Mental Status: mental status grossly normal Speech and movement: Normal speech and movement present Affect: normal affect Attitude: cooperative Thought process: Normal thought process present Assessment & Plan Assessment & Plan (1) Opioid use disorder, moderate, in early remission, dependence: Code(s): F11.21 - Opioid dependence, in remission Category: Medical Plan: -MAsspat reviewed -No refill needed at this time -Follow up 1 week
[2023-09-08 15:05] VITALS: BP 130/70; PULSE 98; RESP 22; O2SAT 98
== END 2023-09-08 15:32 | disposition home or self-care (01) ==
PROVIDERS: Visit Provider Nurse Practitioner Family
DX: F11.21 Opioid dependence, in remission (principal)
CPT/HCPCS: 99213

== ENCOUNTER → 2023-09-08 14:55 | Outpatient (BNVA) | payer OTHER, MEDICARE, SELFPAY | PROVIDERS: Visit Provider Nurse Practitioner Family | DX: Z51.81 Encounter for therapeutic drug level monitoring (principal) ==

== ENCOUNTER 2023-09-15 14:25 | Outpatient (AMB) | payer OTHER, SELFPAY ==
--- NOTE | 2023-09-15 14:25 | A.OFFVISCC_ITS ---
Vital Signs 09/15/23 14:27 BP 138/84 Blood Pressure Location Lt brachial Position Sitting Pulse 93 Pulse Source Pulse Oximeter Pulse Oximetry (%) 98 Oxygen Delivery Method Room Air Intake Visit Reasons: MAT Allergies buspirone [From BuSpar] Allergy (Severe, Verified 09/15/23 14:27) Seizure gabapentin Allergy (Unknown, Verified 09/15/23 14:27) memory loss hydrocodone [Vicodin] Allergy (Unknown, Verified 09/15/23 14:27) Anaphylaxis lactose [LACTOSE] Allergy (Unknown, Verified 09/15/23 14:27) gi issues tramadol Adverse Reaction (Intermediate, Verified 09/15/23 14:27) hallucinations HPI HPI MAT: Details: Patient presents for OUD treatment and follow up She has been doing well this week Exploring different modalities of self-care Has taken up drinking loose leaf tea because she feels it is grounding Goes back to work on , feels ready Her mom went to hospital today for kidney stones, she feels as though this is something that would have previously triggered her to use, she states she took her suboxone, and was able to navigate the situation without feeling cravings Has no recovery concerns HPI Comments Details: Patient presents for MAT visit [facility] Medical History (Updated 08/25/23 @ 14:16 by Rene Larsen MD) History of concussion History of hypercholesterolemia History of nephrolithiasis Hypertension Bipolar disorder control counseling At risk for diabetes mellitus Obesity Overflow stress urinary incontinence in female Posttraumatic stress disorder Seizure disorder Obsessive compulsive disorder Cyst near tailbone Surgical History History of surgical removal of pilonidal cyst History of lithotripsy Family History Father Chronic mental illness PCK (polycystic kidney disease) Hypothyroidism Post traumatic stress disorder (PTSD) Substance use disorder Mother Hyperthyroidism Post traumatic stress disorder (PTSD) Breast CA, Onset Age: 40 Other Mental health disorder Social History Household Members: Other Household Members Other:: My dog Housing: Apartment Are you a primary manager home healthcare to a significant other at home: No Do you presently have visiting nurse or other home services: No Alcohol intake: never Comment: Discharge date is August 28, 2023 Patient Tobacco Use Status: Current everyday Tobacco user Tobacco use type: Cigarette Cigarette Packs Per Day: 1 Cigarettes Per Day: 20 Years Smoked: 15 e-Cigarette/Vaping Use: Never Used Second Hand Smoke Exposure: Yes service: No Current occupational status: employed Cognitive needs: No Hearing needs: No Vision needs: No Female Reproductive History Menstrual Age of Menarche: 11 Review of Systems Const Reports as per HPI Physical Exam Vital Signs: Last Vital Signs Pulse 93 09/15/23 14:27 BP 138/84 09/15/23 14:27 Pulse Ox 98 09/15/23 14:27 Oxygen Delivery Method Room Air 09/15/23 14:27 Const General: cooperative and no acute distress Resp Effort & Inspection: normal respiratory effort and able to speak in complete sentences Psych Appearance: grossly normal Mental Status: mental status grossly normal Speech and movement: Normal speech and movement present Affect: normal affect Attitude: cooperative Thought process: Normal thought process present Assessment & Plan Assessment & Plan (1) Opioid use disorder, moderate, in early remission, dependence: Code(s): F11.21 - Opioid dependence, in remission Category: Medical Plan: -MAsspat reviewed -No refill needed at this time -Follow up 1 week
[2023-09-15 14:27] VITALS: BP 138/84; PULSE 93; O2SAT 98
== END 2023-09-15 14:52 | disposition home or self-care (01) ==
PROVIDERS: Visit Provider Nurse Practitioner Family
DX: F11.21 Opioid dependence, in remission (principal)
CPT/HCPCS: 99213

== ENCOUNTER → 2023-09-15 14:25 | Outpatient (BNVA) | payer OTHER, MEDICARE, SELFPAY | PROVIDERS: Visit Provider Nurse Practitioner Family | DX: Z51.81 Encounter for therapeutic drug level monitoring (principal) ==

== ENCOUNTER 2023-10-07 15:41 | Outpatient (AMB) | payer OTHER, SELFPAY ==
--- NOTE | 2023-10-07 15:42 | A.OFFVISCC_ITS ---
Vital Signs 10/07/23 15:46 BP 138/82 Blood Pressure Location Lt brachial Position Sitting Pulse 98 Pulse Source Pulse Oximeter Pulse Oximetry (%) 100 Oxygen Delivery Method Room Air Intake Visit Reasons: MAT Visit Allergies buspirone [From BuSpar] Allergy (Severe, Verified 09/15/23 14:27) Seizure gabapentin Allergy (Unknown, Verified 09/15/23 14:27) memory loss hydrocodone [Vicodin] Allergy (Unknown, Verified 09/15/23 14:27) Anaphylaxis lactose [LACTOSE] Allergy (Unknown, Verified 09/15/23 14:27) gi issues tramadol Adverse Reaction (Intermediate, Verified 09/15/23 14:27) hallucinations HPI HPI MAT Visit: Details: Patient presents for follow up currently prescribed suboxone 2mg TID Back to work --feels supported at her job, however increase in stressors related to client challenges Increase in cravings --has been taking suboxone as ordered, feels it is helpful Some discussion around managing symptoms in the moment [facility] Medical History (Updated 09/21/23 @ 08:40 by Rene Larsen MD) Cyst near tailbone Obesity Pilonidal cyst Dysuria Bipolar 2 disorder, major depressive episode Actinic keratosis Breast cancer screening by mammogram BCP ( control pills) initiation Anovulatory amenorrhea Fibroids Endometrial polyp Abnormal uterine bleeding Endocervical polyp Shoulder pain, right Hypertension Low back pain radiating to lower extremity Hordeolum Abnormal facial hair Depressive disorder Bipolar 2 disorder, major depressive episode Bipolar disorder, most recent episode manic History of concussion History of hypercholesterolemia History of nephrolithiasis Hypertension Bipolar disorder control counseling At risk for diabetes mellitus Overflow stress urinary incontinence in female Posttraumatic stress disorder Seizure disorder Obsessive compulsive disorder Surgical History History of surgical removal of pilonidal cyst History of lithotripsy Family History Father Chronic mental illness PCK (polycystic kidney disease) Hypothyroidism Post traumatic stress disorder (PTSD) Substance use disorder Mother Hyperthyroidism Post traumatic stress disorder (PTSD) Breast CA, Onset Age: 40 Other Mental health disorder Social History Household Members: Other Household Members Other:: My dog Housing: Apartment Are you a primary personal caregiver to a significant other at home: No Do you presently have visiting nurse or other home services: No Alcohol intake: never Comment: Discharge date is August 28, 2023 Patient Tobacco Use Status: Current everyday Tobacco user Tobacco use type: Cigarette Cigarette Packs Per Day: 1 Cigarettes Per Day: 20 Years Smoked: 15 e-Cigarette/Vaping Use: Never Used Second Hand Smoke Exposure: Yes service: No Current occupational status: employed Cognitive needs: No Hearing needs: No Vision needs: No Female Reproductive History Menstrual Age of Menarche: 11 Review of Systems Const Reports as per HPI Physical Exam Vital Signs: Last Vital Signs Pulse 98 10/07/23 15:46 BP 138/82 10/07/23 15:46 Pulse Ox 100 10/07/23 15:46 Oxygen Delivery Method Room Air 10/07/23 15:46 Const General: cooperative, healthy appearing, anxious and well groomed Assessment & Plan Assessment & Plan (1) Opioid use disorder, moderate, in early remission, dependence: Code(s): F11.21 - Opioid dependence, in remission Category: Medical Plan: * continue suboxone at current dose * relapse prevention discussion * follow up 2 weeks Medications: New docusate sodium 50 mg PO BID 60 caps 0RF
[2023-10-07 15:46] VITALS: BP 138/82; PULSE 98; O2SAT 100
== END 2023-10-07 16:14 | disposition home or self-care (01) ==
LOC: HO.HCC 15:41
PROVIDERS: Visit Provider Nurse Practitioner Psychiatric/Mental Health
DX: F11.21 Opioid dependence, in remission (principal)
CPT/HCPCS: 99213

== ENCOUNTER → 2023-10-07 15:41 | Outpatient (BNVA) | payer OTHER, MEDICARE, SELFPAY | PROVIDERS: Visit Provider Nurse Practitioner Psychiatric/Mental Health ==

== ENCOUNTER 2023-10-22 15:49 | Outpatient (AMB) | payer OTHER, SELFPAY ==
--- NOTE | 2023-10-22 16:38 | A.OFFVISCC_ITS ---
Intake Visit Reasons: MAT Visit Allergies buspirone [From BuSpar] Allergy (Severe, Verified 09/15/23 14:27) Seizure gabapentin Allergy (Unknown, Verified 09/15/23 14:27) memory loss hydrocodone [Vicodin] Allergy (Unknown, Verified 09/15/23 14:27) Anaphylaxis lactose [LACTOSE] Allergy (Unknown, Verified 09/15/23 14:27) gi issues tramadol Adverse Reaction (Intermediate, Verified 09/15/23 14:27) hallucinations HPI HPI MAT Visit: Details: Patient presents for MAT appointment States she has been back to work for 4 weeks now Feels as though she has become more uncomfortable at work for various reasons and is thinking of getting a different job Feels as though she has been having more cravings, starting to question if her dose isn't enough, feels as though she would like to try using her coping techniques to counteract the cravings before a dose increase discussion Attending a class through [facility] tomorrow that she is excited about HPI Comments Details: Patient presents for MAT visit [facility] Medical History (Updated 09/21/23 @ 08:40 by Rene Larsen MD) Cyst near tailbone Obesity Pilonidal cyst Dysuria Bipolar 2 disorder, major depressive episode Actinic keratosis Breast cancer screening by mammogram BCP ( control pills) initiation Anovulatory amenorrhea Fibroids Endometrial polyp Abnormal uterine bleeding Endocervical polyp Shoulder pain, right Hypertension Low back pain radiating to lower extremity Hordeolum Abnormal facial hair Depressive disorder Bipolar 2 disorder, major depressive episode Bipolar disorder, most recent episode manic History of concussion History of hypercholesterolemia History of nephrolithiasis Hypertension Bipolar disorder control counseling At risk for diabetes mellitus Overflow stress urinary incontinence in female Posttraumatic stress disorder Seizure disorder Obsessive compulsive disorder Surgical History History of surgical removal of pilonidal cyst History of lithotripsy Family History Father Chronic mental illness PCK (polycystic kidney disease) Hypothyroidism Post traumatic stress disorder (PTSD) Substance use disorder Mother Hyperthyroidism Post traumatic stress disorder (PTSD) Breast CA, Onset Age: 40 Other Mental health disorder Social History Household Members: Other Household Members Other:: My dog Housing: Apartment Are you a primary home health care coordinator to a significant other at home: No Do you presently have visiting nurse or other home services: No Alcohol intake: never Comment: Discharge date is August 28, 2023 Patient Tobacco Use Status: Current everyday Tobacco user Tobacco use type: Cigarette Cigarette Packs Per Day: 1 Cigarettes Per Day: 20 Years Smoked: 15 e-Cigarette/Vaping Use: Never Used Second Hand Smoke Exposure: Yes service: No Current occupational status: employed Cognitive needs: No Hearing needs: No Vision needs: No Female Reproductive History Menstrual Age of Menarche: 11 Review of Systems Const Reports as per HPI Physical Exam Const General: cooperative and no acute distress Resp Effort & Inspection: normal respiratory effort and able to speak in complete sentences Psych Appearance: grossly normal Mental Status: mental status grossly normal Speech and movement: Normal speech and movement present Affect: normal affect Attitude: cooperative Thought process: Normal thought process present Assessment & Plan Assessment & Plan (1) Opioid use disorder, moderate, in early remission, dependence: Code(s): F11.21 - Opioid dependence, in remission Category: Medical Plan: -MAss pat reviewed -No refill needed at this time -Plan to revisit cravings in 1 week, encouraged patient to try and note what triggers her cravings this week -Follow up 1 week
== END 2023-10-22 16:27 | disposition home or self-care (01) ==
LOC: HO.HCC 15:49
PROVIDERS: Visit Provider Nurse Practitioner Family
DX: F11.21 Opioid dependence, in remission (principal)
CPT/HCPCS: 99213

== ENCOUNTER → 2023-10-22 15:49 | Outpatient (BNVA) | payer OTHER, MEDICARE, SELFPAY | PROVIDERS: Visit Provider Nurse Practitioner Family ==

== ENCOUNTER 2023-10-29 15:41 | Outpatient (AMB) | payer OTHER, SELFPAY ==
[2023-10-29 15:57] VITALS: PULSE 99; O2SAT 98
--- NOTE | 2023-10-29 15:57 | MHC.AM.SUB ---
Vital Signs 10/29/23 15:57 Blood Pressure Location Lt brachial Position Sitting Pulse 99 Pulse Source Pulse Oximeter Pulse Oximetry (%) 98 Intake Visit Reasons: MAT Visit Allergies buspirone [From BuSpar] Allergy (Severe, Verified 09/15/23 14:27) Seizure gabapentin Allergy (Unknown, Verified 09/15/23 14:27) memory loss hydrocodone [Vicodin] Allergy (Unknown, Verified 09/15/23 14:27) Anaphylaxis lactose [LACTOSE] Allergy (Unknown, Verified 09/15/23 14:27) gi issues tramadol Adverse Reaction (Intermediate, Verified 09/15/23 14:27) hallucinations HPI HPI MAT Visit: Details: Patient presents for MAT appointment Reports she has been passing a kidney stone since Thursday Is being followed by urology and has already seen her urologist Reports they offered her narcotics for her pain but she did not feel as though she could take them, she felt as though it would effect her sobriety and did not trust herself with them Reports she has had an increase in cravings over the past few weeks [facility] Medical History (Updated 09/21/23 @ 08:40 by Rene Larsen MD) Cyst near tailbone Obesity Pilonidal cyst Dysuria Bipolar 2 disorder, major depressive episode Actinic keratosis Breast cancer screening by mammogram BCP ( control pills) initiation Anovulatory amenorrhea Fibroids Endometrial polyp Abnormal uterine bleeding Endocervical polyp Shoulder pain, right Hypertension Low back pain radiating to lower extremity Hordeolum Abnormal facial hair Depressive disorder Bipolar 2 disorder, major depressive episode Bipolar disorder, most recent episode manic History of concussion History of hypercholesterolemia History of nephrolithiasis Hypertension Bipolar disorder control counseling At risk for diabetes mellitus Overflow stress urinary incontinence in female Posttraumatic stress disorder Seizure disorder Obsessive compulsive disorder Surgical History History of surgical removal of pilonidal cyst History of lithotripsy Family History Father Chronic mental illness PCK (polycystic kidney disease) Hypothyroidism Post traumatic stress disorder (PTSD) Substance use disorder Mother Hyperthyroidism Post traumatic stress disorder (PTSD) Breast CA, Onset Age: 40 Other Mental health disorder Social History Household Members: Other Household Members Other:: My dog Housing: Apartment Are you a primary animal care service worker to a significant other at home: No Do you presently have visiting nurse or other home services: No Alcohol intake: never Comment: Discharge date is August 28, 2023 Patient Tobacco Use Status: Current everyday Tobacco user Tobacco use type: Cigarette Cigarette Packs Per Day: 1 Cigarettes Per Day: 20 Years Smoked: 15 e-Cigarette/Vaping Use: Never Used Second Hand Smoke Exposure: Yes service: No Current occupational status: employed Cognitive needs: No Hearing needs: No Vision needs: No Female Reproductive History Menstrual Age of Menarche: 11 Review of Systems Const Reports as per HPI Reports as per HPI (bilateral flank pain) Physical Exam Vital Signs: Last Vital Signs Pulse 99 10/29/23 15:57 Pulse Ox 98 10/29/23 15:57 Const General: cooperative, anxious and diaphoretic Resp Effort & Inspection: normal respiratory effort Psych Appearance: grossly normal Mental Status: mental status grossly normal Speech and movement: Normal speech and movement present Affect: Anxious affect present Attitude: cooperative Assessment & Plan Assessment & Plan (1) Opioid use disorder, moderate, in early remission, dependence: Code(s): F11.21 - Opioid dependence, in remission Category: Medical Plan: -Mass pat reviewed -Increase suboxone to 2mg TID for cravings and pain -Follow up 1 week (2) Nephrolithiasis: Comment: s/p lithotripsy, August 2022 2 mm left renal calculi Code(s): N20.0 - Calculus of kidney Category: Medical Plan: -Start PO toradol, med education provided, educated her not to take any NSAIDs in addition to toradol, may take tylenol -Encouraged her to seek higher level of care should pain increase, or if she is unable to urinate Medications: New ketorolac maximum total duration of 5 days from all oral, intranasal, or parenteral formulations 10 mg PO Q6H PRN 20 tabs 0RF pain buprenorphine-naloxone 2-[address] 1 strip/tab under (each) side of tongue 1 film buccal TID 42 ea 0RF Discontinued buprenorphine-naloxone 2-[address] 1 strip/tab under (each) side of tongue Discontinued Reason: More recent result 1 film buccal BID 60 ea 0RF
== END 2023-10-29 16:22 | disposition home or self-care (01) ==
PROVIDERS: Visit Provider Nurse Practitioner Family
DX: F11.21 Opioid dependence, in remission (principal); N20.0 Calculus of kidney
CPT/HCPCS: 99213

== ENCOUNTER → 2023-10-29 15:41 | Outpatient (BNVA) | payer OTHER, MEDICARE, SELFPAY | PROVIDERS: Visit Provider Nurse Practitioner Family ==

== ENCOUNTER 2023-11-02 13:56 | Outpatient (AMB) | payer OTHER, SELFPAY ==
--- NOTE | 2023-11-02 14:12 | MHC.AM.SUB ---
Vital Signs 11/02/23 14:13 BP 130/70 Blood Pressure Location Lt brachial Position Sitting Respiration 19 Pulse 63 Pulse Source Pulse Oximeter Pulse Oximetry (%) 98 Intake Visit Reasons: MAT Visit Allergies buspirone [From BuSpar] Allergy (Severe, Verified 09/15/23 14:27) Seizure gabapentin Allergy (Unknown, Verified 09/15/23 14:27) memory loss hydrocodone [Vicodin] Allergy (Unknown, Verified 09/15/23 14:27) Anaphylaxis lactose [LACTOSE] Allergy (Unknown, Verified 09/15/23 14:27) gi issues tramadol Adverse Reaction (Intermediate, Verified 09/15/23 14:27) hallucinations HPI HPI MAT Visit: Details: Patient presents for MAT appointment States her cravings have decreased since dose increase of suboxone Feels as though she still has cravings, encouraged to keep a log of when she has cravings and how strong they are She reports she has not been experiencing flank pain for the last day or two, is waiting for a CT scan to see where the stone is HPI Comments Details: Patient presents for MAT visit [facility] Medical History (Updated 09/21/23 @ 08:40 by Rene Larsen MD) Cyst near tailbone Obesity Pilonidal cyst Dysuria Bipolar 2 disorder, major depressive episode Actinic keratosis Breast cancer screening by mammogram BCP ( control pills) initiation Anovulatory amenorrhea Fibroids Endometrial polyp Abnormal uterine bleeding Endocervical polyp Shoulder pain, right Hypertension Low back pain radiating to lower extremity Hordeolum Abnormal facial hair Depressive disorder Bipolar 2 disorder, major depressive episode Bipolar disorder, most recent episode manic History of concussion History of hypercholesterolemia History of nephrolithiasis Hypertension Bipolar disorder control counseling At risk for diabetes mellitus Overflow stress urinary incontinence in female Posttraumatic stress disorder Seizure disorder Obsessive compulsive disorder Surgical History History of surgical removal of pilonidal cyst History of lithotripsy Family History Father Chronic mental illness PCK (polycystic kidney disease) Hypothyroidism Post traumatic stress disorder (PTSD) Substance use disorder Mother Hyperthyroidism Post traumatic stress disorder (PTSD) Breast CA, Onset Age: 40 Other Mental health disorder Social History Household Members: Other Household Members Other:: My dog Housing: Apartment Are you a primary manager intensive care unit to a significant other at home: No Do you presently have visiting nurse or other home services: No Alcohol intake: never Comment: Discharge date is August 28, 2023 Patient Tobacco Use Status: Current everyday Tobacco user Tobacco use type: Cigarette Cigarette Packs Per Day: 1 Cigarettes Per Day: 20 Years Smoked: 15 e-Cigarette/Vaping Use: Never Used Second Hand Smoke Exposure: Yes service: No Current occupational status: employed Cognitive needs: No Hearing needs: No Vision needs: No Female Reproductive History Menstrual Age of Menarche: 11 Review of Systems Const Reports as per HPI Physical Exam Vital Signs: Last Vital Signs Pulse 63 11/02/23 14:13 Resp 19 11/02/23 14:13 BP 130/70 11/02/23 14:13 Pulse Ox 98 11/02/23 14:13 Const General: cooperative and no acute distress Resp Effort & Inspection: normal respiratory effort and able to speak in complete sentences Psych Appearance: grossly normal Mental Status: mental status grossly normal Speech and movement: Normal speech and movement present Affect: normal affect Attitude: cooperative Thought process: Normal thought process present Assessment & Plan Assessment & Plan (1) Opioid use disorder, moderate, in early remission, dependence: Code(s): F11.21 - Opioid dependence, in remission Category: Medical Plan: -Mass pat reviewed -No refill indicated at this time
[2023-11-02 14:13] VITALS: BP 130/70; PULSE 63; RESP 19; O2SAT 98
== END 2023-11-02 14:43 | disposition home or self-care (01) ==
PROVIDERS: Visit Provider Nurse Practitioner Family
DX: F11.21 Opioid dependence, in remission (principal)
CPT/HCPCS: 99213

== ENCOUNTER → 2023-11-02 13:56 | Outpatient (BNVA) | payer OTHER, MEDICARE, SELFPAY | PROVIDERS: Visit Provider Nurse Practitioner Family | DX: F11.20 Opioid dependence, uncomplicated (principal) ==

== ENCOUNTER → 2023-11-10 15:20 | Outpatient (BNVA) | payer OTHER, MEDICARE, SELFPAY | PROVIDERS: Visit Provider Nurse Practitioner Psychiatric/Mental Health ==

== ENCOUNTER 2023-12-08 15:47 | Outpatient (AMB) | payer OTHER, MEDICAID, SELFPAY ==
--- NOTE | 2023-12-08 15:55 | MHC.OFFVIS ---
Vital Signs 12/08/23 15:56 Height 5 ft 4 in Weight 188 lb BMI 32.3 BP 130/90 H Intake Visit Reasons: ? Fibroids Allergies buspirone [From BuSpar] Allergy (Severe, Verified 09/15/23 14:27) Seizure gabapentin Allergy (Unknown, Verified 09/15/23 14:27) memory loss hydrocodone [Vicodin] Allergy (Unknown, Verified 09/15/23 14:27) Anaphylaxis lactose [LACTOSE] Allergy (Unknown, Verified 09/15/23 14:27) gi issues lisinopril Adverse Reaction (Intermediate, Unverified 11/16/23 18:05) Diarrhea tramadol Adverse Reaction (Intermediate, Verified 09/15/23 14:27) hallucinations HPI Comments Details: The patient is presenting for follow-up from a visit to urologist regarding a 2 week history of pelvic pain. CT scan was done showed 2.2 cm fundal myoma and a 3 mm left nephrolithiasis nonobstructing. Since then the pain has resolved completely no associated pelvic discharge and or urinary or GI symptoms, no nausea or vomiting, no fever or chills. [facility] Medical History Cyst near tailbone Obesity Pilonidal cyst Dysuria Bipolar 2 disorder, major depressive episode Actinic keratosis Breast cancer screening by mammogram BCP ( control pills) initiation Anovulatory amenorrhea Fibroids Endometrial polyp Abnormal uterine bleeding Endocervical polyp Shoulder pain, right Hypertension Low back pain radiating to lower extremity Hordeolum Abnormal facial hair Depressive disorder Bipolar 2 disorder, major depressive episode Bipolar disorder, most recent episode manic History of concussion History of hypercholesterolemia History of nephrolithiasis Hypertension Bipolar disorder control counseling At risk for diabetes mellitus Overflow stress urinary incontinence in female Posttraumatic stress disorder Seizure disorder Obsessive compulsive disorder Surgical History History of surgical removal of pilonidal cyst History of lithotripsy Family History Father Chronic mental illness PCK (polycystic kidney disease) Hypothyroidism Post traumatic stress disorder (PTSD) Substance use disorder Mother Hyperthyroidism Post traumatic stress disorder (PTSD) Breast CA, Onset Age: 40 Other Mental health disorder Social History Household Members: Other Household Members Other:: My dog Housing: Apartment Are you a primary inpatient care manager rn to a significant other at home: No Do you presently have visiting nurse or other home services: No Alcohol intake: never Comment: Discharge date is August 28, 2023 Patient Tobacco Use Status: Current everyday Tobacco user Tobacco use type: Cigarette Cigarette Packs Per Day: 1 Cigarettes Per Day: 20 Years Smoked: 15 e-Cigarette/Vaping Use: Never Used Second Hand Smoke Exposure: Yes service: No Current occupational status: employed Cognitive needs: No Hearing needs: No Vision needs: No Female Reproductive History Menstrual Age of Menarche: 11 Review of Systems Const All systems reviewed & are unremarkable except as noted in HPI and below Physical Exam Vital Signs: Last Vital Signs BP 130/90 H 12/08/23 15:56 BMI result Body Mass Index 32.3 General: Yes no CVA tenderness External Female Exam: normal external appearance and normal appearance of the urethra Speculum Exam - Vagina: normal appearance of the vagina, normal palpation, no lesions and no masses Speculum Exam - Cervix: normal appearance of the cervix, normal palpation, no lesions, no masses and nontender Bimanual exam- vagina & uterus: normal bimanual exam, normal palpation, uterine size normal, normal palpation, uterine shape normal, No Cervical tenderness present and non-tender Bimanual Exam- Adnexa, other: normal adnexae Back/Spine/Pelvis Back: no CVA tenderness Results AMB Test Urine AMB Test Urine Negative Last Edit by Ashley Roman CMA on 12/08/23 16:20 Results Reviewed Results Reviewed: Laboratory Last Values [facility] Clinic Negative 12/08/23 16:19 Assessment & Plan Assessment & Plan (1) Myoma: Code(s): D21.9 - Benign neoplasm of connective and other soft tissue, unspecified Category: Medical Plan: Urine test done in the office was negative. GC/CT with BV panel collected. Discussed with the patient the findings on pelvic ultrasound & the risk of myosarcoma; discussed with the patient the options of treatment including expectant management versus hysterectomy; the pros and cons, risks benefits of each approach were discussed with the patient including the fact that in cases of myosarcoma, surgical treatment can lead to early diagnosis and positively affects the prognosis; after further discussion, the patient decided to proceed with expectant management. Will repeat pelvic ultrasound periodically. Instructions given to patient to call in case any of the following occurs: pressure symptoms, abnormal uterine bleeding, pelvic pain; and to schedule six-month ultrasound with a follow-up appointment . All questions answered, the patient verbalized understanding and agreed with the plan . Orders: Orders CT NG by PCR 12/08/23 R10.2 - Pelvic and perineal pain US pelvic and transvaginal 6 Months D21.9 - Benign neoplasm of connective and other soft tissue, unspecified Bacterial Vaginosis Panel 12/08/23 R10.2 - Pelvic and perineal pain AMB HCG Urine Test 12/08/23 Z32.02 - Encounter for test, result negative Coding Level of Care Code Est Pt Level 3 (22013) Diagnoses Myoma D21.9
[2023-12-08 15:56] VITALS: BP 130/90; BMI 32.3
== END 2023-12-08 16:18 | disposition home or self-care (01) ==
LOC: HO.HWS 15:47
PROVIDERS: Visit Provider Obstetrics & Gynecology
DX: D21.9 Benign neoplasm of connective and other soft tissue, unspecified (principal)
CPT/HCPCS: 99213

== ENCOUNTER 2023-12-08 15:47 | Outpatient (REF) | payer OTHER, MEDICARE, SELFPAY ==
[2023-12-10 07:13] LABS: CT PCR NOT DETECTED (Not Detect.); NG PCR NOT DETECTED (Not Detect.)
[2023-12-10 11:23] LABS: Bacterial Vaginosis PCR NEGATIVE (Negative); Candida Group PCR NOT DETECTED (Not Detect); Candida glab krusei PCR NOT DETECTED (Not Detect); Trichomonas vaginalis PCR NOT DETECTED (Not Detect)
== END 2023-12-08 15:48 | disposition home or self-care (01) ==
LOC: HO.LNP 15:47
PROVIDERS: Visit Provider Obstetrics & Gynecology
DX: R10.2 Pelvic and perineal pain (principal); D21.9 Benign neoplasm of connective and other soft tissue, unspecified
CPT/HCPCS: 0352U; 81025; 87491; 87591

== ENCOUNTER 2023-12-28 15:46 | Outpatient (AMB) | payer OTHER, MEDICAID, SELFPAY ==
--- NOTE | 2023-12-28 16:02 | MHC.AM.SUB ---
Intake Visit Reasons: MAT Allergies buspirone [From BuSpar] Allergy (Severe, Verified 09/15/23 14:27) Seizure gabapentin Allergy (Unknown, Verified 09/15/23 14:27) memory loss hydrocodone [Vicodin] Allergy (Unknown, Verified 09/15/23 14:27) Anaphylaxis lactose [LACTOSE] Allergy (Unknown, Verified 09/15/23 14:27) gi issues lisinopril Adverse Reaction (Intermediate, Unverified 11/16/23 18:05) Diarrhea tramadol Adverse Reaction (Intermediate, Verified 09/15/23 14:27) hallucinations Medication List - Last Reconciled 12/28/23 by Carmen Weller, LIGHT ARMORED VEHICLE OFFICER amlodipine 2.5 mg PO DAILY buprenorphine-naloxone 2-0.5 mg 1 film buccal TID carbamazepine ER (Tegretol XR) 200 mg PO QAM carbamazepine ER 200 mg PO .QHS clonazepam 0.5 mg PO TID PRN lamotrigine 200 mg PO BID 90 days lamotrigine 50 mg (2 x 25 mg) PO BID 90 days metformin 250 mg (1/2 x 500 mg) PO BID 90 days naloxone 4 mg/actuation (Narcan) 4 mg intranasal Q2M PRN nicotine 1 inh inhalation Q4-6H PRN olanzapine take 1/2 tablet twice daily (in AM and lunch) and one tablet daily PRN agitation, insomnia olanzapine 10 mg PO BEDTIME prazosin 1 mg PO BID PRN topiramate 25 mg PO BID 90 days HPI HPI MAT: Details: Patient presents for follow up Has been talking to a men's swim coach for 2 weeks meeting next week No issues related to recovery tolerating current suboxone dose [facility] Medical History Cyst near tailbone Obesity Pilonidal cyst Dysuria Bipolar 2 disorder, major depressive episode Actinic keratosis Breast cancer screening by mammogram BCP ( control pills) initiation Anovulatory amenorrhea Fibroids Endometrial polyp Abnormal uterine bleeding Endocervical polyp Shoulder pain, right Hypertension Low back pain radiating to lower extremity Hordeolum Abnormal facial hair Depressive disorder Bipolar 2 disorder, major depressive episode Bipolar disorder, most recent episode manic History of concussion History of hypercholesterolemia History of nephrolithiasis Hypertension Bipolar disorder control counseling At risk for diabetes mellitus Overflow stress urinary incontinence in female Posttraumatic stress disorder Seizure disorder Obsessive compulsive disorder Surgical History History of surgical removal of pilonidal cyst History of lithotripsy Family History Father Chronic mental illness PCK (polycystic kidney disease) Hypothyroidism Post traumatic stress disorder (PTSD) Substance use disorder Mother Hyperthyroidism Post traumatic stress disorder (PTSD) Breast CA, Onset Age: 40 Other Mental health disorder Social History Household Members: Other Household Members Other:: My dog Housing: Apartment Are you a primary child care worker to a significant other at home: No Do you presently have visiting nurse or other home services: No Alcohol intake: never Comment: Discharge date is August 28, 2023 Patient Tobacco Use Status: Current everyday Tobacco user Tobacco use type: Cigarette Cigarette Packs Per Day: 1 Cigarettes Per Day: 20 Years Smoked: 15 e-Cigarette/Vaping Use: Never Used Second Hand Smoke Exposure: Yes service: No Current occupational status: employed Cognitive needs: No Hearing needs: No Vision needs: No Female Reproductive History Menstrual Age of Menarche: 11 Review of Systems Const Reports as per HPI and Reports no additional complaints Physical Exam Const General: cooperative Psych Appearance: grossly normal Mental Status: mental status grossly normal Speech and movement: Normal speech and movement present Attitude: cooperative Assessment & Plan Assessment & Plan (1) Opioid use disorder, moderate, in early remission, dependence: Code(s): F11.21 - Opioid dependence, in remission Category: Medical Plan: continue suboxone at current dose follow up 4 weeks Medications: Changed From buprenorphine-naloxone 2-[address] 1 strip/tab under (each) side of tongue 1 film buccal TID 90 ea 0RF To buprenorphine-naloxone 2-0.5 mg 1 film buccal TID 90 ea 0RF Carmen Weller CNP From carbamazepine ER 400 mg PO .QHS 30 tabs 0RF To carbamazepine ER 200 mg PO .QHS Rene Larsen MD
== END 2023-12-28 16:25 | disposition home or self-care (01) ==
PROVIDERS: Visit Provider Nurse Practitioner Psychiatric/Mental Health
DX: F11.21 Opioid dependence, in remission (principal)
CPT/HCPCS: 99213

== ENCOUNTER → 2023-12-28 15:46 | Outpatient (BNVA) | payer OTHER, MEDICARE, SELFPAY | PROVIDERS: Visit Provider Nurse Practitioner Psychiatric/Mental Health ==

== ENCOUNTER 2024-01-25 16:35 | Outpatient (AMB) | payer OTHER, MEDICAID, SELFPAY ==
--- NOTE | 2024-01-25 16:44 | MHC.AM.SUB ---
Intake Visit Reasons: MAT Allergies buspirone [From BuSpar] Allergy (Severe, Verified 09/15/23 14:27) Seizure gabapentin Allergy (Unknown, Verified 09/15/23 14:27) memory loss hydrocodone [Vicodin] Allergy (Unknown, Verified 09/15/23 14:27) Anaphylaxis lactose [LACTOSE] Allergy (Unknown, Verified 09/15/23 14:27) gi issues lisinopril Adverse Reaction (Intermediate, Unverified 11/16/23 18:05) Diarrhea tramadol Adverse Reaction (Intermediate, Verified 09/15/23 14:27) hallucinations HPI HPI MAT: Details: Patient presents for follow up Currently prescribed Suboxone 2mg TID Moved [facility] week Recovering from Covid Reporting that she had an issue with her medications and was without her olanzipine for over a week All situated now. [facility] Medical History Cyst near tailbone Obesity Pilonidal cyst Dysuria Bipolar 2 disorder, major depressive episode Actinic keratosis Breast cancer screening by mammogram BCP ( control pills) initiation Anovulatory amenorrhea Fibroids Endometrial polyp Abnormal uterine bleeding Endocervical polyp Shoulder pain, right Hypertension Low back pain radiating to lower extremity Hordeolum Abnormal facial hair Depressive disorder Bipolar 2 disorder, major depressive episode Bipolar disorder, most recent episode manic History of concussion History of hypercholesterolemia History of nephrolithiasis Hypertension Bipolar disorder control counseling At risk for diabetes mellitus Overflow stress urinary incontinence in female Posttraumatic stress disorder Seizure disorder Obsessive compulsive disorder Surgical History History of surgical removal of pilonidal cyst History of lithotripsy Family History Father Chronic mental illness PCK (polycystic kidney disease) Hypothyroidism Post traumatic stress disorder (PTSD) Substance use disorder Mother Hyperthyroidism Post traumatic stress disorder (PTSD) Breast CA, Onset Age: 40 Other Mental health disorder Social History Household Members: Other Household Members Other:: My dog Housing: Apartment Are you a primary managed care specialist to a significant other at home: No Do you presently have visiting nurse or other home services: No Alcohol intake: never Comment: Discharge date is August 28, 2023 Patient Tobacco Use Status: Current everyday Tobacco user Tobacco use type: Cigarette Cigarette Packs Per Day: 1 Cigarettes Per Day: 20 Years Smoked: 15 e-Cigarette/Vaping Use: Never Used Second Hand Smoke Exposure: Yes service: No Current occupational status: employed Cognitive needs: No Hearing needs: No Vision needs: No Female Reproductive History Menstrual Age of Menarche: 11 Assessment & Plan Assessment & Plan (1) Opioid use disorder, moderate, in early remission, dependence: Code(s): F11.21 - Opioid dependence, in remission Category: Medical Plan: continue suboxone at current dose follow up 4 weeks --next rx to [facility] pharamcy Medications: Refilled buprenorphine-naloxone 2-0.5 mg 1 film buccal TID 90 ea 0RF
== END 2024-01-25 17:00 | disposition home or self-care (01) ==
PROVIDERS: Visit Provider Nurse Practitioner Psychiatric/Mental Health
DX: F11.21 Opioid dependence, in remission (principal)
CPT/HCPCS: 99213

== ENCOUNTER → 2024-01-25 16:35 | Outpatient (BNVA) | payer OTHER, MEDICARE, SELFPAY | PROVIDERS: Visit Provider Nurse Practitioner Psychiatric/Mental Health ==

== ENCOUNTER 2024-02-09 12:40 | Outpatient (AMB) | payer OTHER, MEDICAID, SELFPAY ==
--- NOTE | 2024-02-09 12:42 | MHC.OFFVIS ---
Vital Signs 02/09/24 12:55 Height 5 ft 4 in Weight 187 lb 6.287 oz BMI 32.2 BP 124/76 Intake Visit Reasons: pelvic pain Electrical Engineering Intern Required: No Information Interpreted: non-clinical & clinical Senior Sales Consultant: Senior Sales Consultant Present (Ashley Roman MARION) Accompanied by: Self / Same As Patient Allergies buspirone [From BuSpar] Allergy (Severe, Verified 02/09/24 13:00) Seizure gabapentin Allergy (Unknown, Verified 02/09/24 13:00) memory loss hydrocodone [Vicodin] Allergy (Unknown, Verified 02/09/24 13:00) Anaphylaxis lactose [LACTOSE] Allergy (Unknown, Verified 02/09/24 13:00) gi issues lisinopril Adverse Reaction (Intermediate, Unverified 02/09/24 13:00) Diarrhea tramadol Adverse Reaction (Intermediate, Verified 02/09/24 13:00) hallucinations Is last menstrual period known: Yes Last menstrual period: 01/18/24 HPI Comments Details: The patient is presenting with pelvic pain started 1-2 week ago. It's intermittent in nature lasting few seconds and occurs 3x/day. it is not associated with vaginal discharge, no constipation, dysuria, or frequency , no incontinence, no n/v, no feverishness PFSH Medical History Cyst near tailbone Obesity Pilonidal cyst Dysuria Bipolar 2 disorder, major depressive episode Actinic keratosis Breast cancer screening by mammogram BCP ( control pills) initiation Anovulatory amenorrhea Fibroids Endometrial polyp Abnormal uterine bleeding Endocervical polyp Shoulder pain, right Hypertension Low back pain radiating to lower extremity Hordeolum Abnormal facial hair Depressive disorder Bipolar 2 disorder, major depressive episode Bipolar disorder, most recent episode manic History of concussion History of hypercholesterolemia History of nephrolithiasis Hypertension Bipolar disorder control counseling At risk for diabetes mellitus Overflow stress urinary incontinence in female Posttraumatic stress disorder Seizure disorder Obsessive compulsive disorder Surgical History History of surgical removal of pilonidal cyst History of lithotripsy Family History Father Chronic mental illness PCK (polycystic kidney disease) Hypothyroidism Post traumatic stress disorder (PTSD) Substance use disorder Mother Hyperthyroidism Post traumatic stress disorder (PTSD) Breast CA, Onset Age: 40 Other Mental health disorder Social History Household Members: Other Household Members Other:: My dog Housing: Apartment Are you a primary child care team lead to a significant other at home: No Do you presently have visiting nurse or other home services: No Alcohol intake: never Comment: Discharge date is August 28, 2023 Patient Tobacco Use Status: Current everyday Tobacco user Tobacco use type: Cigarette Cigarette Packs Per Day: 1 Cigarettes Per Day: 20 Years Smoked: 15 e-Cigarette/Vaping Use: Never Used Second Hand Smoke Exposure: Yes service: No Current occupational status: employed Cognitive needs: No Hearing needs: No Vision needs: No Female Reproductive History Menstrual Age of Menarche: 11 Date of last menstrual period: 01/18/24 Review of Systems Const All systems reviewed & are unremarkable except as noted in HPI and below Physical Exam General: Yes no CVA tenderness External Female Exam: normal external appearance and normal appearance of the urethra Speculum Exam - Vagina: normal appearance of the vagina, normal palpation, no lesions and no masses Speculum Exam - Cervix: normal appearance of the cervix, normal palpation, no lesions, no masses and nontender Bimanual exam- vagina & uterus: normal bimanual exam, normal palpation, uterine size normal, normal palpation, uterine shape normal, No Cervical tenderness present and non-tender Bimanual Exam- Adnexa, other: normal adnexae Back/Spine/Pelvis Back: no CVA tenderness Results AMB Test Urine AMB Test Urine Negative Last Edit by Ashley Roman CMA on 02/09/24 13:01 Assessment & Plan Assessment & Plan (1) Pelvic pain: Code(s): R10.2 - Pelvic and perineal pain Category: Medical Plan: Urine dip and test done in the office were both negative. GC and chlamydia taken and pelvic ultrasound ordered. Discussed with the patient the differential diagnosis of pelvic pain including but not limited to adnexal, uterine masses, pelvic infections (PID), GI the (Irritable bowel syndrome, diverticulitis, others), musculoskeletal, myofascial pain abdominal wall , adhesions, endometriosis, psychological and others causes. Will check results and treat accordingly. All questions answered, the patient verbalized understanding. Instructed the patient to schedule follow-up appointment in 2 weeks Orders: Orders CT NG by PCR Today R10.2 - Pelvic and perineal pain AMB HCG Urine Test Today Z32.02 - Encounter for test, result negative AMB Urinalysis Dipstick Today Z32.02 - Encounter for test, result negative US pelvic and transvaginal Today R10.2 - Pelvic and perineal pain Coding Level of Care Code Est Pt Level 3 (79806) Diagnoses Pelvic pain R10.2
[2024-02-09 12:55] VITALS: BP 124/76; BMI 32.2
== END 2024-02-09 13:55 | disposition home or self-care (01) ==
PROVIDERS: Visit Provider Obstetrics & Gynecology
DX: R10.2 Pelvic and perineal pain (principal); Z32.02 Encounter for pregnancy test, result negative
CPT/HCPCS: 99213

== ENCOUNTER 2024-02-09 12:40 | Outpatient (REF) | payer OTHER, MEDICARE, SELFPAY ==
[2024-02-09 18:16] LABS: CT PCR NOT DETECTED (Not Detect.); NG PCR NOT DETECTED (Not Detect.)
== END 2024-02-09 12:41 | disposition home or self-care (01) ==
LOC: HO.LNP 12:40
PROVIDERS: Visit Provider Obstetrics & Gynecology
DX: R10.2 Pelvic and perineal pain (principal); Z32.02 Encounter for pregnancy test, result negative
CPT/HCPCS: 81002; 81025; 87491; 87591

== ENCOUNTER 2024-02-15 15:18 | Outpatient (REF) | payer OTHER, MEDICAID, SELFPAY ==
--- NOTE | ~2024-02-15 | US_ITS ---
EXAMINATION: US PELVIS CLINICAL INFORMATION: Pelvic and perineal pain. COMPARISON: Ultrasound dated December 16, 2022 TECHNIQUE: Ultrasound of the pelvis is performed using both transabdominal and transvaginal transducers along with Doppler. Transvaginal imaging is performed due to inadequate visualization transabdominally. FINDINGS: Submitted for interpretation on March 29, 2024. Uterus: The uterus is retroverted and measures 7 x 4 x 6 cm. Multiple intramural and subserosal hypoechoic nodular lesions, the largest measures 2.1 cm. The double wall endometrial thickness is 5 mm. . Adnexa: Both ovaries are visualized. There is normal color flow to the adnexa. There is no ovarian torsion. There is no pelvic ascites or fluid collection. . Right ovary measures 4 x 2 x 2 cm. Volume is 7 cc there is a 1.3 cm isoechoic structure without flow on color Doppler interrogation. Left ovary measures 3 x 2 x 2 cm. Volume is 6 cc. US/US pelvic and transvaginal IMPRESSION: Multiple uterine fibroids, largest measures 2.1 cm. There is in retroversion flexion which could be seen patients with endometriosis. No ovarian torsion. 1.3 cm complex cystic lesion/follicle.. Electronically signed by: Gilberto Mora MD 03/29/2024 03:27 PM EST
== END 2024-02-15 15:19 | disposition home or self-care (01) ==
LOC: HO.US 15:18
PROVIDERS: PCP Internal Medicine; Visit Provider Obstetrics & Gynecology
DX: R10.2 Pelvic and perineal pain (principal)
CPT/HCPCS: 76830; 76856

== ENCOUNTER → 2024-02-15 15:20 | Outpatient (BNV) | payer OTHER, MEDICAID, SELFPAY | PROVIDERS: PCP Internal Medicine; Visit Provider Radiology Diagnostic Radiology | DX: R10.2 Pelvic and perineal pain (principal) | CPT/HCPCS: 76856 ==

== ENCOUNTER 2024-02-22 15:48 | Outpatient (AMB) | payer OTHER, MEDICARE, SELFPAY ==
--- NOTE | 2024-02-22 15:58 | A.OFFVISCC_ITS ---
Intake Visit Reasons: MAT Allergies buspirone [From BuSpar] Allergy (Severe, Verified 02/09/24 13:00) Seizure gabapentin Allergy (Unknown, Verified 02/09/24 13:00) memory loss hydrocodone [Vicodin] Allergy (Unknown, Verified 02/09/24 13:00) Anaphylaxis lactose [LACTOSE] Allergy (Unknown, Verified 02/09/24 13:00) gi issues lisinopril Adverse Reaction (Intermediate, Unverified 02/09/24 13:00) Diarrhea tramadol Adverse Reaction (Intermediate, Verified 02/09/24 13:00) hallucinations HPI HPI MAT: Details: Patient presents for follow up Currently prescribed Suboxone 2mg TID No issues related to dose Did try not taking for a day or so, and was pleased that she as not thinking about it, but did have physical sx, so she ended up taking it Happy with her new appt February 17 --one year in recovery [facility] Medical History Cyst near tailbone Obesity Pilonidal cyst Dysuria Bipolar 2 disorder, major depressive episode Actinic keratosis Breast cancer screening by mammogram BCP ( control pills) initiation Anovulatory amenorrhea Fibroids Endometrial polyp Abnormal uterine bleeding Endocervical polyp Shoulder pain, right Hypertension Low back pain radiating to lower extremity Hordeolum Abnormal facial hair Depressive disorder Bipolar 2 disorder, major depressive episode Bipolar disorder, most recent episode manic History of concussion History of hypercholesterolemia History of nephrolithiasis Hypertension Bipolar disorder control counseling At risk for diabetes mellitus Overflow stress urinary incontinence in female Posttraumatic stress disorder Seizure disorder Obsessive compulsive disorder Surgical History History of surgical removal of pilonidal cyst History of lithotripsy Family History Father Chronic mental illness PCK (polycystic kidney disease) Hypothyroidism Post traumatic stress disorder (PTSD) Substance use disorder Mother Hyperthyroidism Post traumatic stress disorder (PTSD) Breast CA, Onset Age: 40 Other Mental health disorder Social History Household Members: Other Household Members Other:: My dog Housing: Apartment Are you a primary critical care unit manager to a significant other at home: No Do you presently have visiting nurse or other home services: No Alcohol intake: never Comment: Discharge date is August 28, 2023 Patient Tobacco Use Status: Current everyday Tobacco user Tobacco use type: Cigarette Cigarette Packs Per Day: 1 Cigarettes Per Day: 20 Years Smoked: 15 e-Cigarette/Vaping Use: Never Used Second Hand Smoke Exposure: Yes service: No Current occupational status: employed Cognitive needs: No Hearing needs: No Vision needs: No Female Reproductive History Menstrual Age of Menarche: 11 Review of Systems Const Reports as per HPI and Reports no additional complaints Physical Exam Const General: cooperative Psych Appearance: grossly normal Mental Status: mental status grossly normal Speech and movement: Normal speech and movement present Attitude: cooperative Assessment & Plan Assessment & Plan (1) Opioid use disorder, moderate, in early remission, dependence: Code(s): F11.21 - Opioid dependence, in remission Category: Medical Plan: * continue suboxone at current dose * follow up 4 weeks --next rx to [facility] pharamcy * labs ordered Orders: Orders Liver Panel 02/22/24 Z79.899 - Other exterminator helper (current) drug therapy
== END 2024-02-22 16:10 | disposition home or self-care (01) ==
PROVIDERS: Visit Provider Nurse Practitioner Psychiatric/Mental Health
DX: F11.21 Opioid dependence, in remission (principal)
CPT/HCPCS: 99213

== ENCOUNTER → 2024-02-22 15:48 | Outpatient (BNVA) | payer OTHER, MEDICARE, SELFPAY | PROVIDERS: Visit Provider Nurse Practitioner Psychiatric/Mental Health ==

== ENCOUNTER 2024-03-21 15:53 | Outpatient (AMB) | payer OTHER, MEDICARE, MEDICAID, SELFPAY ==
--- NOTE | 2024-03-21 15:55 | MHC.PC.OV ---
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 Required: No Allergies buspirone [From BuSpar] Allergy (Severe, Verified 03/21/24 16:09) Seizure gabapentin Allergy (Unknown, Verified 03/21/24 16:09) memory loss hydrocodone [Vicodin] Allergy (Unknown, Verified 03/21/24 16:09) Anaphylaxis lactose [LACTOSE] Allergy (Unknown, Verified 03/21/24 16:09) gi issues lisinopril Adverse Reaction (Intermediate, Verified 03/21/24 16:09) Diarrhea tramadol Adverse Reaction (Intermediate, Verified 03/21/24 16:09) hallucinations Medication List - Last Reconciled 03/21/24 by Sandy Keith PA-C amlodipine 2.5 mg PO DAILY buprenorphine-naloxone 2-0.5 mg 1 film buccal TID carbamazepine ER (Tegretol XR) 200 mg PO QAM carbamazepine ER 200 mg PO .QHS clonazepam 0.5 mg PO TID PRN lamotrigine 50 mg (2 x 25 mg) PO BID 90 days lamotrigine 200 mg PO BID 90 days metformin 250 mg (1/2 x 500 mg) PO BID 90 days naloxone 4 mg/actuation (Narcan) 4 mg intranasal Q2M PRN nicotine 1 inh inhalation Q4-6H PRN olanzapine take 1/2 tablet twice daily (in AM and lunch) and one tablet daily PRN agitation, insomnia olanzapine 10 mg PO BEDTIME prazosin 1 mg PO BID PRN topiramate 25 mg PO BID 90 days Tobacco use date assessed: 08/25/23 Dental Screening Dental Screen Date: 03/21/24 Did you have a dental visit in the last 12 months?: No Did you have a dental problem in the last 6 months where you did not have access to dental care?: No HPI annual exam HPI Details 43-year-old obese female smoker with hypercholesterolemia, cervicalgia, PTSD, hypertension, opiate use disorder, impingement of the right shoulder last seen by Dr. Larsen coming in for annual exam. In review of the notes, patient follows with [facility] for opiate use disorder. She has been following with [facility] gynecology for pelvic pain last seen 02/09/2024 advised pelvic ultrasound and has follow up scheduled for 03/31/2024. Mammogram scheduled for 03/24/2024. Patient follows with service that for Psychiatry in [place] and feels well managed on her current medications. She does complain of occasional hip stiffness while she drives and difficulty getting in and out of car. Denies any pain in the hips or back. She has not seen an eye doctor in many years and complaining of decreased vision. She also mentions she has been having increased stress and anxiety which could explain what her blood pressure is elevated. [facility] Medical History Cyst near tailbone Obesity Pilonidal cyst Dysuria Bipolar 2 disorder, major depressive episode Actinic keratosis Breast cancer screening by mammogram BCP ( control pills) initiation Anovulatory amenorrhea Fibroids Endometrial polyp Abnormal uterine bleeding Endocervical polyp Shoulder pain, right Hypertension Low back pain radiating to lower extremity Hordeolum Abnormal facial hair Depressive disorder Bipolar 2 disorder, major depressive episode Bipolar disorder, most recent episode manic History of concussion History of hypercholesterolemia History of nephrolithiasis Hypertension Bipolar disorder control counseling At risk for diabetes mellitus Overflow stress urinary incontinence in female Posttraumatic stress disorder Seizure disorder Obsessive compulsive disorder Surgical History History of surgical removal of pilonidal cyst History of lithotripsy Family History Father Chronic mental illness PCK (polycystic kidney disease) Hypothyroidism Post traumatic stress disorder (PTSD) Substance use disorder Mother Hyperthyroidism Post traumatic stress disorder (PTSD) Breast CA, Onset Age: 41 Other Mental health disorder Social History Household Members: Other Household Members Other:: My dog Housing: Apartment Are you a primary respiratory care program director to a significant other at home: No Do you presently have visiting nurse or other home services: No Alcohol intake: never Comment: Discharge date is August 28, 2023 Patient Tobacco Use Status: Former Tobacco user Tobacco use type: Cigarette Cigarette Packs Per Day: 1 Cigarettes Per Day: 20 Years Smoked: 15 e-Cigarette/Vaping Use: Currently Using Second Hand Smoke Exposure: Yes service: No Current occupational status: employed Cognitive needs: No Hearing needs: No Vision needs: No Female Reproductive History Menstrual Age of Menarche: 11 Questionnaire PHQ-9 Over the last 2 weeks, how often have you been bothered by any of the following problems? 1. Little interest or pleasure in doing things: several days 2. Feeling down, depressed, or hopeless: several days 3. Trouble falling or staying asleep, or sleeping too much: several days 4. Feeling tired or having little energy: several days 5. Poor appetite or overeating: not at all 6. Feeling bad about yourself - or that you are a failure or have let yourself or your family down: several days 7. Trouble concentrating on things, such as reading the newspaper or watching television: not at all 8. Moving or speaking so slowly that other people could have noticed. Or the opposite - being so fidgety or restless that you have been moving around a lot more than usual: not at all 9. Thoughts that you would be better off or of hurting yourself in some way: not at all Total score: 5 Depression Screening Interpretation: Negative Depression Screening Done: Yes 96485 - PHQ-9 Billing: Yes Source: Developed by Drs. Hans Ding, Venus Powers, Guanaco Marie and colleagues, with an educational joellen from [employer]. Thrive Questionnaire Date Thrive assessed: 08/25/23 I am a: Patient What is your living situation today?: I have a steady place to live Within the past 12 months, did the food you bought not last and you didn't have the money to get more?: Often true Within the past 12 months, did you worry whether your food would run out before you got money to buy more?: Often true Do you have trouble paying for medicines?: Yes Do you have trouble getting transportation to medical appointments?: No Do you have trouble paying your heating and electricity bill?: No Do you have trouble taking care of your child, family member or friend?: No Do you have trouble with day-to-day activities such as bathing, preparing meals, shopping, managing finances, etc.?: Yes Are you currently unemployed and looking for a job?: No Are you interested in more education?: Yes Please select the resources that you would like help with: Food and Paying for medicine Currently or been in a relationship where the following occur: I choose not to answer THRIVE Score: 2 AUDIT C Alcohol Use Questionnaire (AUDIT-C) 1. How often do you have a drink containing alcohol?: Never 2. How many drinks containing alcohol do you have on a typical day when you are drinking?: 1 or 2 3. How often do you have six or more drinks on one occasion?: Never Total Score: 0 CARTER-7 AMB Questionnaire CARTER-7 Date CARTER - 7 assessed: 08/25/23 Feeling nervous, anxious, or on edge: 2 = More than half the days Not being able to stop or control worryin = More than half the days Worrying too much about different things: 2 = More than half the days Trouble relaxin = More than half the days Being so restless that it is hard to sit still: 1 = Several days Becoming easily annoyed or irritable: 1 = Several days Feeling afraid as if something awful might happen: 1 = Several days Total CARTER-7 score (0-4 normal; 5-9 mild; 10-14 moderate; 15-21 severe): 11 Source: Developed by Drs. Hans Ding, Venus Powers, Guanaco Marie and colleagues, with an educational joellen from [employer]. CARTER-7 Assessment Billing CARTER-7 Assessment Tool: CARTER-7 Assessment 78468 Review of Systems Const Denies body aches, Denies fatigue, Denies fever(s), Denies frequent falls, Denies headache(s) and Denies weakness Eyes Reports no additional complaints, Denies change in vision and Reports requires corrective lenses ENT Denies dysphagia, Denies dizziness, Denies facial pain, Denies headache(s), Denies nasal congestion and Denies odynophagia Card Denies chest pain, Denies syncope, Denies irregular heart rhythm, Denies leg edema, Denies lightheadedness and Denies dyspnea Resp Denies cough and Denies dyspnea GI Denies abdominal pain, Reports constipation, Denies dysphagia, Denies dyspepsia, Denies diarrhea, Reports nausea, Denies odynophagia and Denies vomiting Denies urinary frequency, Denies dysuria, Denies urinary hesitancy and Denies urinary urgency Musc Details: bilateral hip stiffness Denies back pain and Denies myalgias Skin/Breast Reports system reviewed and no additional complaints, except as documented Neuro Denies dizziness, Denies syncope, Denies frequent falls, Denies headache(s) and Denies weakness Psych Reports no additional complaints Endo Denies fatigue Physical exam (Primary Care) Vital Signs: Last Vital Signs Pulse 83 03/21/24 15:56 BP 158/90 H 03/21/24 15:56 Pulse Ox 98 03/21/24 15:56 Oxygen Delivery Method Room Air 03/21/24 15:56 BMI result Body Mass Index 31.2 Tobacco/Smoking Status: Tobacco use Status Tobacco use date assessed 08/25/23 03/21/24 15:56 Patient Tobacco Use Status Former Tobacco user 03/21/24 16:05 Tobacco use type Cigarette 03/21/24 15:56 e-Cigarette/Vaping Use Currently Using 03/21/24 16:05 PHQ-9: PHQ-9 Score PHQ-9: Total score 5 03/22/24 08:05 Depression Screening Interpretation: Negative Thrive Assessment: Date of Thrive Assessment Date Thrive assessed 08/25/23 03/21/24 15:56 Currently or been in a relationship where the following occur: I choose not to answer Const General: cooperative, healthy appearing, comfortable and no acute distress Orientation/consciousness: patient oriented x3 HENMT Head: Yes normocephalic Ears: hearing grossly normal bilaterally, external ears normal, TM's normal bilaterally and EAC's normal General nose exam: Normal external nose present Face and sinus: Yes normal facial exam and Yes sinuses nontender Mouth: Normal oral and palatal mucosa present and tongue normal Throat: Yes posterior oropharynx normal Eyes General: appearance normal, both eyes and all related structures Conjunctivae: conjunctivae normal Pupils: Equal, round and reactive pupils present EOM: EOMs intact bilaterally and No Nystagmus present Neck Neck: Yes normal visual inspection, Yes full ROM and Yes no lymphadenopathy Chest Chest palpation & inspection: normal inspection of the chest Resp Effort & Inspection: normal respiratory effort Auscultation: clear to auscultation bilaterally, no crackles, no rales, no rhonchi, no wheezes and breath sounds present Cardio Rate: regular rate Rhythm: regular rhythm Peripheral pulses: radial pulses present and dorsalis pedis present GI Inspection: Yes normal to inspection and No Abdominal wall edema Palpation (GI): Soft to palpation, not firm and nontender Auscultation: normal bowel sounds Rectal Exam - Female: deferred General: Yes no CVA tenderness Back/Spine/Pelvis Other: No pain to palpation of bilateral hips and no pain with active range of motion Back: no CVA tenderness Skin General skin exam: no rashes or lesions noted Neuro General: patient oriented x3 Cranial nerves: Yes Equal, round and reactive pupils present, Yes Midline tongue present, Yes Ability to bilaterally elevate shoulders present and No Nystagmus present Gait exam (Neuro): Normal gait present Extrem General: Yes normal to inspection, Yes full ROM, No no pedal edema and No edema Psych Speech and movement: Normal speech and movement present Affect: normal affect Insight: Good insight present (Psych) Judgement: Good judgement present (Psych) Results AMB Hemoglobin A1c AMB Hemoglobin A1c 5.1 % Last Edit by MARION Martínez on 03/21/24 16:20 Results Reviewed Results Reviewed: Laboratory Last Values Hgb A1c (Clinic) 5.1 % (4.0-6.0) 03/21/24 15:57 Coding Level of Care Code Est Pt Prev Care 40-64y(42110) Diagnoses Bipolar I disorder, current or most recent episode manic, in partial remission with mixed features F31.73 Hip stiffness M25.659 Annual physical exam Z00.00 Opioid use disorder, moderate, in sustained remission F11.21 Pelvic pain R10.2 Hypertension I10 Post-traumatic stress disorder, chronic F43.12 Cervicalgia M54.2 Hypercholesterolemia E78.00 Tobacco abuse Z72.0 Additional Codes CARTER-7 Assessment Billing - CARTER-7 Assessment Tool: CARTER-7 Assessment 24471 ([id number]) Assessment & Plan Assessment & Plan (1) Bipolar I disorder, current or most recent episode manic, in partial remission with mixed features: Code(s): F31.73 - Bipolar disorder, in partial remission, most recent episode manic Category: Medical Plan: Patient follows with services in [place] and feels stable on medications. (2) Hip stiffness: Code(s): M25.659 - Stiffness of unspecified hip, not elsewhere classified Category: Medical Plan: Referral to physical therapy placed for gentle stretching exercises. (3) Annual physical exam: Code(s): Z00.00 - Encounter for general adult medical examination without abnormal findings Category: Medical Plan: Patient is up-to-date on all recommended routine screenings and vaccinations for age. Mammogram scheduled for later this month. Ordered for updated blood work (4) Opioid use disorder, moderate, in sustained remission: Code(s): F11.21 - Opioid dependence, in remission Category: Medical Plan: Continue on buprenorphine-naloxone and continue to follow with comprehensive Care Clinic. (5) Pelvic pain: Code(s): R10.2 - Pelvic and perineal pain Category: Medical Plan: Currently following with gynecology and pelvic ultrasound pending at this time. (6) Hypertension: Code(s): I10 - Essential (primary) hypertension Category: Medical Plan: Continue on current blood pressure medication. Avoid salt intake and encourage healthy diet and regular exercise. Blood pressure mildly elevated in the office today advised to take blood pressures at home and bring log to next appointment. (7) Post-traumatic stress disorder, chronic: Code(s): F43.12 - Post-traumatic stress disorder, chronic Category: Medical Plan: Following with service [facility] is stable on current medications (8) Cervicalgia: Comment: MRI 2009 Code(s): M54.2 - Cervicalgia Category: Medical Plan: Denies any pain at this time advised to use Tylenol and ibuprofen as needed. (9) Hypercholesterolemia: Code(s): E78.00 - Pure hypercholesterolemia, unspecified Category: Medical Plan: Avoid foods that are high in cholesterol such as red meat, fried foods, eggs and baked goods. Triglyceride goal of less than 150 and LDL goal of less than 100. Ordered for repeat blood work (10) Tobacco abuse: Code(s): Z72.0 - Tobacco use Category: Medical Plan: Smoking cigarettes and the use of tobacco can be harmful. We discussed the importance of stopping and options to aid in smoking cessation. Plan This note was constructed using voice recognition software. While every effort has been made to ensure accuracy and roll tension tester, still areas may have been included sometimes these areas may affect the content or meeting of the given symptoms. Total time spent caring for the patient today was 30 minutes. This includes time spent before the visit reviewing the chart, time spent during the visit, and time spent after the visit and documentation. Orders: Orders Comprehensive Met. Panel 03/21/24 E78.00 - Pure hypercholesterolemia, unspecified Vitamin B12 and Folate 03/21/24 Z00.00 - Encounter for general adult medical examination without abnormal findings AMB Hemoglobin A1c 03/21/24 Z13.9 - Encounter for screening, unspecified PT Evaluation and Treatment 03/21/24 M25.559 - Pain in unspecified hip, M54.2 - Cervicalgia Complete Blood Count Auto Diff 03/21/24 F11.21 - Opioid dependence, in remission Lipid Panel 03/21/24 E78.00 - Pure hypercholesterolemia, unspecified TSH reflex Free T4 03/21/24 Z00.00 - Encounter for general adult medical examination without abnormal findings Vitamin D 25-OH (D2 and D3) 03/21/24 Z00.00 - Encounter for general adult medical examination without abnormal findings Free T4 (Free Thyroxine) 03/21/24 Z00.00 - Encounter for general adult medical examination without abnormal findings Referrals Optometry Referral H53.8 - Other visual disturbances, Z00.00 - Encounter for general adult medical examination without abnormal findings Medications: New ondansetron 4 mg PO Q8H 20 tabs 0RF
[2024-03-21 15:56] VITALS: BP 158/90; PULSE 83; O2SAT 98; BMI 31.2
== END 2024-03-21 16:37 | disposition home or self-care (01) ==
LOC: HO.HMCH 15:54
PROVIDERS: PCP Internal Medicine
DX: F31.73 Bipolar disorder, in partial remission, most recent episode manic (principal); M25.659 Stiffness of unspecified hip, not elsewhere classified; Z00.00 Encounter for general adult medical examination without abnormal findings; F11.21 Opioid dependence, in remission; R10.2 Pelvic and perineal pain; I10 Essential (primary) hypertension; F43.12 Post-traumatic stress disorder, chronic; M54.2 Cervicalgia; E78.00 Pure hypercholesterolemia, unspecified; Z72.0 Tobacco use

== ENCOUNTER → 2024-03-21 15:53 | Outpatient (BNVA) | payer OTHER, MEDICARE, MEDICAID, SELFPAY | PROVIDERS: PCP Internal Medicine | DX: Z00.00 Encounter for general adult medical examination without abnormal findings (principal); F31.73 Bipolar disorder, in partial remission, most recent episode manic; M25.659 Stiffness of unspecified hip, not elsewhere classified; F11.20 Opioid dependence, uncomplicated; I10 Essential (primary) hypertension; R10.2 Pelvic and perineal pain; F43.12 Post-traumatic stress disorder, chronic; M54.2 Cervicalgia; E78.00 Pure hypercholesterolemia, unspecified; Z72.0 Tobacco use | CPT/HCPCS: 83036; 96127 ==

== ENCOUNTER → 2024-03-30 15:28 | Outpatient (BNVA) | payer OTHER, MEDICARE, SELFPAY | PROVIDERS: Visit Provider Nurse Practitioner Psychiatric/Mental Health | DX: Z79.899 Other long term (current) drug therapy (principal) ==

== ENCOUNTER 2024-03-31 15:20 | Outpatient (AMB) | payer OTHER, MEDICARE, MEDICAID, SELFPAY ==
--- NOTE | 2024-03-31 15:22 | MHC.OFFVIS ---
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 Required: No Information Interpreted: non-clinical & clinical Accompanied by: Self / Same As Patient Allergies buspirone [From BuSpar] Allergy (Severe, Verified 03/31/24 15:25) Seizure gabapentin Allergy (Unknown, Verified 03/31/24 15:25) memory loss hydrocodone [Vicodin] Allergy (Unknown, Verified 03/31/24 15:25) Anaphylaxis lactose [LACTOSE] Allergy (Unknown, Verified 03/31/24 15:25) gi issues lisinopril Adverse Reaction (Intermediate, Verified 03/31/24 15:25) Diarrhea tramadol Adverse Reaction (Intermediate, Verified 03/31/24 15:) hallucinations HPI Comments Details: Presenting for follow-up regarding her pelvic pain. The patient is doing well. The following workup was done so far: GC/CT negative. Last visit urine test was negative. Last visit urine dip was negative. Pelvic ultrasound showed the following: IMPRESSION: Multiple uterine fibroids, largest measures 2.1 cm. There is in retroversion flexion which could be seen patients with endometriosis. No ovarian torsion. 1.3 cm complex cystic lesion/follicle. The patient is doing well her pain her completely resolved PFSH Medical History Cyst near tailbone Obesity Pilonidal cyst Dysuria Bipolar 2 disorder, major depressive episode Actinic keratosis Breast cancer screening by mammogram BCP ( control pills) initiation Anovulatory amenorrhea Fibroids Endometrial polyp Abnormal uterine bleeding Endocervical polyp Shoulder pain, right Hypertension Low back pain radiating to lower extremity Hordeolum Abnormal facial hair Depressive disorder Bipolar 2 disorder, major depressive episode Bipolar disorder, most recent episode manic History of concussion History of hypercholesterolemia History of nephrolithiasis Hypertension Bipolar disorder control counseling At risk for diabetes mellitus Overflow stress urinary incontinence in female Posttraumatic stress disorder Seizure disorder Obsessive compulsive disorder Surgical History History of surgical removal of pilonidal cyst History of lithotripsy Family History Father Chronic mental illness PCK (polycystic kidney disease) Hypothyroidism Post traumatic stress disorder (PTSD) Substance use disorder Mother Hyperthyroidism Post traumatic stress disorder (PTSD) Breast CA, Onset Age: 40 Other Mental health disorder Social History Household Members: Other Household Members Other:: My dog Housing: Apartment Are you a primary day care teacher to a significant other at home: No Do you presently have visiting nurse or other home services: No Alcohol intake: never Comment: Discharge date is August 28, 2023 Patient Tobacco Use Status: Former Tobacco user Tobacco use type: Cigarette Cigarette Packs Per Day: 1 Cigarettes Per Day: 20 Years Smoked: 15 e-Cigarette/Vaping Use: Currently Using Second Hand Smoke Exposure: Yes service: No Current occupational status: employed Cognitive needs: No Hearing needs: No Vision needs: No Female Reproductive History Menstrual Age of Menarche: 11 Review of Systems Const All systems reviewed & are unremarkable except as noted in HPI and below Reports as per HPI and Reports no additional complaints GI Reports no additional complaints Reports no additional complaints Physical Exam Vital Signs: BMI result Body Mass Index 31.2 Assessment & Plan Assessment & Plan (1) Uterine myoma: Code(s): D25.9 - Leiomyoma of uterus, unspecified Category: Medical Plan: Discussed with the patient the findings on pelvic ultrasound & the risk of myosarcoma; discussed with the patient the options of treatment including expectant management versus hysterectomy; the pros and cons, risks benefits of each approach were discussed with the patient including the fact that in cases of myosarcoma, surgical treatment can lead to early diagnosis and positively affects the prognosis; after further discussion, the patient decided to proceed with expectant management. Will repeat pelvic ultrasound periodically. Instructions given to patient to call in case any of the following occurs: pressure symptoms, abnormal uterine bleeding, pelvic pain; and to schedule a 3 months pelvic ultrasound and a follow-up appointment . All questions answered, the patient verbalized understanding and agreed with the plan . (2) Complex ovarian cyst: Comment: Right side Code(s): N83.299 - Other ovarian cyst, unspecified side Category: Medical Plan: Discussed with the patient the complex ovarian cyst by ultrasound. Discussed with the patient the Ultrasound findings, the main limitation of transvaginal ultrasonography alone as a diagnostic tool to distinguish benign from malignant masses relates to its lack of specificity and low positive predictive value for cancer. The differential diagnosis discussed with the patient includes the following but not limited to: benign and malignant gynecological and non-gynecological causes. Discussed with the patient options of treatment , in case CA 125 is not elevated, including laparoscopy ovarian cystectomy/oophorectomy vs. expectant management with repeat US in repeating pelvic US in 6-12 weeks from previous US. If the ovarian complex cyst is persistent larger and / or more complex looking, or higher CA 125 will refer to gynecologic Oncology. All pros, cons, risks and benefits of each approach were discussed with the patient including but not limited to a delay in the diagnosis and treatment of ovarian cancer affecting the prognosis; The patient decided to go ahead with expectant management. Instructions given the patient to schedule a 3 months follow-up ultrasound appointment. All questions were answered & the patient verbalized understanding and agreed with the plan. Coding Level of Care Code Est Pt Level 3 (03427) Diagnoses Uterine myoma D25.9 Complex ovarian cyst N83.299
[2024-03-31 15:25] VITALS: BMI 31.2
== END 2024-03-31 15:50 | disposition home or self-care (01) ==
PROVIDERS: Visit Provider Obstetrics & Gynecology
DX: D25.9 Leiomyoma of uterus, unspecified (principal); N83.299 Other ovarian cyst, unspecified side
CPT/HCPCS: 99213

== ENCOUNTER → 2024-03-31 15:20 | Outpatient (BNVA) | payer MEDICAID, SELFPAY | PROVIDERS: Visit Provider Obstetrics & Gynecology ==

== ENCOUNTER 2024-04-27 14:48 | Outpatient (REF) | payer OTHER, MEDICARE, MEDICAID, SELFPAY | END 2024-04-27 14:49 | disposition home or self-care (01) | LOC: HO.MAMMO 14:48 | PROVIDERS: Visit Provider Internal Medicine | DX: Z12.31 Encounter for screening mammogram for malignant neoplasm of breast (principal) | CPT/HCPCS: 77063; 77067 ==

== ENCOUNTER → 2024-04-27 15:15 | Outpatient (BNV) | payer OTHER, MEDICARE, MEDICAID, SELFPAY | PROVIDERS: Visit Provider Internal Medicine | DX: Z12.31 Encounter for screening mammogram for malignant neoplasm of breast (principal) | CPT/HCPCS: 77063; 77067 ==

== ENCOUNTER 2024-05-02 10:40 | Outpatient (REF) | payer OTHER, MEDICARE, MEDICAID, SELFPAY | END 2024-05-02 10:41 | disposition home or self-care (01) | LOC: HO.US 10:40 | PROVIDERS: Visit Provider Obstetrics & Gynecology | DX: D21.9 Benign neoplasm of connective and other soft tissue, unspecified (principal) | CPT/HCPCS: 76830; 76856 ==

== ENCOUNTER → 2024-05-02 10:42 | Outpatient (BNV) | payer OTHER, MEDICARE, MEDICAID, SELFPAY | PROVIDERS: Visit Provider Radiology Diagnostic Radiology | DX: D25.9 Leiomyoma of uterus, unspecified (principal); N83.209 Unspecified ovarian cyst, unspecified side | CPT/HCPCS: 76830; 76856 ==

== ENCOUNTER 2024-05-23 12:35 | Outpatient (AMB) | payer OTHER, MEDICAID, SELFPAY ==
--- NOTE | 2024-05-23 12:39 | A.OFFVIS_ITS ---
Intake Visit Reasons: Ultrasound follow up Embroidery Machine Operator: Embroidery Machine Operator Present (Lorelei) Accompanied by: Self / Same As Patient Allergies buspirone [From BuSpar] Allergy (Severe, Verified 05/23/24 12:42) Seizure gabapentin Allergy (Unknown, Verified 05/23/24 12:42) memory loss hydrocodone [Vicodin] Allergy (Unknown, Verified 05/23/24 12:42) Anaphylaxis lactose [LACTOSE] Allergy (Unknown, Verified 05/23/24 12:42) gi issues lisinopril Adverse Reaction (Intermediate, Verified 05/23/24 12:42) Diarrhea tramadol Adverse Reaction (Intermediate, Verified 05/23/24 12:42) hallucinations HPI Comments Details: Presenting for ultrasound follow-up regarding complex ovarian cyst and uterine myomas seen on previous ultrasound in 04/10. Pelvic ultrasound done in 05/10 showed the following: Uterus: The uterus is retroverted, retroflexed and measures 8.4 x 4.4 x 5.2 cm. The double wall endometrial thickness is 1.1 cm. The uterus is smooth in contour and has normal myometrial echogenicity there are multiple hypoechoic lesion consistent with fibroids. 1. Left fundal fibroid measures 1.1 x 1.1 x 1.4 cm. Previously it measured 1.8 x 1.4 x 1.7 cm. 2. Lesion in the body the uterus measures 0.4 x 0.5 and 0.7 cm. Previously measured 1.0 x 0.6 x 0.8 cm. 3. Lesion in the right fundus measures 1.8 x 1.6 x 1.9 cm. Previously measured 1.9 x 1.9 x 2.1 cm. 4. Lesion in right body of uterus measures 1.9 x 1.4 x 1.8 cm. Previously measured 1.6 x 1.3 x 1.5 cm. 5. Exophytic lesion posterior to fundus measures 2.0 x 1.4 x 1 4 cm. Previously measured 1.3 x 1.5 x 1.5 cm. There are small nabothian cyst seen in the cervix. Adnexa: Both ovaries are visualized. There is normal color flow to the adnexa. There is no ovarian torsion. There is no pelvic ascites or fluid collection. Right ovary measures 3.0 1.7 x 2.6 cm. Volume 6.9 mL. There is a anechoic cyst measuring 1.1 x 1.0 x 1.1 cm a dominant follicle. There is small free fluid adjacent to the right ovary. Left ovary measures 3.5 x 2.2 x 2.1 cm. Volume 8.5 mL. There is anechoic cyst measuring 2.1 x 1.5 x 2.1 cm. There is no free fluid in cul-de-sac. The patient has no complaints, no pelvic pressure or pain or abnormal uterine bleeding [facility] Medical History Cyst near tailbone Obesity Pilonidal cyst Dysuria Bipolar 2 disorder, major depressive episode Actinic keratosis Breast cancer screening by mammogram BCP ( control pills) initiation Anovulatory amenorrhea Fibroids Endometrial polyp Abnormal uterine bleeding Endocervical polyp Shoulder pain, right Hypertension Low back pain radiating to lower extremity Hordeolum Abnormal facial hair Depressive disorder Bipolar 2 disorder, major depressive episode Bipolar disorder, most recent episode manic History of concussion History of hypercholesterolemia History of nephrolithiasis Hypertension Bipolar disorder control counseling At risk for diabetes mellitus Overflow stress urinary incontinence in female Posttraumatic stress disorder Seizure disorder Obsessive compulsive disorder Surgical History History of surgical removal of pilonidal cyst History of lithotripsy Family History Father Chronic mental illness PCK (polycystic kidney disease) Hypothyroidism Post traumatic stress disorder (PTSD) Substance use disorder Mother Hyperthyroidism Post traumatic stress disorder (PTSD) Breast CA, Onset Age: 41 Other Mental health disorder Social History Household Members: Other Household Members Other:: My dog Housing: Apartment Are you a primary palliative care nurse practitioner to a significant other at home: No Do you presently have visiting nurse or other home services: No Alcohol intake: never Comment: Discharge date is August 28, 2023 Patient Tobacco Use Status: Former Tobacco user Tobacco use type: Cigarette Cigarette Packs Per Day: 1 Cigarettes Per Day: 20 Years Smoked: 15 e-Cigarette/Vaping Use: Currently Using Second Hand Smoke Exposure: Yes service: No Current occupational status: employed Cognitive needs: No Hearing needs: No Vision needs: No Female Reproductive History Menstrual Age of Menarche: 11 Review of Systems Const All systems reviewed & are unremarkable except as noted in HPI and below Reports as per HPI and Reports no additional complaints GI Reports no additional complaints Reports no additional complaints Assessment & Plan Assessment & Plan (1) Uterine myoma: Code(s): D25.9 - Leiomyoma of uterus, unspecified Category: Medical Plan: Discussed with the patient the findings on pelvic ultrasound & the risk of myosarcoma; discussed with the patient the options of treatment including expectant management versus hysterectomy; the pros and cons, risks benefits of each approach were discussed with the patient including the fact that in cases of myosarcoma, surgical treatment can lead to early diagnosis and positively affects the prognosis; after further discussion, the patient decided to proceed with expectant management. Will repeat pelvic ultrasound periodically. Instructions given to patient to call in case any of the following occurs: pressure symptoms, abnormal uterine bleeding, pelvic pain; and to schedule a 12 months pelvic ultrasound (order placed) and a follow-up appointment . All questions answered, the patient verbalized understanding and agreed with the plan . (2) Complex ovarian cyst: Comment: Right side Code(s): N83.299 - Other ovarian cyst, unspecified side Category: Medical Plan: Discussed with the patient ultrasound findings showing the previously identified complex cyst has resolved. The patient was instructed to call if symptoms recur. All questions were answered the patient verbalized understanding. Orders: Orders US pelvic and transvaginal 1 Year D25.9 - Leiomyoma of uterus, unspecified Coding Level of Care Code Est Pt Level 3 (76601) Diagnoses Uterine myoma D25.9 Complex ovarian cyst N83.299
== END 2024-05-23 13:45 | disposition home or self-care (01) ==
PROVIDERS: Visit Provider Obstetrics & Gynecology
DX: D25.9 Leiomyoma of uterus, unspecified (principal); N83.299 Other ovarian cyst, unspecified side
CPT/HCPCS: 99213

== ENCOUNTER 2024-06-08 14:47 | Outpatient (AMB) | payer OTHER, MEDICAID, SELFPAY ==
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
--- OUTSIDE RECORDS SUMMARY | 2024-06-08 17:19 | XMS_ITS ---
Author Organization [facility] Address [address] [place] [address] Care Team Providers Care Chuck Tender Name Role Phone Rene Larsen Primary Care Provider Gianni Neil [phone] REASON FOR VISIT buy wart stick Encounters Encounter Location Date Provider Diagnosis [address] [address] 01/15/2023 Gianni Michelle Plan Of Treatment No Information Progress Notes * Isabelle CHAPMAN BDOB: [birth year] (42 yo F)Acc No.[id number]:01/15/2023 Patient:?Adela Isbaelle B :1980???Age:42 Y???Sex:Female Address:[address] [place] [address] * true * Date:? Generated for Printi nadya/Deepa/eTransmitting on:?06/08/2024 05:19 PM EST
--- OUTSIDE RECORDS SUMMARY | 2024-06-08 17:19 | XMS_ITS ---
Author Organization [facility] Address [address] [place] [address] Care Team Providers Care Machine Ii Cutter Name Role Phone Rene Larsen Primary Care Provider Gianni Neil [phone] REASON FOR VISIT no show Encounters Encounter Location Date Provider Diagnosis [facility] [address] [place] [address] 02/05/2023 Gianni Michelle Plan Of Treatment No Information Progress Notes * Isabelle BRUCE BDOB: [birth year] (42 yo F)Acc No.[id number]:02/05/2023 Patient:?Luis Alberto Brucenie Jesenia :1980???Age:42 Y???Sex:Female Address:[address] [place] [address] * true * Date:? Generated for Printi ng/Faandrewg/eTransmitting on:?06/08/2024 05:19 PM EST
--- OUTSIDE RECORDS SUMMARY | 2024-06-08 17:19 | XMS_ITS ---
[facility] Organization [facility] Address [address] [place] [address] Care Team Providers Care Cyber Defense Incident Responder Name Role Phone Rene Larsen Primary Care Provider Gianni Neil [phone] REASON FOR VISIT Wart(s) Encounters Encounter Location Date Provider Diagnosis [facility] [address] [place] [address] 02/05/2023 Gianni Michelle Skin disease L98.9 ; Other viral warts B07.8 ; Pain in left foot M79.672 ; Pain in right foot M79.671 and Metatarsalgia, right foot M77.41 Assessments Encounter Date Diagnosis (ICD Code) Assessment Notes Treatment Notes Treatment Clinical Notes Section Notes 02/05/2023 Skin disease (ICD-10 - L98.9) 02/05/2023 Other viral warts (ICD-10 - B07.8) 02/05/2023 Pain in left foot (ICD-10 - M79.672) 02/05/2023 Pain in right foot (ICD-10 - M79.671) 02/05/2023 Metatarsalgia, right foot (ICD-10 - M77.41) Plan Of Treatment No Information Procedure Notes * Category Sub-Category Detail Notes Wart Treatment Procedure Verrucae(s) were debrided to pin-point bleeding margins with sterile surgical blade (28274), silver nitrate chemocautery applied Progress Notes * Isabelle CHAPMAN BDOB: [birth year] (44 yo F)Acc No.[id number]:02/05/2023 Progress Notes Patient:?Isabelle CHAPMAN Provider:?Gianni Michelle DPM :1980???Age:42 Y???Sex:Female D ate:02/05/2023 Address:[address] [place], [place] [id number] Pcp:Rene Larsen Subjective: * Chief Complaints: * ???1. Wart(s). * HPI: ???Skin problems:?Nature:?aching, burning.?Location:?Bottom, Forefoot, Right , Top, Forefoot, 2nd, Toe(s), B/L .?Duration:?several years.?Onset/Cause:?unknown.?Course:?worse.?Aggravated by:?any pressure, standing, walking.?Treatments:?self care.?Severity/Quality:?moderate, severe.?Wart:?Pt States Last PCP Visit:?Date:?05/20/2022 * ROS:?General/Constitutional:?Nausea?denies.?Vomiting?denies.?Hunger Thirst?denies.?Loss appetite?denies.?Chills?denies.?Fatigue?denies.?Fever?denies.?Night Sweats?denies.?Unexplained weight loss?denies.?Unexplained weight gain?denies.?HEENTM:?Dentures?denies.?Dizziness?denies.?Glasses/contacts?denies.?Retinopathy?de nies.?Blurred/double vision?denies.?TMJ?denies.?Discharge/drainage?denies.?Implants?denies.?Sore throat?denies.?Dental implants?denies.?Hard of hearing ?denies.?Difficulty chewing/swallowing/speaking?denies.?Nose bleeds?denies.?Sore mouth?denies.?Respiratory:?On Oxygen?denies.?Pneumonia/pleurisy?denies.?Bronchitis?denies.?Emphysema?denies.?C oughing?denies.?Cough blood?denies.?Shortness of breath?denies.?Wheezing?denies.?Cardiovascular:?Pacemaker?denies.?MVP?denies.?WPW?denies.?CHF?denies.?Heart attack?denies.?Septal defect?denies.?Rapid beat?denies.?Chest pain ?denies.?Atrial Fib.?denies.?Murmur/Palpitations?denies.?Gastrointestinal:?Hemorrhoids?denies.?Stomach/Abdominal pain?denies.?Dark blood stool?denies.?Irritable bowel ?denies.?Constipation?denies.?Diarrhea?denies.?Hematology:?Swelling?denies.?Clots?denies.?Varicose Veins?denies.?Bruising?denies.?Bleeding problem?denies.?Genitourinary:?Blood urine?denies.?Frequent/Painfu/urination/bladder control?denies.?Kidney stones?denies.?Infection (UTI)?denies.?Nephropathy?denies.?sex trans dis (STD)?denies.?Prostate?denies.?Musculoskeletal:?Hammertoes?denies.?Bunions?denies.?Back Pain?denies.?Muscle Cramps/ Resting?denies.?Muscle cramps / walking?denies.?Generalized aches and pains?denies.?Weakness?denies.?Integ.:?Horton?denies.?Scars?denies.?Corns/calluses?denies.?Ingrown nails?denies.?Painful nails?denies.?Open Sores?denies.?Rashes?denies.?Neurologic:?Difficulty sleeping?denies.?Brain disorder?denies.?Numbness?denies.?Balance trouble?denies.?Confusion?denies.?Fainting/blackouts?denies.?Tingling?denies.?Tr emors?denies.? * Medical History:? Objective: * Vitals:? * Examination: ???General Examination: ?GENERAL APPEARANCE:?pleasant, alert, well nourished, well developed, well hydrated, with good attention to hygene/body habitus, and in no acute distress.?ORIENTED:?person,place, and time.?Neurological: ?SENSORY:?neurological exam reveals intact sensorium, pain sensation normal, vibration sensation intact, pinprick sensation is normal in the lower extremities, anesthesia, burning, tingling, B/L.?Vascular: ?DP PULSES (B):?2/4, B/L.?PT PULSES (B):?2/4, B/L.?CAPILLARY FILL TIME:?3 secs. per digit. B/L.?TROPHIC CONDITION-TEXTURE/ELASTICITY/TURGOR/HAIR GROWTH (B):?normal, B/L.?TEMPERTURE GRADIENT (C):?normal, B/L.?PIGMENTATION:?normal, B/L.?EDEMA (C):?absent, B/L.?TELANGECTASIA:?absent, B/L.?Dermatologic: ?SKIN FINDINGS:?Skin exam reveals normal texture, elasticity, and tugor. There are no masses. The interspaces are clear.?VERRUCA:? Reveals Multiple (--4 plantar right forefoot and 2--one on each 2nd toe dorsum?___ ), multi-loculated , mosaic, round, raised, flat-topped, petechial bleeding papule(s), with cauliflower appearance and interruption of skin lines, with pain to lateral compression, and size estimated at __4__ mm diameter kanu 2nd toe and plantar lesions bria between 5mm to 30mm in diameter with great sensitivity to right 5th mtpj lesion.?Orthopedic: ?MUSCLE STRENGTH:?5/5 all groups in a symmetrical fashion , B/L.? Assessment: * Assessment: 1.?Other viral warts - B07.8 ???2.?Skin disease - L98.9 (Primary)???3.?Pain in left foot - M79.672???4.?Pain in right foot - M79.671???5.?Metatarsalgia, right foot - M77.41??? Plan: * Treatment: * Procedures:?Wart Treatment:?Procedure?Verrucae(s) were debrided to pin-point bleeding margins with sterile surgical blade (74679), silver nitrate chemocautery applied.? * Procedure Codes:?20843 Wart Destruction, 1-14, Modifiers: XS * Images: * The named appointment provid er may or may not be the originator of this progress note, and it is not deemed complete until electronically signed by the appointment provider. Sign off status: Pending * Provider:?Gianni Michelle DPM Date:? 023 Generated for Akanksha covington/Deepa/eTjosiesmitting on:?06/08/2024 05:19 PM EST History and Physical Notes * HPI (History of Present Illness) Category Sub-Category Detail Notes Category Not es Wart Pt States Last PCP Visit: Date:: 05/20/2022 Skin problems Nature: aching, burning Location: Bottom, Forefoot, Ri ght , Top, Forefoot, 2nd, Toe(s), B/L Duration: several years Onset/Cause: unknown Course: worse Aggravated by: any pressure, standi ng, walking Treatments: self care Severity/Quality: moderate, severe Examination Category Sub-Category Detail Notes Category Not es Neurological SENSORY: neurological exa m reveals intact sensorium, pain sensation normal, vibration sensation intact, pinprick sensation is normal in the lower extremities, anesthesia, burning, tingling, B/L Dermatologic SKIN FINDINGS: Skin exam reveal s normal texture, elasticity, and tugor. There are no masses. The interspaces are clear VERRUCA: Reveals Multiple (-- 4 plantar right forefoot and 2--one on each 2nd toe dorsum ___ ), multi-loculated , mosaic, round, raised, flat-topped, petechial bleeding papule(s), with cauliflower appearance and interruption of skin lines, with pain to lateral compression, and size estimated at __4__ mm diameter kanu 2nd toe and plantar lesions bria between 5mm to 30mm in diameter with great sensitivity to right 5th mtpj lesion Orthopedic MUSCLE STRENGTH: 5/5 all groups in a symm etrical fashion , B/L General Examination GENERAL APPEARANCE: pleasant , alert, well nourished, well developed, well hydrated, with good attention to hygene/body habitus, and in no acute distress ORIENTED: person,place, and ti me Vascular DP PULSES (B): 2/4, B/L PT PULSES (B): 2/4, B/L CAPILLARY FILL TIME: 3 secs. per digit. B/L TEMPERTURE GRADIENT (C): normal, B/L TROPHIC CONDITION-TEXTURE/ELASTICITY/TUR GOR/HAIR GROWTH (B): normal, B/L EDEMA (C): absent, B/L TELANGECTASIA: absent, B/L PIGMENTATION: normal, B/L
--- OUTSIDE RECORDS SUMMARY | 2024-06-08 17:20 | XMS_ITS | Patient Health Record ---
Author Organization [facility] Address [address] [place] [address] Care Team Providers Care Skin Care Specialist Name Role Phone Rene Larsen Primary Care Provider Gianni Neil Unavailable [phone] Allergies Allergen (clinical drug ingredient) Drug/Non Drug Allergy documented on EMR Reaction Allergy Type Onset Date Status BuSpar seizure Drug Allergy Active gabapentin Gabapentin itchy/Memory Loss Drug Allergy Active Lactose Unknown Drug Allergy Active tramadol traMADol HCl Hallucinations Drug Allergy Active Vicodin trouble breathing Drug Allergy Active Reason For Referral No Information Medications Medication SIG (Take, Route, Frequency, Duration) Notes Start Date End Date Status oxyCODONE-Acetaminophen 5-325 MG 1 tablet as needed Orally every 6 hrs Active Social History Tobacco Use: Social History Observation Description Date Details (start date - stop date) Current Smoker NA - NA Tobacco Use/Smoking Question Answer Notes Are you a: current smoker Additional Findings: Tobacco User Moderate cigar ette smoker (10-19 cigs/day) Alcohol Screen Question Answer Notes Did you have a drink containing alcohol in the p ast year? No Points 0 Interpretation Negative Plan Of Treatment No Information Insurance Providers Payer Name Payer Address Payer Phone Subscriber Number Group Number Insured Name Patient Relationship to Insured Coverage Start Date Coverage End Date Cigna [address] [place] [id number] Isabelle Chapman Self - patient is the insured Medicare [employer] [address] [facility] [place] [address] [id number] Isabelle Chapman Self - patient is the insured Medical (General) History Medical History History ICD Code Anxiety Epilepsy/Seizures Warts Chicken pox Bipolar disorder Obsessive-compulsive personality disorde r Urinary incontinence Post Traumatic Stress Disorder Surgical History Surgery Date(Month/Year) Lithotripsy 2021 pilonidal cyst excision
== END 2024-06-08 15:54 | disposition home or self-care (01) ==
PROVIDERS: Visit Provider Nurse Practitioner Psychiatric/Mental Health
DX: F11.21 Opioid dependence, in remission (principal)
CPT/HCPCS: 99213

== ENCOUNTER → 2024-06-08 14:47 | Outpatient (BNVA) | payer OTHER, MEDICAID, SELFPAY | PROVIDERS: Visit Provider Nurse Practitioner Psychiatric/Mental Health ==

== ENCOUNTER 2024-08-25 09:49 | Outpatient (REF) | payer OTHER, MEDICAID, SELFPAY ==
--- OUTSIDE RECORDS SUMMARY | 2024-08-25 11:12 | XMS_ITS | Patient Health Record ---
Author Organization [facility] Address [address] [place] [address] Care Team Providers Care Financial Services Professional Name Role Phone Rene Larsen Primary Care Provider Gianni Neil Unavailable [phone] Allergies Allergen (clinical drug ingredient) Drug/Non Drug [...] Date Coverage End Date Cigna [address] [place] [phone] [id number] Isabelle Chapman Self - patient is the insured Medicare [employer] [address] [facility] [address] [id number] Isabelle Chapman Self - patient is the insured Medical (General) History Medical History History ICD Code Anxiety Epilepsy/Seizures Warts Chicken pox Bipolar disorder Obsessive-compulsive personality disorde r Urinary incontinence Post Traumatic Stress Disorder Surgical History Surgery Date(Month/Year) Lithotripsy 2021 pilonidal cyst excision
[2024-08-25 13:52] LABS: Appearance Urine Turbid; Color Urine Yellow; Glucose Urine UA Negative (Negative); Leukocyte Esterase Urine Negative (Negative); Nitrite Urine Negative (Negative); PH 8.5 (5.0-9.0); Specific Gravity - Urine 1.015 (1.005-1.025); Urine Blood Negative (Negative); Urine Ketones Negative (Negative); Urine Protein Negative (Neg-Trace)
== END 2024-08-25 09:50 | disposition home or self-care (01) ==
LOC: HO.HMGCLDS 09:49
DX: R35.89 Other polyuria (principal)
CPT/HCPCS: 81003

== ENCOUNTER 2024-09-14 14:50 | Outpatient (AMB) | payer OTHER, MEDICAID, SELFPAY ==
--- NOTE | 2024-09-14 14:51 | MHC.OFFVIS ---
Vital Signs 09/14/24 14:52 Height 5 ft 4 in Pulse 81 Pulse Source Pulse Oximeter Pulse Oximetry (%) 98 Intake Visit Reasons: MAT Allergies buspirone [From BuSpar] Allergy (Severe, Verified 09/14/24 14:52) Seizure gabapentin Allergy (Unknown, Verified 09/14/24 14:52) memory loss hydrocodone [Vicodin] Allergy (Unknown, Verified 09/14/24 14:52) Anaphylaxis lactose [LACTOSE] Allergy (Unknown, Verified 09/14/24 14:52) gi issues lisinopril Adverse Reaction (Intermediate, Verified 09/14/24 14:52) Diarrhea tramadol Adverse Reaction (Intermediate, Verified 09/14/24 14:52) hallucinations HPI HPI MAT: Details: She is doing well. She takes Suboxone 2/.5 ,3 daily. She has narcan. She has three month visits. [facility] Medical History Cyst near tailbone Obesity Pilonidal cyst Dysuria Bipolar 2 disorder, major depressive episode Actinic keratosis Breast cancer screening by mammogram BCP ( control pills) initiation Anovulatory amenorrhea Fibroids Endometrial polyp Abnormal uterine bleeding Endocervical polyp Shoulder pain, right Hypertension Low back pain radiating to lower extremity Hordeolum Abnormal facial hair Depressive disorder Bipolar 2 disorder, major depressive episode Bipolar disorder, most recent episode manic History of concussion History of hypercholesterolemia History of nephrolithiasis Hypertension Bipolar disorder control counseling At risk for diabetes mellitus Overflow stress urinary incontinence in female Posttraumatic stress disorder Seizure disorder Obsessive compulsive disorder Surgical History History of surgical removal of pilonidal cyst History of lithotripsy Family History Father Chronic mental illness PCK (polycystic kidney disease) Hypothyroidism Post traumatic stress disorder (PTSD) Substance use disorder Mother Hyperthyroidism Post traumatic stress disorder (PTSD) Breast CA, Onset Age: 40 Other Mental health disorder Social History Household Members: Other Household Members Other:: My dog Housing: Apartment Are you a primary career development coordinator/teacher to a significant other at home: No Do you presently have visiting nurse or other home services: No Alcohol intake: never Comment: Discharge date is August 28, 2023 Patient Tobacco Use Status: Former Tobacco user Tobacco use type: Cigarette Cigarette Packs Per Day: 1 Cigarettes Per Day: 20 Years Smoked: 15 e-Cigarette/Vaping Use: Currently Using Second Hand Smoke Exposure: Yes service: No Current occupational status: employed Cognitive needs: No Hearing needs: No Vision needs: No Female Reproductive History Menstrual Age of Menarche: 11 Review of Systems Const All systems reviewed & are unremarkable except as noted in HPI and below Physical Exam Vital Signs: Last Vital Signs Pulse 81 09/14/24 14:52 Pulse Ox 98 09/14/24 14:52 Const General: cooperative Results AMB 14 Panel Urine Drug Screen Urine Marijuana (THC) Negative Last Edit by Kalli Samayoa CMA on 09/14/24 15:03 Urine Cocaine Negative Last Edit by Kalli Samayoa CMA on 09/14/24 15:03 Urine Morphine Negative Last Edit by Kalli Samayoa CMA on 09/14/24 15:03 Urine Methamphetamine Negative Last Edit by Kalli Samayoa CMA on 09/14/24 15:03 Urine Amphetamine Negative Last Edit by Kalli Samayoa CMA on 09/14/24 15:03 Urine Benzodiazepine Negative Last Edit by Kalli Samayoa CMA on 09/14/24 15:03 Urine Barbiturates Negative Last Edit by Kalli Samayoa CMA on 09/14/24 15:03 Urine Methadone Negative Last Edit by Kalli Samayoa CMA on 09/14/24 15:03 Urine Buprenorphine Positive Last Edit by Kalli Samayoa CMA on 09/14/24 15:03 Urine Tricyclic Antidepressant Positive Last Edit by Kalli Samayoa CMA on 09/14/24 15:03 Urine MDMA Negative Last Edit by Kalli Samayoa CMA on 09/14/24 15:03 Urine Oxycodone Negative Last Edit by Kalli Samayoa CMA on 09/14/24 15:03 Urine Phencyclidine Negative Last Edit by Kalli Samayoa CMA on 09/14/24 15:03 Urine Propoxyphene Negative Last Edit by Kalli Samayoa CMA on 09/14/24 15:03 Results Reviewed Results Reviewed: Laboratory Last Values POC Urine Buprenorphine Positive 09/14/24 14:52 POC Urine Morphine Negative 09/14/24 14:52 POC Urine Oxycodone Negative 09/14/24 14:52 POC Urine Methadone Negative 09/14/24 14:52 POC Urine Propoxyphene Negative 09/14/24 14:52 POC Urine Barbiturates Negative 09/14/24 14:52 POC U Tricyclic Antidpr Positive 09/14/24 14:52 POC Urine PCP Negative 09/14/24 14:52 POC Ur Amphetamines Negative 09/14/24 14:52 POC Ur Methamphetamine Negative 09/14/24 14:52 POC Urine MDMA Negative 09/14/24 14:52 POC Ur Benzodiazepine Negative 09/14/24 14:52 POC Urine Cocaine Negative 09/14/24 14:52 POC Ur Marijuana (THC) Negative 09/14/24 14:52 Assessment & Plan Assessment & Plan (1) Opioid use disorder, moderate, in sustained remission: Comment: She is doing well. No Hepatitis C or HIV Ordered three months Suboxone 2/.5 ,3 a day. See in three months. Code(s): F11.21 - Opioid dependence, in remission Category: Medical Plan: na Orders: Orders AMB 14 Panel Urine Drug Screen Today Z51.81 - Encounter for therapeutic drug level monitoring Medications: New buprenorphine-naloxone 2-0.5 mg (Suboxone) place 1 strip/tab under (each) side of tongue 3 film sublingual DAILY 90 ea 2RF 30 days Coding Level of Care Code Est Pt Level 3 (44758) Diagnoses Opioid use disorder, moderate, in sustained remission F11.21
[2024-09-14 14:52] VITALS: PULSE 81; O2SAT 98
--- OUTSIDE RECORDS SUMMARY | 2024-09-14 15:59 | XMS_ITS | Patient Health Record ---
Author Organization [facility] Address [address] [place] [address] Care Team Providers Care Farmworkers Name Role Phone Rene Larsen Primary Care Provider Gianni Neil Unavailable [phone] Allergies Allergen (clinical drug ingredient) Drug/Non Drug [...] Date Coverage End Date Cigna [address] NIKITA Trimble [address] [id number] Isabelle Chapman Self - patient is the insured Medicare [employer] [address] [place] [address] [id number] Isabelle Chapman Self - patient is the insured Medical (General) History Medical History History ICD Code Anxiety Epilepsy/Seizures Warts Chicken pox Bipolar disorder Obsessive-compulsive personality disorde r Urinary incontinence Post Traumatic Stress Disorder Surgical History Surgery Date(Month/Year) Lithotripsy 2021 pilonidal cyst excision
== END 2024-09-14 15:57 | disposition home or self-care (01) ==
LOC: HO.HCC 14:51
PROVIDERS: Visit Provider Internal Medicine
DX: Z51.81 Encounter for therapeutic drug level monitoring (principal); F11.21 Opioid dependence, in remission
CPT/HCPCS: 99213

== ENCOUNTER → 2024-09-14 14:50 | Outpatient (BNVA) | payer OTHER, MEDICAID, SELFPAY | PROVIDERS: Visit Provider Internal Medicine | DX: F11.20 Opioid dependence, uncomplicated (principal) | CPT/HCPCS: 80307 ==

== ENCOUNTER 2024-10-22 09:01 | Outpatient (REF) | payer OTHER, MEDICAID, SELFPAY ==
[2024-10-22 11:20] LABS: Hematocrit 43.6 % (37.0-47.0); Hemoglobin 14.4 g/dl (12.0-16.0); Mean Corpuscular Volume 93.8 fL (80.0-98.0); Mean Platelet Volume 10.9 fL (9.4-12.3); Platelet Count 248 X10*3/uL (160-400); Red Blood Count 4.65 X10*6/uL (4.20-5.50); Red Cell Distribution Width 11.6 % (11.0-16.0); White Blood Count 6.4 X10*3/uL (4.8-10.8)
[2024-10-22 11:27] LABS: Alanine Aminotransferase 28 U/L (0-31); Albumin Level 5.1 g/dL (3.5-5.0); Alkaline Phosphatase 86 U/L (39-117); Anion Gap 13 (12-20); Aspartate Amino Transferase 23 U/L (5-31); Bilirubin Total 0.2 mg/dL (0.0-1.0); Blood Urea Nitrogen 12 mg/dL (9-16); Calcium 9.5 mg/dL (8.4-10.2); Carbon Dioxide 26 mmol/L (22-29); Chloride 107 mmol/L (96-108); Estimated Glomerular Filt Rate > 60; Glucose Fasting 91 mg/dL (60-99); Potassium 3.6 mmol/L (3.3-5.1); Sodium 142 mmol/L (135-145); Total Protein 7.7 g/dL (6.5-8.0)
[2024-10-22 11:41] LABS: Carbamazepine Tegretol 6.1 mcg/mL (5.0-12.0)
[2024-10-26 18:33] LABS: Clozapine (Clozaril) <10 mcg/L; Norclozapine <10 mcg/L (25-400)
== END 2024-10-22 09:02 | disposition home or self-care (01) ==
LOC: HO.HMGCLDS 09:01
PROVIDERS: PCP Internal Medicine; Visit Provider Clinical Nurse Specialist Psychiatric/Mental Health, Adult
DX: F31.73 Bipolar disorder, in partial remission, most recent episode manic (principal)
CPT/HCPCS: 36415; 80053; 80156; 80159; 85027

== ENCOUNTER 2024-12-14 14:54 | Outpatient (AMB) | payer OTHER, MEDICAID, SELFPAY ==
[2024-12-14 15:02] VITALS: BP 138/80; PULSE 72; O2SAT 98; BMI 32.1
--- NOTE | 2024-12-14 15:02 | A.OFFVIS_ITS ---
Vital Signs 12/14/24 15:02 Height 5 ft 4 in Weight 187 lb BMI 32.1 BP 138/80 Pulse 72 Pulse Oximetry (%) 98 Intake Visit Reasons: MAT Allergies buspirone (From BuSpar) Allergy (Severe, Verified 12/14/24 15:03) Seizure gabapentin Allergy (Unknown, Verified 12/14/24 15:03) memory loss hydrocodone (Vicodin) Allergy (Unknown, Verified 12/14/24 15:03) Anaphylaxis lactose (LACTOSE) Allergy (Unknown, Verified 12/14/24 15:03) gi issues lisinopril Adverse Reaction (Intermediate, Verified 12/14/24 15:03) Diarrhea tramadol Adverse Reaction (Intermediate, Verified 12/14/24 15:03) hallucinations Medication List - Last Reconciled 12/14/24 by Bijal Gan NP-C amlodipine 2.5 mg PO DAILY buprenorphine-naloxone 2-0.5 mg (Suboxone) 1 film sublingual TID 30 days carbamazepine ER (Tegretol XR) 200 mg PO QAM clonazepam 0.5 mg PO TID PRN lamotrigine 200 mg PO BID lamotrigine 50 mg (2 x 25 mg) PO BID metformin 250 mg (1/2 x 500 mg) PO BID 90 days naloxone 4 mg/actuation (Narcan) 4 mg intranasal Q2M PRN nicotine 1 inh inhalation Q4-6H PRN olanzapine take 1/2 tablet twice daily (in AM and lunch) and one tablet daily PRN agitation, insomnia olanzapine 10 mg PO BEDTIME ondansetron 4 mg PO Q8H prazosin 1 mg PO BID PRN topiramate 25 mg PO BID 90 days HPI Comments Details: The patient is a 44-year-old female presents for follow-up r/t CORY in remission. Denies use of opioids, alcohol, marijuana and other substances. Does vape on a daily basis. Reports sobriety for past two years and continues to feel stable on buprenorphine-naloxone. 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 [facility] Medical History Cyst near tailbone Obesity Pilonidal cyst Dysuria Bipolar 2 disorder, major depressive episode Actinic keratosis Breast cancer screening by mammogram BCP ( control pills) initiation Anovulatory amenorrhea Fibroids Endometrial polyp Abnormal uterine bleeding Endocervical polyp Shoulder pain, right Hypertension Low back pain radiating to lower extremity Hordeolum Abnormal facial hair Depressive disorder Bipolar 2 disorder, major depressive episode Bipolar disorder, most recent episode manic History of concussion History of hypercholesterolemia History of nephrolithiasis Hypertension Bipolar disorder control counseling At risk for diabetes mellitus Overflow stress urinary incontinence in female Posttraumatic stress disorder Seizure disorder Obsessive compulsive disorder Surgical History History of surgical removal of pilonidal cyst History of lithotripsy Family History Father Chronic mental illness PCK (polycystic kidney disease) Hypothyroidism Post traumatic stress disorder (PTSD) Substance use disorder Mother Hyperthyroidism Post traumatic stress disorder (PTSD) Breast CA, Onset Age: 40 Other Mental health disorder Social History Household Members: Other Household Members Other:: My dog Housing: Apartment Are you a primary reproductive healthcare assistant to a significant other at home: No Do you presently have visiting nurse or other home services: No Alcohol intake: never Comment: Discharge date is August 28, 2023 Patient Tobacco Use Status: Former Tobacco user Tobacco use type: Cigarette Cigarette Packs Per Day: 1 Cigarettes Per Day: 20 Years Smoked: 15 e-Cigarette/Vaping Use: Currently Using Second Hand Smoke Exposure: Yes service: No Current occupational status: employed Cognitive needs: No Hearing needs: No Vision needs: No Female Reproductive History Menstrual Age of Menarche: 11 Review of Systems Const All systems reviewed & are unremarkable except as noted in HPI and below Physical Exam Vital Signs: Last Vital Signs Pulse 72 12/14/24 15:02 BP 138/80 12/14/24 15:02 Pulse Ox 98 12/14/24 15:02 BMI result Body Mass Index 32.1 Const General: cooperative and well groomed Orientation/consciousness: patient oriented x3 Limitations: no limitations Neuro General: patient oriented x3 Psych Appearance: well kempt Mental Status: mental status grossly normal Speech and movement: Normal speech and movement present Affect: normal affect Attitude: cooperative Thought process: Normal thought process present Thought content: Normal thought content present Insight: Good insight present (Psych) Judgement: Good judgement present (Psych) Assessment & Plan Assessment & Plan (1) Opioid use disorder, moderate, in sustained remission: Code(s): F11.21 - Opioid dependence, in remission Category: Medical Plan The plan of care is to continue with buprenorphine-naloxone 2-0.5 mg TID and decrease vaping frequency. Narcan supplied today. Medications: Refilled buprenorphine-naloxone 2-0.5 mg (Suboxone) place 1 strip/tab under (each) side of tongue 1 film sublingual TID 90 ea 2RF 30 days Patient Instructions: - Continue with buprenorphine-naloxone 2-0.5 mg three times per day. - Decrease vaping frequency. - Follow up in three months or sooner, if needed. - Narcan supplied today. - Call with questions, concerns, to [facility]. - The patient verbalized understanding and agreed with plan of care. Coding Level of Care Code Est Pt Level 3 (94870) Diagnoses Opioid use disorder, moderate, in sustained remission F11.21
--- OUTSIDE RECORDS SUMMARY | 2024-12-14 15:38 | XMS_ITS | Patient Health Record ---
Author Organization [facility] Address [address] [place] [address] Care Team Providers Care Imaging Aide Name Role Phone Rene Larsen Primary Care Provider Gianni Neil Unavailable [phone] Allergies Allergen (clinical drug ingredient) Drug/Non Drug [...] Date Coverage End Date Cigna [address] NIK[place] Trim[place] [phone] [id number] Isabelle Chapman Self - patient is the insured Medicare [employer] [address] [place] [address] [id number] Isabelle Chapman Self - patient is the insured Medical (General) History Medical History History ICD Code Anxiety Epilepsy/Seizures Warts Chicken pox Bipolar disorder Obsessive-compulsive personality disorde r Urinary incontinence Post Traumatic Stress Disorder Surgical History Surgery Date(Month/Year) Lithotripsy 2021 pilonidal cyst excision
== END 2024-12-14 15:16 | disposition home or self-care (01) ==
LOC: HO.HCC 14:54
PROVIDERS: PCP Internal Medicine; Visit Provider Clinical Nurse Specialist Psychiatric/Mental Health
DX: F11.21 Opioid dependence, in remission (principal)
CPT/HCPCS: 99213

== ENCOUNTER 2025-03-16 14:49 | Outpatient (AMB) | payer OTHER, MEDICAID, SELFPAY ==
[2025-03-16 15:02] VITALS: BP 146/84; PULSE 78; O2SAT 98
--- NOTE | 2025-03-16 15:02 | A.OFFVIS_ITS ---
Vital Signs 03/16/25 15:02 BP 146/84 H Pulse 78 Pulse Oximetry (%) 98 Intake Visit Reasons: MAT Allergies buspirone (From BuSpar) Allergy (Severe, Verified 12/14/24 15:03) Seizure gabapentin Allergy (Unknown, Verified 12/14/24 15:03) memory loss hydrocodone (Vicodin) Allergy (Unknown, Verified 12/14/24 15:03) Anaphylaxis lactose (LACTOSE) Allergy (Unknown, Verified 12/14/24 15:03) gi issues lisinopril Adverse Reaction (Intermediate, Verified 12/14/24 15:03) Diarrhea tramadol Adverse Reaction (Intermediate, Verified 12/14/24 15:03) hallucinations HPI Comments Details: A 44-year-old female presents for a follow-up visit r/t CORY in sustained remission with buprenorphine-naloxone 2-0.5 mg TID. Denies use of opiates, alcohol, and other substances does acknowledge vaping for nicotine. Engages in conversation regarding feeling happy as she recently celebrated 3 years of sobriety and looking forward to spending quality time with family during the holidays. [facility] Medical History Cyst near tailbone Obesity Pilonidal cyst Dysuria Bipolar 2 disorder, major depressive episode Actinic keratosis Breast cancer screening by mammogram BCP ( control pills) initiation Anovulatory amenorrhea Fibroids Endometrial polyp Abnormal uterine bleeding Endocervical polyp Shoulder pain, right Hypertension Low back pain radiating to lower extremity Hordeolum Abnormal facial hair Depressive disorder Bipolar 2 disorder, major depressive episode Bipolar disorder, most recent episode manic History of concussion History of hypercholesterolemia History of nephrolithiasis Hypertension Bipolar disorder control counseling At risk for diabetes mellitus Overflow stress urinary incontinence in female Posttraumatic stress disorder Seizure disorder Obsessive compulsive disorder Surgical History History of surgical removal of pilonidal cyst History of lithotripsy Family History Father Chronic mental illness PCK (polycystic kidney disease) Hypothyroidism Post traumatic stress disorder (PTSD) Substance use disorder Mother Hyperthyroidism Post traumatic stress disorder (PTSD) Breast CA, Onset Age: 40 Other Mental health disorder Social History Household Members: Other Household Members Other:: My dog Housing: Apartment Are you a primary transition of care specialist to a significant other at home: No Do you presently have visiting nurse or other home services: No Alcohol intake: never Comment: Discharge date is August 28, 2023 Patient Tobacco Use Status: Former Tobacco user Tobacco use type: Cigarette Cigarette Packs Per Day: 1 Cigarettes Per Day: 20 Years Smoked: 15 e-Cigarette/Vaping Use: Currently Using Second Hand Smoke Exposure: Yes service: No Current occupational status: employed Cognitive needs: No Hearing needs: No Vision needs: No Female Reproductive History Menstrual Age of Menarche: 11 Review of Systems Const All systems reviewed & are unremarkable except as noted in HPI and below Physical Exam Vital Signs: Last Vital Signs Pulse 78 03/16/25 15:02 BP 146/84 H 03/16/25 15:02 Pulse Ox 98 03/16/25 15:02 Const General: cooperative Assessment & Plan Assessment & Plan (1) Opioid use disorder, moderate, in sustained remission: Code(s): F11.21 - Opioid dependence, in remission Category: Medical Plan The plan of care is to continue with buprenorphine-naloxone 2-0.5 mg TID and engage in risk reduction activities to minimize vaping for nicotine. Follow-up in 3 months or sooner if needed. Medications: New buprenorphine-naloxone 2-0.5 mg (Suboxone) One film sublingually 3 times per day 1 film sublingual TID 90 ea 2RF 30 days Patient Instructions: - Continue with buprenorphine-naloxone as prescribed. - Engage in risk reduction activities to minimize vaping for nicotine. - Follow-up in 3 months or sooner if needed. - Call with questions, concerns, or to report side effects/new onset of symptoms to [facility]. - The patient verbalized understanding and agreed with plan of care. Coding Level of Care Code Est Pt Level 3 (78085) Diagnoses Opioid use disorder, moderate, in sustained remission F11.21
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
--- OUTSIDE RECORDS SUMMARY | 2025-03-16 17:42 | XMS_ITS | Patient Health Record ---
Author Organization [facility] Address [address] [place] [address] Care Team Providers Care Destination Sign Repairer Name Role Phone Rene Larsen Primary Care Provider Gianni Lewis Unavailable [phone] Allergies Allergen (clinical drug ingredient) Drug/Non Drug [...] Date Coverage End Date C[employer]a [address] NIKITA Trimble [address] [id number] Isabelle Chapman Self - patient is the insured Medicare [employer] [address] [facility] [place] [address] [id number] Adela Isabelle Self - patient is the insured Medical (General) History Medical History History ICD Code Anxiety Epilepsy/Seizures Warts Chicken pox Bipolar disorder Obsessive-compulsive personality disorde r Urinary incontinence Post Traumatic Stress Disorder Surgical History Surgery Date(Month/Year) Lithotripsy 2021 pilonidal cyst excision
== END 2025-03-16 15:13 | disposition home or self-care (01) ==
PROVIDERS: PCP Internal Medicine; Visit Provider Clinical Nurse Specialist Psychiatric/Mental Health
DX: F11.21 Opioid dependence, in remission (principal)
CPT/HCPCS: 99213